=== PATIENT | male | born 1935 | race Caucasian/White ===

== ENCOUNTER → 2016-12-03 | Outpatient (CLI) | payer BC ==
[~2016-12-03] MED LIST: ASPCH81X PO; BCTO EXT; CEPH500C2 PO; CHOL400C10 PO; CIPR-255 PO; CIPR1TAB10 PO; CLC/300 PO; CMD5 PO; CYAN100048 PO; DILT-113 PO; DILT180C58 PO; GLUC15002 PO; HYDR-5688 PO; LEVO100T PO; LPR25 PO; MAGN250T8 PO; METR-163 PO; MULT1CHW22 PO; SACC250C3 PO; WARF5TAB7 PO
[2016-12-03 13:25] LABS: URINE APPEARANCE CLEAR (CLEAR); URINE BILIRUBIN NEG (NEG); URINE COLOR YELLOW; URINE EPITHELIAL CELL AUTO 0-5 /lpf (0-5); URINE NITRITE NEG (NEG); URINE SPECIFIC GRAVITY 1.017 (1.000-1.030); UROBILINOGEN NEG (NEG); ZZUR CULT IF INDIC CLEAN CATCH NO
[2016-12-03 13:36] LABS: MANUAL MICROSCOPIC REQUIRED? NO; REVIEW REQ? NO
== END | disposition home or self-care (01) ==
LOC: C.LABBC 11:20
PROVIDERS: ATTEND Internal Medicine
DX: R35.0 Frequency of micturition (principal)

== ENCOUNTER 2016-12-16 12:35 | Inpatient (IN) | payer BC, OTHER ==
[~2016-12-16] VITALS: Ht 175.3 cm; Wt 80.6 kg
[~2016-12-16 12:35] MED LIST changes: -BCTO EXT; -CEPH500C2 PO; -CIPR-255 PO; -CIPR1TAB10 PO; -CLC/300 PO; -CMD5 PO; -DILT-113 PO; -DILT180C58 PO; -HYDR-5688 PO; -LPR25 PO; -METR-163 PO; -SACC250C3 PO; -WARF5TAB7 PO
[2016-12-16] MEDS ORDERED: DILTIAZEM BOLUS / DRIP IV STA ×2 (13:31→21:20)
[2016-12-16] MEDS ORDERED: SODIUM CHLORIDE 0.9% 1000ML 1,000 ML IV STA ×2 (13:31→14:53)
[2016-12-16] MEDS ORDERED: DILTIAZEM HCL 5 MG/ML 5 ML VIAL ONE (13:36)
[2016-12-16 13:40] LABS: BASO % 0.1 %; BASO ABS # 0.01 K/uL (0-0.2); COMPLETE YES; HEMATOCRIT 43.4 % (42-52); IG% 0.4 %; LYMPH ABS # 0.47 K/uL (1.2-3.4); MEAN CELL VOLUME 92.1 fL (80-100); MEAN CORPUSCULAR HEMOGLOBIN 32.7 pg (25-34); MEAN CORPUSCULAR HGB CONC 35.5 g/dl (32-36); MEAN PLATELET VOLUME 10.5 fL (7.4-10.4); MONO % 6.9 %; NEUT % 87.6 %; PLATELET COUNT 202 K/uL (130-400); RED BLOOD COUNT 4.71 M/uL (4.7-6.1); WHITE BLOOD COUNT 9.43 K/uL (4.8-10.8)
[2016-12-16] MEDS ORDERED: DILTIAZEM HCL INJ 125 MG in DEXTROSE 5% 100ML IV PRN (13:45)
[2016-12-16 13:47] LABS: ALT/SGPT 500 U/L (12-78); AST/SGOT 548 U/L (15-37); BLOOD UREA NITROGEN 17 mg/dl (7-18); CALCIUM 8.6 mg/dl (8.5-10.1); CARBON DIOXIDE 24 mmol/L (21-32); CHLORIDE 105 mmol/L (98-107); GLUCOSE 164 mg/dl (70-99); POTASSIUM 3.9 mmol/L (3.5-5.1); SODIUM 138 mmol/L (136-145)
[2016-12-16 13:53] LABS: ALKALINE PHOSPHATASE 391 U/L (45-117); CKMB/CK RATIO 4.1 (0-3.0)
--- NOTE | 2016-12-16 13:53 | DIAGNOSTIC IMAGING REPORT ---
SINGLE VIEW CHEST CLINICAL HISTORY: Atypical chest pain. FINDINGS: An AP, portable, upright chest radiograph is obtained. No prior studies are available for comparison at the time of dictation. The examination is mildly degraded by portable technique and patient rotation. The heart is mildly enlarged and there is atherosclerotic calcification of the thoracic aorta. The pulmonary vasculature is noncongested. There is mild bibasilar atelectasis. No airspace consolidation or large pleural effusion is seen. Linear atelectasis is noted in the right midlung. No pneumothorax is seen. The skeletal structures are osteopenic. The bony thorax is grossly intact. IMPRESSION: Mild cardiac enlargement with no acute cardiopulmonary abnormality. Electronically signed by: Stanley Lancaster M.D. 12/16/2016 1:52 PM Dictated Date/Time: 12/16/2016 1:51 PM
[2016-12-16] MEDS ORDERED: OPTIRAY 320 IV PRN (14:00)
--- NOTE | 2016-12-16 14:34 | DIAGNOSTIC IMAGING REPORT ---
CT SCAN OF THE ABDOMEN AND PELVIS WITH IV CONTRAST CLINICAL HISTORY: Lower abdominal pain. COMPARISON STUDY: Abdominal CT dated 08/28/2006. TECHNIQUE: Following the IV administration of 92 cc of Optiray 320, CT scan of the abdomen and pelvis is performed from the lung bases to the proximal femora. Images are reviewed in the axial, sagittal, and coronal planes. IV contrast was administered without complication. Automated dose control exposure was utilized. CT DOSE: 391.80 mGy.cm FINDINGS: Lung bases: The heart is enlarged and there is trace pericardial effusion. There is bibasilar atelectasis. No airspace consolidation or pleural effusion is identified. A tiny hiatal hernia is identified. Liver: The contrast-enhanced liver is normal in size, contour, and attenuation. There is mild central intrahepatic biliary ductal dilatation. The hepatic veins and portal veins are patent. An 8 mm hypodensity in the left lobe likely represents a cyst but is too small for definitive characterization. Inflammatory stranding is noted in the hepatic hilum secondary to acute cholecystitis. Gallbladder: The gallbladder is distended. The gallbladder wall is markedly thickened, and there is extensive pericholecystic inflammatory change as well as pericholecystic fluid. The appearance is consistent with severe acute cholecystitis. Foci of gas are noted within the gallbladder lumen. Spleen: Normal in size and attenuation. Pancreas: Unremarkable. Adrenal glands: Unremarkable. Kidneys: The contrast enhanced kidneys demonstrate mild cortical atrophy and are without hydronephrosis. The kidneys enhance symmetrically. There is a 5.5 cm left renal cyst. Abdominal vasculature: The abdominal aorta is normal in course and caliber noting moderate atherosclerotic calcification. Bowel: Duodenal diverticula are noted. No bowel obstruction is seen. The colon is tortuous. There is mild colonic diverticulosis without CT evidence of acute diverticulitis. Colonic fecal retention is observed. There is mild colonic wall thickening at the hepatic flexure, likely related to adjacent cholecystitis. The appendix is not identified and reported surgically absent. Peritoneum: There is no intraperitoneal free air or abdominal ascites. Lymphadenopathy: None. Pelvic viscera: The bladder, prostate, and seminal vesicles are normal as visualized. There is a small fat-containing right inguinal hernia. Skeletal structures: The skeletal structures are osteopenic. There is mild to moderate lumbosacral spondylosis. No lytic or blastic lesions are seen. IMPRESSION: 1. Findings are consistent with severe acute cholecystitis, possibly emphysematous. Surgical consultation is advised. 2. There is wall thickening in the hepatic flexure of the colon, likely related to adjacent cholecystitis. 3. Cardiomegaly. 4. Mild colonic diverticulosis without CT evidence of acute diverticulitis. 5. Additional findings as above. Electronically signed by: Stanley Lancaster M.D. 12/16/2016 2:33 PM Dictated Date/Time: 12/16/2016 2:24 PM
[2016-12-16] MEDS ORDERED: PIPERACILLIN/TAZOBACTAM 4.5 GM/100ML D5W IV STA (14:48)
--- NOTE | 2016-12-16 15:23 | History and Physical ---
History & Physical Date & Time of Service: Dec 16, 2016 at 15:16 Chief Complaint: Fibrilations Primary Care Physician: Jose Ramon Ocampo M.D. History of Present Illness Source: patient, family This is an 81yo M with past medical history of hypothyroidism, BPH, vitamin B deficiency, who presents after approximately 5 days of flulike symptoms including fevers and chills, now with abdominal pain. The patient was in his PCPs office this morning for abdominal pain complaints, where he was found to be in A. fib with heart rate greater than 120 and so was sent to the ER. The patient admits to feeling more fatigued recently. He has been short of breath with one flight of stairs, which normally wouldn't cause sob. He denies lightheadedness or dizziness. Patient reports that he had Tmax= 101.8 on Monday night, since then his temperature has been around 100 F. Abdominal pain has been diffuse, worse after meals, although he has not been eating as much as usual. The patient has been able to tolerate fluids. He denies any nausea or vomiting. Patient has had one bowel movement since Monday, he denies diarrhea or history of constipation. The patient reports that his pain right now is tolerable, he has not required any IV pain medication, he has only taken Tylenol as an antipyretic. In the ER with liver function tests are elevated. Total bili is 4.2, direct = 2.5, AST= 548, ALC 500, ALk phos= 391, lipase = 4051, albumin 2.5. CBC is WNL EKG showing A. fib with RVR, Cardizem drip running at bedside. Past Medical/Surgical History Hypothyroidism Vitamin B deficiency BPH with LUTS Social History Smoking Status: Former Smoker Alcohol Use: socially (3 glasses of wine per week. 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[employer]) Immunizations History of Tetanus Vaccine?: Unknown History of Pneumococcal: Unknown History of Hepatitis B Vaccine: Unknown Multi-Drug Resistant Organisms History of MDRO: No Allergies Coded Allergies: Penicillins (Unverified Allergy, Unknown, RASH, 12/16/16) Home Medications Scheduled Cholecalciferol (Vitamin D 400), 400 UNITS PO DAILY Cyanocobalamin (Vitamin B-12), Unknown Dose PO DAILY Kqskqfxkxqn-Bwbkdszwxad-Ohw C- (Glucosamine 1500 Complex), 1 CAP PO DAILY Levothyroxine Sodium (Synthroid), 100 MCG PO DAILY Magnesium Oxide (Mg Supplement (Magnesium), Unknown Dose PO DAILY Review of Systems Constitutional: + fatigue, + fever, No chills, No sweats Eyes: No diplopia, No discharge ENT: No sore throat, No trouble swallowing Respiratory: + dyspnea on exertion, No cough, No dyspnea at rest, No sputum Cardiovascular: No chest pain, No palpitations Abdomen: + pain, No constipation, No diarrhea, No nausea, No vomiting Musculoskeletal: No calf pain, No joint pain, No swelling Genitourinary - Male: + dysuria (occasionally), + urinary frequency, No hematuria Neurologic: No numbness/tingling Psychiatric: No depression symptoms Endocrine: No fatigue Integumentary: No itch, No rash Physical Exam Vital Signs Date Time Temp Pulse Resp B/P Pulse Ox O2 Delivery O2 Flow Rate FiO2 12/16/16 14:30 108 22 119/73 96 Room Air 12/16/16 13:54 111 16 130/76 95 12/16/16 13:48 122 20 137/89 96 12/16/16 13:32 133 12/16/16 12:42 36.6 133 18 147/77 95 Room Air General Appearance: WD/WN, no apparent distress, + thin Head: normocephalic, atraumatic Eyes: PERRL, EOMI ENT: hearing grossly normal, pharynx normal Neck: supple, thyroid normal Respiratory/Chest: lungs clear, normal breath sounds, no respiratory distress, no accessory muscle use Cardiovascular: + tachycardia, + irregularly irregular Abdomen/GI: normal bowel sounds, soft, no organomegaly, + tenderness (right upper quadrant, no rebound tenderness or guarding) Back: normal inspection Extremities/Musculoskelatal: no calf tenderness, no pedal edema Neurologic/Psych: alert, normal reflexes, oriented x 3 Skin: normal color, warm/dry Diagnostics Laboratory Results Results Past 24 Hours Test 12/16/16 13:01 12/16/16 15:13 Range/Units White Blood Count 9.43 4.8-10.8 K/uL Red Blood Count 4.71 4.7-6.1 M/uL Hemoglobin 15.4 14.0-18.0 g/dL Hematocrit 43.4 42-52 % Mean Corpuscular Volume 92.1 80-100 fL Mean Corpuscular Hemoglobin 32.7 25-34 pg Mean Corpuscular Hemoglobin Concent 35.5 32-36 g/dl Platelet Count 202 130-400 K/uL Mean Platelet Volume 10.5 7.4-10.4 fL Neutrophils (%) (Auto) 87.6 % Lymphocytes (%) (Auto) 5.0 % Monocytes (%) (Auto) 6.9 % Eosinophils (%) (Auto) 0.0 % Basophils (%) (Auto) 0.1 % Neutrophils # (Auto) 8.26 1.4-6.5 K/uL Lymphocytes # (Auto) 0.47 1.2-3.4 K/uL Monocytes # (Auto) 0.65 0.11-0.59 K/uL Eosinophils # (Auto) 0.00 0-0.5 K/uL Basophils # (Auto) 0.01 0-0.2 K/uL RDW Standard Deviation 47.8 36.4-46.3 fL RDW Coefficient of Variation 14.2 11.5-14.5 % Immature Granulocyte % (Auto) 0.4 % Immature Granulocyte # (Auto) 0.04 0.00-0.02 K/uL Sodium Level 138 136-145 mmol/L Potassium Level 3.9 3.5-5.1 mmol/L Chloride Level 105 98-107 mmol/L Carbon Dioxide Level 24 21-32 mmol/L Anion Gap 9.0 3-11 mmol/L Blood Urea Nitrogen 17 7-18 mg/dl Creatinine 1.10 0.60-1.40 mg/dl Est Creatinine Clear Calc Drug Dose 52.7 ml/min Estimated GFR () 72.6 Estimated GFR (Non- 62.6 BUN/Creatinine Ratio 15.0 10-20 Random Glucose 164 70-99 mg/dl Calcium Level 8.6 8.5-10.1 mg/dl Total Bilirubin 4.2 0.2-1 mg/dl Direct Bilirubin 2.5 0-0.2 mg/dl Aspartate Amino Transf (AST/SGOT) 548 15-37 U/L Alanine Aminotransferase (ALT/SGPT) 500 12-78 U/L Alkaline Phosphatase 391 45-117 U/L Total Creatine Kinase 29 39-308 U/L Creatine Kinase MB 1.2 0.5-3.6 ng/ml Creatine Kinase MB Ratio 4.1 0-3.0 Troponin I < 0.015 0-0.045 ng/ml Total Protein 7.0 6.4-8.2 gm/dl Albumin 2.5 3.4-5.0 gm/dl Lipase 4051 73-393 U/L Diagnostic Radiology CT SCAN OF THE ABDOMEN AND PELVIS WITH IV CONTRAST CLINICAL HISTORY: Lower abdominal pain. COMPARISON STUDY: Abdominal CT dated 08/28/2006. TECHNIQUE: Following the IV administration of 92 cc of Optiray 320, CT scan of the abdomen and pelvis is performed from the lung bases to the proximal femora. Images are reviewed in the axial, sagittal, and coronal planes. IV contrast was administered without complication. Automated dose control exposure was utilized. CT DOSE: 391.80 mGy.cm FINDINGS: Lung bases: The heart is enlarged and there is trace pericardial effusion. There is bibasilar atelectasis. No airspace consolidation or pleural effusion is identified. A tiny hiatal hernia is identified. Liver: The contrast-enhanced liver is normal in size, contour, and attenuation. There is mild central intrahepatic biliary ductal dilatation. The hepatic veins and portal veins are patent. An 8 mm hypodensity in the left lobe likely represents a cyst but is too small for definitive characterization. Inflammatory stranding is noted in the hepatic hilum secondary to acute cholecystitis. Gallbladder: The gallbladder is distended. The gallbladder wall is markedly thickened, and there is extensive pericholecystic inflammatory change as well as pericholecystic fluid. The appearance is consistent with severe acute cholecystitis. Foci of gas are noted within the gallbladder lumen. Spleen: Normal in size and attenuation. Pancreas: Unremarkable. Adrenal glands: Unremarkable. Kidneys: The contrast enhanced kidneys demonstrate mild cortical atrophy and are without hydronephrosis. The kidneys enhance symmetrically. There is a 5.5 cm left renal cyst. Abdominal vasculature: The abdominal aorta is normal in course and caliber noting moderate atherosclerotic calcification. Bowel: Duodenal diverticula are noted. No bowel obstruction is seen. The colon is tortuous. There is mild colonic diverticulosis without CT evidence of acute diverticulitis. Colonic fecal retention is observed. There is mild colonic wall thickening at the hepatic flexure, likely related to adjacent cholecystitis. The appendix is not identified and reported surgically absent. Peritoneum: There is no intraperitoneal free air or abdominal ascites. Lymphadenopathy: None. Pelvic viscera: The bladder, prostate, and seminal vesicles are normal as visualized. There is a small fat-containing right inguinal hernia. Skeletal structures: The skeletal structures are osteopenic. There is mild to moderate lumbosacral spondylosis. No lytic or blastic lesions are seen. IMPRESSION: 1. Findings are consistent with severe acute cholecystitis, possibly emphysematous. Surgical consultation is advised. 2. There is wall thickening in the hepatic flexure of the colon, likely related to adjacent cholecystitis. 3. Cardiomegaly. 4. Mild colonic diverticulosis without CT evidence of acute diverticulitis. 5. Additional findings as above. Electronically signed by: Stanley Lancaster M.D. 12/16/2016 2:33 PM Dictated Date/Time: 12/16/2016 2:24 PM The status of this report is Signed. SINGLE VIEW CHEST CLINICAL HISTORY: Atypical chest pain. FINDINGS: An AP, portable, upright chest radiograph is obtained. No prior studies are available for comparison at the time of dictation. The examination is mildly degraded by portable technique and patient rotation. The heart is mildly enlarged and there is atherosclerotic calcification of the thoracic aorta. The pulmonary vasculature is noncongested. There is mild bibasilar atelectasis. No airspace consolidation or large pleural effusion is seen. Linear atelectasis is noted in the right midlung. No pneumothorax is seen. The skeletal structures are osteopenic. The bony thorax is grossly intact. IMPRESSION: Mild cardiac enlargement with no acute cardiopulmonary abnormality. Electronically signed by: Stanley Lancaster M.D. 12/16/2016 1:52 PM Dictated Date/Time: 12/16/2016 1:51 PM The status of this report is Signed. Draft = Not yet reviewed or approved by Radiologist. Signed = Reviewed and approved by Radiologist. EKG Vent. rate 123 BPM UT interval * ms QRS duration 138 ms QT/QTc 328/469 ms P-R-T axes * -77 20 Atrial fibrillation with RVR, right bundle branch block Impression Assessment and Plan This is an 81yo M with past medical history of hypothyroidism, BPH, vitamin B deficiency, who presents after approximately 5 days of flulike symptoms including fevers and chills, now with abdominal pain. Acute cholecystitis Pancreatitis - Admit to telemetry - Consult with general surgery by the ED, patient is requesting not to see Dr. Garcia as he is one of their neighbors - GI consulted, Dr. Shepard. Will order MRCP - CBC WNL, afebrile, no leukocytosis - Cover with antibiotics Cipro & Flagyl -patient was started on Zosyn while in the ED however he is allergic to penicillins - Nothing by mouth except sips and chips, meds - NSS @ 125mL/hr at - Pain seems to be well controlled at this time, continue on Tylenol prn for fever and pain, morphine sulfate 2 mg IV Q3H prn for severe pain - Antiemetics - Zofran on board, patient has not complained of nausea - Follow LFTs, amylase, and lipase with morning labs A. fib with RVR - New onset in the setting of acute cholecystitis - Started on a Cardizem drip in the ER, likely will resolve once infectious process resolved - Placed on telemetry unit Hypothyroidism - Continue levothyroxine BPH - Not on any medication, newly diagnosed, monitor for signs of increased urinary frequency or difficulty with voiding. Can consider a postvoid residuals and bladder scanning if necessary Vitamin B deficiency DVT prophylaxis: Teds, SCDs, out of bed CODE STATUS: DO NOT RESUSCITATE, discussed with the patient and his at bedside Disposition: Patient is from home, will need PT OT eval, discharge when medically stable Level of Care Telemetry Advanced Directives Existing Advance Directive: Yes Existing Living Will: Yes Existing Power of Waste Reclaimer: Yes Existing Health Care Proxy: Yes Resuscitation Status DO NOT RESUSCITATE VTE Prophylaxis VTE Risk Assessment Done? Y/N: Yes Risk Level: Very Low Given or contraindicated: T.E.Es Stockmisti, SCD's Assessment and Plan Attending Addendum: I have physically seen and examined this patient, have directed their medical care, have supervised the PA's activity, and agree with the H&P as noted above, with the following changes: The patient is awake, well-developed and adequately nourished, alert and oriented 3, normocephalic and atraumatic, lying in bed and in no acute distress. HEENT--PERRL, EOMI, mucous membranes and oropharynx dry. Neck--supple, no JVD or bruits, thyroid normal, trachea midline, no adenopathy. Heart--irregularly irregular and tachycardic, no murmurs, rubs or gallops. Lungs--clear bilaterally with good air movement, no respiratory distress, no accessory muscle use. Abdomen--normal bowel sounds and soft, tender right upper quadrant and epigastrium, nondistended, no hernias or masses. Extremities--no cyanosis, clubbing or edema. There are good distal pulses b/l. Dermatologic--normal skin turgor, normal color, warm and dry, no abnormal lymph nodes, no rash. Neurologic--cranial nerves II through XII grossly intact, motor and sensory examination normal. Rheumatologic--normal range of motion, nontender, muscles and joints. Psychiatric--normal affect. Assessment and Plan: Severe acute possibly emphysematous cholecystitis with gallstone pancreatitis-- the patient is allergic to penicillin, we'll therefore be started on Cipro 40 mg IV every 12 hours and Flagyl 500 mg IV every 8 hours, normal saline with potassium chloride 20 mEq at 125 mils per hour, Zofran 4 mg IV every 6 hours when necessary, Protonix 40 mg IV daily and morphine sulfate 2-4 mg IV every 2 hours when necessary. Repeat CBC with differential, chemistry profile and magnesium in the a.m. Patient has been seen by surgery Dr. Lay, who will likely perform surgery the following day. We will order an MRCP to be done tonight, and the patient will be seen by Dr. Marcos Shepard from gastroenterology. Atrial fibrillation with RVR--continue Cardidemetrius [facility]. He does have a brother with atrial fibrillation, so there is likely a genetic component being aggravated by sepsis. Hypothyroidism--continue levothyroxin sodium at 100 g by mouth daily. BPH--monitor for any symptoms of urinary retention. He has not been on any medications at this point.
[2016-12-16 15:28] LABS: REVIEW REQ? YES; URINE APPEARANCE CLEAR (CLEAR); URINE BILIRUBIN 1+ (NEG); URINE COLOR DK YELLOW; URINE NITRITE NEG (NEG); URINE PH 5.5 (4.5-7.5); URINE SPECIFIC GRAVITY 1.042 (1.000-1.030); UROBILINOGEN NEG (NEG)
[2016-12-16 15:29] LABS: MANUAL MICROSCOPIC REQUIRED? NO
[2016-12-16] MEDS: SODIUM CHLORIDE 0.9% 1000ML 1,000 ML IV SCH ×2 (15:39→23:39)
[2016-12-16] MEDS ORDERED: POLYETHYLENE (MIRALAX) 17 GM PACK PO PRN (15:45)
[2016-12-16] MEDS ORDERED: ONDANSETRON INJ 2 MG/ML 2 ML VIAL IV PRN (15:45)
[2016-12-16] MEDS ORDERED: ACETAMINOPHEN 325 MG TAB PO PRN (15:45)
[2016-12-16] MEDS ORDERED: MoRPHine SULFATE 2 MG/ML CARP IV PRN (15:45)
[2016-12-16 15:50] LABS: MAGNESIUM 2.3 mg/dl (1.8-2.4)
[2016-12-16] MEDS ORDERED: PIPERACILLIN/TAZOBACTAM 4.5 GM/100ML D5W ONE (16:10)
--- NOTE | 2016-12-16 17:13 | HISTORY & PHYSICAL EXAMINATION ---
DATE OF ADMISSION: 12/16/2016 SUMMARY: I was called by the ER physician to see this 81-year-old gentleman who had findings of acute cholecystitis, possible common bile duct obstruction. The patient had been in normal state of health, in fact he rides his bike almost daily, I know that since he is my neighbor, lives across the street from me and I see him fairly regularly. On Monday he developed some abdominal pain that was quite significant, this persisted to the point that he was nauseated, although today he has been able to take some oral intake. Denies any diarrhea. He did have some chills, quite sweaty feelings on Monday. When he came in this afternoon here in the ER, he was found to have a temperature of 36.7, a pulse 133, respirations 18, blood pressure 147/77. He is alert, coherent and in no distress. His past medical history is remarkable obtained that from the chart and his . He had a previous open surgery in the right lower quadrant and taken out an interval appendectomy for bowel pressure, prior perforation and there was no malignancy. Other than that he denies any other surgical significant history. His medication list was reviewed. At this time, Jamel has obviously a slight color of scleral icterus, but is alert, coherent and in no distress and has no abdominal discomfort as he is lying there. The physical findings of note at this time showed a significant rebound tenderness in the right upper quadrant. The abdomen is otherwise softly distended, no other tenderness appreciated. Laboratory frausto his white count is 9.43, does have a left shift. His lipase was 4051, also significantly elevated amylase. Liver function tests were all elevated consistent with a common bile duct obstruction. The CAT scan that was obtained showed severe acute cholecystitis, possibly emphysematous, there was no free air and no abdominal ascites. Also has some mild colonic thickening along the splenic flexure. Duodenal diverticulum was also noted. RECOMMENDATIONS: At this time after discussing with Dr. Argueta is to admit the patient, since this has been going on for approximately 5 days now, certainly on a clinical basis he has got a significant inflammatory process in the right upper quadrant. Eventually, they did not mention any stones. This is an acute process although I suspect that there is and with the amylase and lipase being elevated, I suspect the primary problem is cholelithiasis with choledocholithiasis. We should admit the patient, give him broad-spectrum antibiotics. There may be a need for an ERCP prior to proceeding with any surgery for his gallbladder. This was discussed in detail with the patient and his as far as our plans. Actually his voiced concern that they did not want myself to perform the surgical procedure since I live across the street from them and it is like having a family member operate on him. I advised him that there is no one here the weekend as far as another surgeon. The only other possibility would be to transfer him to a tertiary center if this situation would deteriorate prior to having someone else come on Monday. This was discussed in extensive detail with Dr. Argueta also. In general the primary thing would be to try to stabilize the patient, try to reverse somewhat the clinical course and plan accordingly whether an ERCP can be done at the same time as a cholecystectomy or if things quiet down we may need to move before an ERCP to perform a cholecystectomy. MTDErvin
[2016-12-16] MEDS ORDERED: DIGOXIN IV 250 MCG in SYRINGE 9 ML IV ONE (18:00)
[2016-12-16 18:55] VITALS: BP 139/97; PULSE 100; TEMP 38.5; O2SAT 96; Ht 175.3 cm; Wt 80.6 kg
--- NOTE | 2016-12-16 18:59 | EMERGENCY ROOM VISIT NOTE ---
History Report prepared by Andrea: Jana Bedolla Under the Supervision of: Dr. Luis Ramirez D.O. First contact with patient: 13:07 Chief Complaint: ABDOMINAL PAIN Stated Complaint: FIBRILATIONS History of Present Illness The patient is a 81 year old male who presents to the Emergency Room with complaints of persistent abdominal pain starting 5 days ago. He recounts that he felt pain and a feeling of being full in his abdomen. The next day he developed a fever which has risen as high as 102 degrees since then. He has been experiencing a lot of gas and is constipated. He has had 1 bowel movement in the last 5 days. He is feeling fatigued and sleeping more than usual. He denies any vomiting or diarrhea. He went to see his PCP and was checked for a UTI which was negative. His pulse has been elevated, but he doesn't feel his heart beating. He reports that his blood pressure was lower than usual earlier this week. He reports that he is active and bikes for 30 minutes 2-3 times a week. He does not have a history of atrial fibrillation. Source of History: patient Onset: 5 days ago Position: abdomen Quality: other (fullness, pain) Timing: other (persistent) Associated Symptoms: + fevers, No diarrhea, No vomiting Note: Pt reports being gassy and constipated. Review of Systems See HPI for pertinent positives & negatives. A total of 10 systems reviewed and were otherwise negative. Past Medical & Surgical Medical Problems: (1) Acute cholecystitis (2) Atrial fibrillation with RVR Family History Non contributory secondary to age. Social History Smoking Status: Former Smoker Marital Status: Housing Status: lives with family Occupation Status: employed Current/Historical Medications Scheduled Cholecalciferol (Vitamin D 400), 400 UNITS PO DAILY Cyanocobalamin (Vitamin B-12), Unknown Dose PO DAILY Wtccjwmuvfn-Mdmgjhzeghf-Okr C- (Glucosamine 1500 Complex), 1 CAP PO DAILY Levothyroxine Sodium (Synthroid), 100 MCG PO DAILY Magnesium Oxide (Mg Supplement (Magnesium), Unknown Dose PO DAILY Allergies Coded Allergies: Penicillins (Unverified Allergy, Unknown, RASH, 12/16/16) Physical Exam Vital Signs Date Time Temp Pulse Resp B/P Pulse Ox O2 Delivery O2 Flow Rate FiO2 12/16/16 18:12 102 12/16/16 18:09 107 25 121/75 96 Room Air 12/16/16 17:45 104 26 137/98 97 Room Air 12/16/16 16:24 105 19 141/83 96 Room Air 12/16/16 14:30 108 22 119/73 96 Room Air 12/16/16 13:54 111 16 130/76 95 12/16/16 13:48 122 20 137/89 96 12/16/16 13:32 133 12/16/16 12:42 36.6 133 18 147/77 95 Room Air Physical Exam GENERAL: Sitting up in bed, alert, well appearing, well nourished, no distress, non-toxic EYE EXAM: normal conjunctiva. OROPHARYNX: no exudate, no erythema, lips, buccal mucosa, and tongue normal and mucous membranes are moist NECK: supple, no nuchal rigidity, no adenopathy, non-tender LUNGS: Clear to auscultation. Normal chest wall mechanics HEART: Tachycardic rate, irregularly irregular rhythm. ABDOMEN: abdomen soft, non-tender, normo-active bowel sounds, no masses, no rebound or guarding. BACK: Back is symmetrical on inspection and there is no deformity, no midline tenderness, no CVA tenderness. SKIN: no rashes and no bruising UPPER EXTREMITIES: upper extremities are grossly normal. LOWER EXTREMITIES: No pitting edema. NEURO EXAM: Normal sensorium, cranial nerves II-XII grossly intact, normal speech, no gross weakness of arms, no gross weakness of legs. Medical Decision & Procedures ER Provider Diagnostic Interpretation: Xray results per the radiologist and my interpretation. Other results have been interpreted by the radiologist and reviewed by me. SINGLE VIEW CHEST CLINICAL HISTORY: Atypical chest pain. FINDINGS: An AP, portable, upright chest radiograph is obtained. No prior studies are available for comparison at the time of dictation. The examination is mildly degraded by portable technique and patient rotation. The heart is mildly enlarged and there is atherosclerotic calcification of the thoracic aorta. The pulmonary vasculature is noncongested. There is mild bibasilar atelectasis. No airspace consolidation or large pleural effusion is seen. Linear atelectasis is noted in the right midlung. No pneumothorax is seen. The skeletal structures are osteopenic. The bony thorax is grossly intact. IMPRESSION: Mild cardiac enlargement with no acute cardiopulmonary abnormality. Electronically signed by: Stanley Lancaster M.D. 12/16/2016 1:52 PM Dictated Date/Time: 12/16/2016 1:[address] SCAN OF THE ABDOMEN AND PELVIS WITH IV CONTRAST CLINICAL HISTORY: Lower abdominal pain. COMPARISON STUDY: Abdominal CT dated 08/28/2006. TECHNIQUE: Following the IV administration of 92 cc of Optiray 320, CT scan of the abdomen and pelvis is performed from the lung bases to the proximal femora. Images are reviewed in the axial, sagittal, and coronal planes. IV contrast was administered without complication. Automated dose control exposure was utilized. CT DOSE: 391.80 mGy.cm FINDINGS: Lung bases: The heart is enlarged and there is trace pericardial effusion. There is bibasilar atelectasis. No airspace consolidation or pleural effusion is identified. A tiny hiatal hernia is identified. Liver: The contrast-enhanced liver is normal in size, contour, and attenuation. There is mild central intrahepatic biliary ductal dilatation. The hepatic veins and portal veins are patent. An 8 mm hypodensity in the left lobe likely represents a cyst but is too small for definitive characterization. Inflammatory stranding is noted in the hepatic hilum secondary to acute cholecystitis. Gallbladder: The gallbladder is distended. The gallbladder wall is markedly thickened, and there is extensive pericholecystic inflammatory change as well as pericholecystic fluid. The appearance is consistent with severe acute cholecystitis. Foci of gas are noted within the gallbladder lumen. Spleen: Normal in size and attenuation. Pancreas: Unremarkable. Adrenal glands: Unremarkable. Kidneys: The contrast enhanced kidneys demonstrate mild cortical atrophy and are without hydronephrosis. The kidneys enhance symmetrically. There is a 5.5 cm left renal cyst. Abdominal vasculature: The abdominal aorta is normal in course and caliber noting moderate atherosclerotic calcification. Bowel: Duodenal diverticula are noted. No bowel obstruction is seen. The colon is tortuous. There is mild colonic diverticulosis without CT evidence of acute diverticulitis. Colonic fecal retention is observed. There is mild colonic wall thickening at the hepatic flexure, likely related to adjacent cholecystitis. The appendix is not identified and reported surgically absent. Peritoneum: There is no intraperitoneal free air or abdominal ascites. Lymphadenopathy: None. Pelvic viscera: The bladder, prostate, and seminal vesicles are normal as visualized. There is a small fat-containing right inguinal hernia. Skeletal structures: The skeletal structures are osteopenic. There is mild to moderate lumbosacral spondylosis. No lytic or blastic lesions are seen. IMPRESSION: 1. Findings are consistent with severe acute cholecystitis, possibly emphysematous. Surgical consultation is advised. 2. There is wall thickening in the hepatic flexure of the colon, likely related to adjacent cholecystitis. 3. Cardiomegaly. 4. Mild colonic diverticulosis without CT evidence of acute diverticulitis. 5. Additional findings as above. Electronically signed by: Stanley Lancaster M.D. 12/16/2016 2:33 PM Dictated Date/Time: 12/16/2016 2:24 PM Laboratory Results 12/16/16 13:01 Red Blood Count 4.71, Mean Corpuscular Volume 92.1, Mean Corpuscular Hemoglobin 32.7, Mean Corpuscular Hemoglobin Concent 35.5, Mean Platelet Volume 10.5, Neutrophils (%) (Auto) 87.6, Lymphocytes (%) (Auto) 5.0, Monocytes (%) (Auto) 6.9, Eosinophils (%) (Auto) 0.0, Basophils (%) (Auto) 0.1, Neutrophils # (Auto) 8.26, Lymphocytes # (Auto) 0.47, Monocytes # (Auto) 0.65, Eosinophils # (Auto) 0.00, Basophils # (Auto) 0.01 12/16/16 13:01 Test 12/16/16 13:01 12/16/16 15:15 White Blood Count 9.43 K/uL (4.8-10.8) Red Blood Count 4.71 M/uL (4.7-6.1) Hemoglobin 15.4 g/dL (14.0-18.0) Hematocrit 43.4 % (42-52) Mean Corpuscular Volume 92.1 fL (80-100) Mean Corpuscular Hemoglobin 32.7 pg (25-34) Mean Corpuscular Hemoglobin Concent 35.5 g/dl (32-36) Platelet Count 202 K/uL (130-400) Mean Platelet Volume 10.5 fL (7.4-10.4) Neutrophils (%) (Auto) 87.6 % Lymphocytes (%) (Auto) 5.0 % Monocytes (%) (Auto) 6.9 % Eosinophils (%) (Auto) 0.0 % Basophils (%) (Auto) 0.1 % Neutrophils # (Auto) 8.26 K/uL (1.4-6.5) Lymphocytes # (Auto) 0.47 K/uL (1.2-3.4) Monocytes # (Auto) 0.65 K/uL (0.11-0.59) Eosinophils # (Auto) 0.00 K/uL (0-0.5) Basophils # (Auto) 0.01 K/uL (0-0.2) RDW Standard Deviation 47.8 fL (36.4-46.3) RDW Coefficient of Variation 14.2 % (11.5-14.5) Immature Granulocyte % (Auto) 0.4 % Immature Granulocyte # (Auto) 0.04 K/uL (0.00-0.02) Anion Gap 9.0 mmol/L (3-11) Est Creatinine Clear Calc Drug Dose 52.7 ml/min Estimated GFR () 72.6 Estimated GFR (Non- 62.6 BUN/Creatinine Ratio 15.0 (10-20) Calcium Level 8.6 mg/dl (8.5-10.1) Magnesium Level 2.3 mg/dl (1.8-2.4) Total Bilirubin 4.2 mg/dl (0.2-1) Direct Bilirubin 2.5 mg/dl (0-0.2) Aspartate Amino Transf (AST/SGOT) 548 U/L (15-37) Alanine Aminotransferase (ALT/SGPT) 500 U/L (12-78) Alkaline Phosphatase 391 U/L (45-117) Total Creatine Kinase 29 U/L (39-308) Creatine Kinase MB 1.2 ng/ml (0.5-3.6) Creatine Kinase MB Ratio 4.1 (0-3.0) Troponin I < 0.015 ng/ml (0-0.045) Total Protein 7.0 gm/dl (6.4-8.2) Albumin 2.5 gm/dl (3.4-5.0) Amylase Level 745 U/L (25-115) Lipase 4051 U/L (73-393) Urine Color DK YELLOW Urine Appearance CLEAR (CLEAR) Urine pH 5.5 (4.5-7.5) Urine Specific Perkins 1.042 (1.000-1.030) Urine Protein 1+ (NEG) Urine Glucose (UA) NEG (NEG) Urine Ketones NEG (NEG) Urine Occult Blood TRACE (NEG) Urine Nitrite NEG (NEG) Urine Bilirubin 1+ (NEG) Urine Urobilinogen NEG (NEG) Urine Leukocyte Esterase NEG (NEG) Urine WBC (Auto) 1-5 /hpf (0-5) Urine RBC (Auto) 0-4 /hpf (0-4) Urine Hyaline Casts (Auto) 1-5 /lpf (0-5) Urine Epithelial Cells (Auto) 10-20 /lpf (0-5) Urine Bacteria (Auto) NEG (NEG) Urine Yeast (Auto) PRESENT (NONE PRSENT) Laboratory results per my review. Medications Administered Medications (Trade) Dose Ordered Sig/Melanie Route Start Time Stop Time Status Last Admin Dose Admin Sodium Chloride 1,000 ml @ 999 mls/hr Q1H1M STAT IV 12/16/16 13:31 12/16/16 14:31 DC 12/16/16 13:43 999 MLS/HR Diltiazem HCl/ Dextrose (Cardizem Inj/D5 100ml) 125 ml @ 0 mls/hr Q0M PRN IV 12/16/16 13:45 01/15/17 13:44 12/16/16 13:53 5 MLS/HR Diltiazem HCl 25 mg 25 mg STK-MED ONCE .ROUTE 12/16/16 13:36 12/16/16 13:40 DC 12/16/16 13:45 10 MG Sodium Chloride 1,000 ml @ 999 mls/hr Q1H1M STAT IV 12/16/16 14:53 12/16/16 15:53 DC 12/16/16 16:28 999 MLS/HR Sodium Chloride 1,000 ml @ 125 mls/hr Q8H IV 12/16/16 15:39 01/15/17 15:38 12/16/16 15:39 125 MLS/HR Digoxin/Syringe (Digoxin IV/ Syringe) 10 ml @ 2 mls/min 1800 ONCE IV 12/16/16 18:00 12/16/16 18:04 DC 12/16/16 18:12 2 MLS/MIN ECG Indication: tachycardia Rate (beats per minute): 123 Rhythm: atrial fibrillation (with RVR) Findings: PVC, RBBB, ST depression (Anterior), left axis deviation Comparison ECG Date: Change: A fib is new. ED Course ED COURSE: Vital signs were reviewed and showed tachycardia. The patients medical record was reviewed The above diagnostic studies were performed and reviewed. ED treatments and interventions as stated above. 1318: The patient was evaluated in room A11B. A complete history and physical examination was performed. 1331: NSS 1000 ml @ 999 mls/hr IV. 1336: Cardizem Inj 25 mg IV. 1345: Diltiazem HCl 125 mg/Dextrose 125 ml @ 0 mls/hr IV. 1453: I reevaluated the patient. He is resting comfortably. I updated him on the results. 1512: I discussed the patient's case with Dr. Argueta, [facility] - hospitalist. I will consult with general surgery. 1539: I discussed the patient's case with Dr. Garcia, [facility] - general surgery. The patient will be evaluated for further management. 1541: I reevaluated the patient. He is resting comfortably. I updated the patient. He would not like to see Dr. Garcia. 1616: I discussed the patient's case with Dr. Shepard, [facility] - gastroenterology. He will evaluate the patient for further management. 1620: Upon reevaluation, the patient is resting comfortably. I discussed my findings with the him and he understands and agrees with the treatment plan. Based on the patients age, coexisting illnesses, exam and lab findings the decision to treat as an inpatient was made. The patient remained stable while under my care. The patient will be evaluated for further management. Medical Decision Differential Diagnosis includes but is not limited to dehydration, stroke, anemia, hypoglycemia, hyponatremia, hypernatremia, urinary tract infection, pneumonia, bronchitis, sepsis, gastroenteritis, additional abdominal pathology, metabolic abnormalities and infections. Patient is an 81-year-old male who presents the ER in [facility] with RVR. His heart rate was in the 130s. Systolic blood pressures were stable. He ss also complaining of abdominal pain. Labs show no significant leukocytosis or anemia. BMP was unremarkable. LFTs were elevated in the 500s along with his lipase of 4,000. Total bili and direct bili were also elevated. CT of his abdomen and pelvis shows acute cholecystitis. Patient's abdominal exam was fairly benign. He is placed on a Cardizem drip at 5 mg an hour and given a bolus of 10 mg. Heart rate returned down to 110s. He was also given a bolus normal saline. He was given IV antibiotics. I discussed the case with general surgery, internal medicine and GI. He is evaluated at bedside. He is admitted to internal medicine. This gentleman is neighbors with Dr. Branch he does not want him operating on him. He was evaluated at bedside by general surgery. I did update general surgery in regards to this. Patient was admitted to internal medicine with A. fib RVR likely secondary to cholecystitis on a Cardizem drip. Consults Time Called: 1506 Consulting Physician: Dr. Argueta, [facility] - hospitalist Returned Call: 1512 I discussed the patient's case with him. I will consult with general surgery. Additional Consults: Time Called: 1530 Consulted Physician: Dr. Garcia, [facility] - general surgery Returned Call: 1539 Additional Comments: I discussed the patient's case with him. The patient will be evaluated for further management. Time Called: 1605 Consulted Physician: Dr. Shepard, [facility] - gastroenterology Returned Call: 1616 Additional Comments: I discussed the patient's case with him. He will evaluate the patient for further management Impression Primary Impression: Acute cholecystitis Additional Impression: Atrial fibrillation with RVR Critical Care I have personally spent 35 minutes of critical care time in the direct management of this patient. This includes bedside care, interpretation of diagnostic studies, and testing, discussion with consultants, patient, and family members, and other required patient management activities. This 35 minutes is in excess of all separately billable procedures. Scribe Attestation The scribe's documentation has been prepared under my direction and personally reviewed by me in its entirety. I confirm that the note above accurately reflects all work, treatment, procedures, and medical decision making performed by me. Departure Information Dispostion Being Evaluated By Hospitalist Jose Ramon Rdz M.D. (PCP) Patient Instructions My [facility] Problem Qualifiers
[2016-12-16] MEDS: METRONIDAZOLE / NSS 500 MG in PREMIXED NSS 100 ML IV SCH (20:25)
[2016-12-16] MEDS: CIPROFLOXACIN / D5W 400 MG in PREMIXED IN D5W 200 ML IV SCH (20:27)
[2016-12-16] MEDS: DILTIAZEM HCL INJ 125 MG in DEXTROSE 5% 100ML IV PRN (20:40)
[2016-12-16 20:43] VITALS: TEMP 37.2
[2016-12-16 23:25] VITALS: BP 121/71; PULSE 81; TEMP 36.9; O2SAT 96
[2016-12-16 23:59] VITALS: O2SAT 96
[2016-12-17] VITALS (10 sets, daily range): BP systolic 119–136; BP diastolic 62–80; PULSE 84–96; TEMP 37–38; O2SAT 95–98
--- NOTE | 2016-12-17 01:36 | GASTROINTESTINAL CONSULTATION ---
DATE OF CONSULTATION: 12/16/2016 REASON FOR EVALUATION: Acute cholecystitis. HISTORY OF PRESENT ILLNESS: The patient is an 81-year-old male with a 5-day history of progressively worsening fevers, chills and abdominal pain that is localized now to the right upper quadrant. He presented to the Emergency Room today and underwent a CT scan. His liver tests were noted to be abnormal with a bilirubin of 4.2, AST 548, ALT 500, alkaline phosphatase 391, lipase 4051. EKG showed AFib with rapid rate response at 120. The patient on CT scan shows an acutely inflamed gallbladder with markedly thickened wall with air within the gallbladder. There was some surrounding edema involving the hepatic flexure of the colon as well. The pancreas did not look inflamed that is on CT scan and there was no mention of stones in the gallbladder or common bile duct. An MRCP has been ordered to evaluate his common duct. The atrial fibrillation is new for this patient. PAST MEDICAL HISTORY: Remarkable for an appendectomy, left inguinal hernia repair, BPH and hypothyroidism. MEDICATIONS: Vitamin D, vitamin B12, glucosamine, Synthroid, magnesium. ALLERGIES: PENICILLIN. FAMILY HISTORY: Noncontributory. SOCIAL HISTORY: The patient is . Former smoker, drinks 3 glasses of wine per week. REVIEW OF SYSTEMS: The patient is complaining of abdominal pain and some urinary frequency. The remainder is negative. PHYSICAL EXAMINATION: GENERAL: The patient appears mildly icteric but in no acute distress. VITAL SIGNS: Blood pressure is 119/73, pulse 120, irregularly irregular. Room air saturations 96%. Sclerae are slightly icteric. LUNGS: Clear. HEART: Showed an irregularly irregular rhythm at 120. ABDOMEN: Showed a right lower quadrant left inguinal scars. There is tenderness in the right upper quadrant. No rebound tenderness, however. NEUROLOGIC: Grossly normal. IMPRESSION: The patient has acute severe cholecystitis with probable gallstone pancreatitis as well. The situation is complicated by new onset rapid atrial fibrillation which has not responded so far to IV diltiazem. After conversations with the patient and his along with Dr. Argueta and Dr. Garcia we felt that we would like to continue the patient on IV antibiotics overnight as well as IV diltiazem. We will get an MRCP to evaluate his common bile duct and reevaluate him tomorrow. The patient is not eager to be transferred to a tertiary medical center, Dr. Garcia was contemplating doing a laparoscopic cholecystectomy tomorrow and potentially converting it to an open cholecystectomy to evaluate the bile duct if needed. We also have the option of considering an endoscopic retrograde cholangiopancreatography along with the surgical procedural, although this may be difficult with pancreatic edema and duodenal diverticula present. We plan to reassess the situation in the morning and plan for surgery tomorrow. This process was explained to the patient and his and they are in agreement.
[2016-12-17] MEDS: DILTIAZEM HCL INJ 125 MG in DEXTROSE 5% 100ML IV PRN (02:15)
[2016-12-17] MEDS: SODIUM CHLORIDE 0.9% 1000ML 1,000 ML IV SCH ×3 (02:16→23:45)
[2016-12-17] MEDS: METRONIDAZOLE / NSS 500 MG in PREMIXED NSS 100 ML IV SCH ×3 (04:45→20:02)
[2016-12-17] MEDS ORDERED: LEVOTHYROXINE 100 MCG TAB PO SCH (06:00)
[2016-12-17 06:11] LABS: BASO % 0.1 %; BASO ABS # 0.01 K/uL (0-0.2); COMPLETE YES; EOS % 0.2 %; IG% 0.3 %; LYMPH % 5.6 %; LYMPH ABS # 0.49 K/uL (1.2-3.4); MEAN CELL VOLUME 90.5 fL (80-100); MEAN CORPUSCULAR HEMOGLOBIN 31.3 pg (25-34); MEAN CORPUSCULAR HGB CONC 34.5 g/dl (32-36); MEAN PLATELET VOLUME 10.3 fL (7.4-10.4); MONO % 8.8 %; PLATELET COUNT 190 K/uL (130-400); RED BLOOD COUNT 4.64 M/uL (4.7-6.1); WHITE BLOOD COUNT 8.68 K/uL (4.8-10.8)
[2016-12-17 07:11] LABS: BUN/CREATININE RATIO 13.8 (10-20); CREATININE 0.88 mg/dl (0.60-1.40); POTASSIUM 3.6 mmol/L (3.5-5.1)
[2016-12-17] MEDS: CIPROFLOXACIN / D5W 400 MG in PREMIXED IN D5W 200 ML IV SCH ×2 (09:10→20:02)
[2016-12-17] MEDS: PANTOprazole SOD 40 MG TAB PO SCH (09:10)
--- NOTE | 2016-12-17 09:11 | Hospitalist Progress Note ---
Hospitalist Progress Note Date of Service Dec 17, 2016. Subjective Pt evaluation today including: conversation w/ patient, physical exam, chart review, lab review, conversation w/ library sales consultant (Cardiology, GI), review of inpatient medication list PO Intake: NPO Voiding: no voiding problems pt still with some RUQ pain but manageable, not taking pain meds last night. Rapid a-fib now rate controlled. No N/V/D or GI bleeding. No CP/SOB/palpitations , no h/o syncope or presyncope symptoms. No known previous A-fib and last cardiac stress test was over 10 yrs ago after having a RBBB seen on ECG for preop eval. He believes that was normal. He rides a bicycle almost daily and states he swam 220 times last year alone, very active and never has any CP or SOB Constitutional: + fever Eyes: No problem reported ENT: No problem reported Respiratory: No shortness of breath Cardiovascular: No chest pain, No edema, No palpitations Abdomen: + pain, No GI bleeding, No diarrhea, No nausea, No vomiting All Other Systems: Reviewed and Negative Objective Vital Signs Date Time Temp Pulse Resp B/P Pulse Ox O2 Delivery O2 Flow Rate FiO2 12/17/16 04:07 37.2 94 18 127/70 98 Room Air 12/17/16 04:00 96 Room Air 12/16/16 23:59 96 Room Air 12/16/16 23:25 36.9 81 21 121/71 96 Room Air 12/16/16 20:43 37.2 12/16/16 20:00 Room Air 12/16/16 18:55 38.5 100 18 139/97 96 Room Air 12/16/16 18:12 102 12/16/16 18:09 107 25 121/75 96 Room Air 12/16/16 17:45 104 26 137/98 97 Room Air 12/16/16 16:24 105 19 141/83 96 Room Air 12/16/16 14:30 108 22 119/73 96 Room Air 12/16/16 13:54 111 16 130/76 95 12/16/16 13:48 122 20 137/89 96 12/16/16 13:32 133 12/16/16 12:42 36.6 133 18 147/77 95 Room Air Physical Exam General Appearance: WD/WN, no apparent distress Eyes: + abnormal sclerae exam (icterus) ENT: hearing grossly normal, pharynx normal Neck: supple, no adenopathy, thyroid normal, trachea midline Respiratory/Chest: lungs clear, normal breath sounds, no respiratory distress, no accessory muscle use Cardiovascular: no edema, no murmur, + irregularly irregular (with normal rate) Abdomen: no organomegaly, + abnormal bowel sounds (hypoactive BS), + tenderness (in RUQ with some guarding, no rebound tenderness, abd otherwise soft) Extremities: non-tender, normal inspection, no pedal edema, no calf tenderness Neurologic/Psychiatric: no motor/sensory deficits, alert, normal mood/affect, oriented x 3 Skin: warm/dry, no rash, + jaundice Lymphatic: no adenopathy Laboratory Results Last 24 Hours Test 12/16/16 13:01 12/16/16 15:15 12/17/16 05:26 White Blood Count 9.43 K/uL 8.68 K/uL Red Blood Count 4.71 M/uL 4.64 M/uL Hemoglobin 15.4 g/dL 14.5 g/dL Hematocrit 43.4 % 42.0 % Mean Corpuscular Volume 92.1 fL 90.5 fL Mean Corpuscular Hemoglobin 32.7 pg 31.3 pg Mean Corpuscular Hemoglobin Concent 35.5 g/dl 34.5 g/dl Platelet Count 202 K/uL 190 K/uL Mean Platelet Volume 10.5 fL 10.3 fL Neutrophils (%) (Auto) 87.6 % 85.0 % Lymphocytes (%) (Auto) 5.0 % 5.6 % Monocytes (%) (Auto) 6.9 % 8.8 % Eosinophils (%) (Auto) 0.0 % 0.2 % Basophils (%) (Auto) 0.1 % 0.1 % Neutrophils # (Auto) 8.26 K/uL 7.37 K/uL Lymphocytes # (Auto) 0.47 K/uL 0.49 K/uL Monocytes # (Auto) 0.65 K/uL 0.76 K/uL Eosinophils # (Auto) 0.00 K/uL 0.02 K/uL Basophils # (Auto) 0.01 K/uL 0.01 K/uL RDW Standard Deviation 47.8 fL 47.8 fL RDW Coefficient of Variation 14.2 % 14.4 % Immature Granulocyte % (Auto) 0.4 % 0.3 % Immature Granulocyte # (Auto) 0.04 K/uL 0.03 K/uL Sodium Level 138 mmol/L 141 mmol/L Potassium Level 3.9 mmol/L 3.6 mmol/L Chloride Level 105 mmol/L 108 mmol/L Carbon Dioxide Level 24 mmol/L 23 mmol/L Anion Gap 9.0 mmol/L 10.0 mmol/L Blood Urea Nitrogen 17 mg/dl 12 mg/dl Creatinine 1.10 mg/dl 0.88 mg/dl Est Creatinine Clear Calc Drug Dose 52.7 ml/min 65.9 ml/min Estimated GFR () 72.6 93.4 Estimated GFR (Non- 62.6 80.6 BUN/Creatinine Ratio 15.0 13.8 Random Glucose 164 mg/dl 93 mg/dl Calcium Level 8.6 mg/dl 8.0 mg/dl Magnesium Level 2.3 mg/dl Total Bilirubin 4.2 mg/dl 3.4 mg/dl Direct Bilirubin 2.5 mg/dl 1.6 mg/dl Aspartate Amino Transf (AST/SGOT) 548 U/L 264 U/L Alanine Aminotransferase (ALT/SGPT) 500 U/L 353 U/L Alkaline Phosphatase 391 U/L 304 U/L Total Creatine Kinase 29 U/L Creatine Kinase MB 1.2 ng/ml Creatine Kinase MB Ratio 4.1 Troponin I < 0.015 ng/ml Total Protein 7.0 gm/dl 6.1 gm/dl Albumin 2.5 gm/dl 2.1 gm/dl Amylase Level 745 U/L Lipase 4051 U/L 1392 U/L Urine Color DK YELLOW Urine Appearance CLEAR Urine pH 5.5 Urine Specific [place] 1.042 Urine Protein 1+ Urine Glucose (UA) NEG Urine Ketones NEG Urine Occult Blood TRACE Urine Nitrite NEG Urine Bilirubin 1+ Urine Urobilinogen NEG Urine Leukocyte Esterase NEG Urine WBC (Auto) 1-5 /hpf Urine RBC (Auto) 0-4 /hpf Urine Hyaline Casts (Auto) 1-5 /lpf Urine Epithelial Cells (Auto) 10-20 /lpf Urine Bacteria (Auto) NEG Urine Yeast (Auto) PRESENT Assessment and Plan This is an 81yo M with past medical history of hypothyroidism, BPH, vitamin B deficiency, who presents after approximately 5 days of abdominal pain in RUQ with fevers and chills, found to have severe acute cholecystitis, acute pancreatitis, possible choledocholithiasis, and new onset rapid atrial fibrillation. Severe acute possibly emphysematous cholecystitis with suspected gallstone pancreatitis--LFTs and lipase improved today, seen by Dr. Morris of Surgery today and plan to cool off with abx while LFTs trend downward and consider surgery on day to day basis, but no surgery today. Discussed with Dr. Shepard and will get MRCP today -continue Cipro 400 mg IV every 12 hours and Flagyl 500 mg IV every 8 hours -continue normal saline with potassium chloride 20 mEq at 125 mils per hour -continue Zofran prn, Protonix 40 mg IV daily and morphine sulfate 2-4 mg IV every 2 hours when necessary. -follow labs -keep NPO today for MRCP and possible ERCP if needed A. fib with RVR-new onset, asymptomatic, new onset in the setting of acute cholecystitis very active normally without any limiting symptoms, no significant cardiac history except chronic RBBB as per pt. Rates better controlled today on dilt gtt. Case d/w Cardiology Dr. Schuster. -continue on telemetry unit -switch to po diltiazem 30mg po q6h today and stop dilt gtt -consider AC after surgery, will not start heparin gtt now as may be going to ERCP today and surgery tomorrow anyway Hypothyroidism-TSH normal in 09/2016, now with rapid a-fib - Continue levothyroxine but switch to IV 50 mcg daily while NPO -check TSH. FT4,FT3 BPH - Not on any medication, newly diagnosed, monitor for signs of increased urinary frequency or difficulty with voiding. Can consider a postvoid residuals and bladder scanning if necessary Vitamin B deficiency-B12 level 700 in 09/2016, stable -restart po B12 at discharge DVT prophylaxis: Teds, SCDs, out of bed GI Proph- PPI CODE STATUS: DO NOT RESUSCITATE as per discussion with admitting PA Disposition: Patient is from home, will need PT OT eval, discharge when medically stable
[2016-12-17 09:39] LABS: THYROID STIMULATING HORMONE 1.49 uIu/ml (0.300-4.500)
--- NOTE | 2016-12-17 10:48 | DIAGNOSTIC IMAGING REPORT ---
MRCP CLINICAL HISTORY: acute cholecystitis, pancreatitis, eval for CBD stones TECHNIQUE: Multiaxial MRI acquisition COMPARISON STUDY: CT dated 12/16/2016 FINDINGS: Near nondiagnostic study due to patient motion. Findings of acute cholecystitis. Significant thickening of the gallbladder wall. Significant pericholecystic infiltrative change. Moderate reactive edematous change of the hepatic flexure of the colon. Possible early developing secondary pancreatitis. MRCP component of the study shows no dilatation of pancreatic duct which appears unremarkable. Common bile duct shows no distention. Distal aspect of the common duct is not felt to be diagnostically evaluated again due to motion. May be a small diverticulum adjacent to the insertion of the common duct into the duodenal sweep. 5.3 cm left renal cyst. Kidneys negative for hydronephrosis. There is a small hepatic cyst. There is no evidence for intrahepatic biliary ductal distention. Bibasilar atelectatic changes present. IMPRESSION: 1. Somewhat limited study due to patient motion 2. The MRCP component of the study shows no well-defined filling defect although the extreme distal aspect of the common duct is not felt to be evaluated diagnostically. 3. Severe acute cholecystitis with considerable gallbladder wall thickening and pericholecystic infiltrative change. 4. Moderate reactive wall thickening hepatic flexure of the colon. 5. Probable early inflammatory change of the pancreas Electronically signed by: Sukhi Headley M.D. 12/17/2016 10:46 AM Dictated Date/Time: 12/17/2016 10:40 AM
--- NOTE | 2016-12-17 10:50 | CARDIOLOGY CONSULTATION ---
DATE OF CONSULTATION: 12/17/2016 DATE OF CONSULTATION: 12/17/2016. REFERRING PHYSICIAN: Dr. Marion Isaac. HISTORY OF PRESENT ILLNESS: Mr. Raleigh Rowe is an 81-year-old gentleman with a no known history of cardiac disease who over the past week has been experiencing symptoms of abdominal discomfort. The patient first noted fairly acute onset of abdominal bloating and discomfort last Monday evening after eating. This was later associated with the development of some documented fevers and subjective chills. The patient continued to have abdominal discomfort, marked fatigue and anorexia over the next several days. These symptoms did improve slightly prior to an evaluation in the outpatient setting on Monday. At that visit there were some concerns regarding the patient's abdominal process but he was also noted to have an elevated heart rate. An EKG confirmed the development of atrial fibrillation. During the preceding week the patient had symptoms of marked fatigue as mentioned, he did very little activity. He initially was somewhat dyspneic ascending the stairs in his home, but later in the week was able to perform this activity without symptom. He did attempt to take his blood pressure over the course of the week and at times he noticed some irregularity in the readings. The machine also gave him some error readings on occasion. He did not describe symptoms of chest discomfort or chest pressure during this period. He was not aware of any palpitations or rapid heartbeats. He denied symptoms of dizziness or lightheadedness and did not suffer a syncopal episode. In general the patient is a very active individual who bikes regularly and also swims in an end less pool at his house. He has been able to perform these activities up until this week without new limitation or symptom. He does not report symptoms of exertional chest discomfort or limiting dyspnea. At the time of this interview, the patient is feeling better. His abdominal symptoms have abated significantly. He is still unaware of any palpitations and is not reporting chest pain or dyspnea. PAST MEDICAL HISTORY: Significant for: 1. Benign prostatic hypertrophy. 2. Lumbar disc degeneration. 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 4. Hypothyroidism. PAST SURGICAL HISTORY: Significant for appendectomy and a hernia repair. OUTPATIENT MEDICATIONS: Include levothyroxine, magnesium supplementation, Viagra on a p.r.n. basis and recently Cipro for suspected lower urinary tract infection. MEDICAL ALLERGIES: No known medical allergies. FAMILY HISTORY: The patient has a fraternal twin brother who also has atrial fibrillation but does not appear to be any history of premature coronary disease. 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 He denies smoking and has no excessive alcohol intake. REVIEW OF SYSTEMS: Complete 10 system review of systems was performed and the pertinent positives are noted in the history of present illness. The patient did have some mild urinary symptoms leading up to this event on Monday. He denies lower extremity edema. He did notice a rash on his penis recently felt to be [place]. PHYSICAL EXAMINATION: GENERAL: The patient does not appear in any acute distress. He is a pleasant individual who is alert and oriented. His mood and affect appear normal. He answered all questions appropriately. CURRENT VITAL SIGNS: Include blood pressure 133/71 with pulse of 84. Sclerae are anicteric. HEAD, EYES, EARS, NOSE, AND THROAT: Pupils are equal to light and accommodation. Extraocular movements appear to be intact. Palpation of the submandibular region did not reveal any significant lymphadenopathy. The carotids were palpable bilaterally. There were no bruits on auscultation. I cannot appreciate any jugular venous distention. The thyroid was not enlarged. Auscultation of both lung jha reveal them to be clear with only occasional crackles at the bases bilaterally. Good air movement. There was no expiratory wheezing. CARDIAC EXAMINATION: Revealed him to be in an irregular, irregular rhythm. I did not appreciate any murmurs however and the PMI did not appear to be displaced. EXTREMITIES: Evaluation both wrists revealed radial pulses that were equal in intensity. There was no evidence of cyanosis or clubbing. Evaluation of the lower extremities did not reveal any significant peripheral edema. There were no rashes on examination today. LABORATORY DATA: Laboratory studies obtained this morning include a white cell count of 8.6, hemoglobin of 14.5, a platelet count of 190. Sodium was 141, potassium is 3.6, BUN was 12, creatinine was 0.8. Initial cardiac troponin was less than detectable limit. Abdominal CT was obtained at the time of admission which suggested acute cholecystitis, possibly emphysematous. A 12-lead EKG was also obtained which revealed the patient to be in atrial fibrillation with a rapid ventricular response. 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 ASSESSMENT AND PLAN: Atrial fibrillation: The patient likely developed atrial fibrillation several days ago. The exact onset is unclear, but it is very likely this occurred sometime during the preceding few days. He seems to have had few symptoms overall likely related to his intercurrent abdominal illness. I suspect if the patient had developed atrial fibrillation at a sooner date his otherwise vigorous exercise regimen would have been compromised. The etiology of his atrial fibrillation is likely age associated with his acute illness. He does not have a history of longstanding hypertension. He is not obese. He does not take any medications that are likely to precipitate such an episode. His thyroid function is normal currently. He does have some snoring at nighttime and does take a nap during the day but this is not terribly suspicious for obstructive sleep apnea. We will obtain an echocardiogram in order to exclude some structural abnormalities, although his exam is relatively benign and his overall functional status is quite good suggesting relatively normal cardiac function and structure. Efforts last night were directed at rate control, which seems most appropriate. Seems to have been effective likely due to an improvement in his clinical condition and institution of diltiazem therapy. At this point, it seems reasonable to attempt transition to an oral regimen understanding that he may have a period of reduced oral intake if surgery is planned. My hope is that when the patient's acute illness resolves that he will spontaneously return to a sinus rhythm. Should this not be the case, we could consider cardioversion at some date. With respect to anticoagulation the patient's CHADS2-VASc score is at least 2 based on age alone. He should be advised to consider long-term anticoagulant therapy, although instituting this therapy currently is relatively contraindicated given the likely need for surgery in the next 24 hours. Whether he will have additional episodes of atrial fibrillation is unclear as this one may simply be related to his acute illness; however, I think it is likely given his age and recommendation for long-term warfarin should be made. At this point, we will monitor the patient's heart rate and rhythm and follow him through his hospital course. JENAE
--- NOTE | 2016-12-17 10:58 | Surgery Progress Note ---
Surgery Progress Note Date of Service Dec 17, 2016. Subjective pt still having upper abdominal pain but is improving Objective Vital Signs: Date Time Temp Pulse Resp B/P Pulse Ox O2 Delivery O2 Flow Rate FiO2 12/17/16 08:00 96 Room Air 12/17/16 07:48 37.3 84 20 133/71 96 Room Air 12/17/16 04:07 37.2 94 18 127/70 98 Room Air 12/17/16 04:00 96 Room Air 12/16/16 23:59 96 Room Air 12/16/16 23:25 36.9 81 21 121/71 96 Room Air 12/16/16 20:43 37.2 12/16/16 20:00 Room Air 12/16/16 18:55 38.5 100 18 139/97 96 Room Air 12/16/16 18:12 102 12/16/16 18:09 107 25 121/75 96 Room Air 12/16/16 17:45 104 26 137/98 97 Room Air 12/16/16 16:24 105 19 141/83 96 Room Air 12/16/16 14:30 108 22 119/73 96 Room Air 12/16/16 13:54 111 16 130/76 95 12/16/16 13:48 122 20 137/89 96 12/16/16 13:32 133 12/16/16 12:42 36.6 133 18 147/77 95 Room Air General Appearance: no apparent distress Head: normocephalic, atraumatic Neck: supple Respiratory/Chest: no respiratory distress, no accessory muscle use Abdomen: non distended, soft, + pertinent finding (mild epigastric and RUQ ttp. no g/r/r) Extremities: no pedal edema Laboratory Results: Results Past 24 Hours Test 12/16/16 13:01 12/16/16 15:15 12/17/16 05:26 12/17/16 08:56 Range/Units White Blood Count 9.43 8.68 4.8-10.8 K/uL Red Blood Count 4.71 4.64 4.7-6.1 M/uL Hemoglobin 15.4 14.5 14.0-18.0 g/dL Hematocrit 43.4 42.0 42-52 % Mean Corpuscular Volume 92.1 90.5 80-100 fL Mean Corpuscular Hemoglobin 32.7 31.3 25-34 pg Mean Corpuscular Hemoglobin Concent 35.5 34.5 32-36 g/dl Platelet Count 202 190 130-400 K/uL Mean Platelet Volume 10.5 10.3 7.4-10.4 fL Neutrophils (%) (Auto) 87.6 85.0 % Lymphocytes (%) (Auto) 5.0 5.6 % Monocytes (%) (Auto) 6.9 8.8 % Eosinophils (%) (Auto) 0.0 0.2 % Basophils (%) (Auto) 0.1 0.1 % Neutrophils # (Auto) 8.26 7.37 1.4-6.5 K/uL Lymphocytes # (Auto) 0.47 0.49 1.2-3.4 K/uL Monocytes # (Auto) 0.65 0.76 0.11-0.59 K/uL Eosinophils # (Auto) 0.00 0.02 0-0.5 K/uL Basophils # (Auto) 0.01 0.01 0-0.2 K/uL RDW Standard Deviation 47.8 47.8 36.4-46.3 fL RDW Coefficient of Variation 14.2 14.4 11.5-14.5 % Immature Granulocyte % (Auto) 0.4 0.3 % Immature Granulocyte # (Auto) 0.04 0.03 0.00-0.02 K/uL Sodium Level 138 141 136-145 mmol/L Potassium Level 3.9 3.6 3.5-5.1 mmol/L Chloride Level 105 108 98-107 mmol/L Carbon Dioxide Level 24 23 21-32 mmol/L Anion Gap 9.0 10.0 3-11 mmol/L Blood Urea Nitrogen 17 12 7-18 mg/dl Creatinine 1.10 0.88 0.60-1.40 mg/dl Est Creatinine Clear Calc Drug Dose 52.7 65.9 ml/min Estimated GFR () 72.6 93.4 Estimated GFR (Non- 62.6 80.6 BUN/Creatinine Ratio 15.0 13.8 10-20 Random Glucose 164 93 70-99 mg/dl Calcium Level 8.6 8.0 8.5-10.1 mg/dl Magnesium Level 2.3 1.8-2.4 mg/dl Total Bilirubin 4.2 3.4 0.2-1 mg/dl Direct Bilirubin 2.5 1.6 0-0.2 mg/dl Aspartate Amino Transf (AST/SGOT) 548 264 15-37 U/L Alanine Aminotransferase (ALT/SGPT) 500 353 12-78 U/L Alkaline Phosphatase 391 304 45-117 U/L Total Creatine Kinase 29 39-308 U/L Creatine Kinase MB 1.2 0.5-3.6 ng/ml Creatine Kinase MB Ratio 4.1 0-3.0 Troponin I < 0.015 0-0.045 ng/ml Total Protein 7.0 6.1 6.4-8.2 gm/dl Albumin 2.5 2.1 3.4-5.0 gm/dl Amylase Level 745 25-115 U/L Lipase 4051 1392 73-393 U/L Urine Color DK YELLOW Urine Appearance CLEAR CLEAR Urine pH 5.5 4.5-7.5 Urine Specific [place] 1.042 1.000-1.030 Urine Protein 1+ NEG Urine Glucose (UA) NEG NEG Urine Ketones NEG NEG Urine Occult Blood TRACE NEG Urine Nitrite NEG NEG Urine Bilirubin 1+ NEG Urine Urobilinogen NEG NEG Urine Leukocyte Esterase NEG NEG Urine WBC (Auto) 1-5 0-5 /hpf Urine RBC (Auto) 0-4 0-4 /hpf Urine Hyaline Casts (Auto) 1-5 0-5 /lpf Urine Epithelial Cells (Auto) 10-20 0-5 /lpf Urine Bacteria (Auto) NEG NEG Urine Yeast (Auto) PRESENT NONE PRSENT Thyroid Stimulating Hormone (TSH) 1.490 0.300-4.500 uIu/ml Free Thyroxine 1.20 0.80-1.60 ng/dl Assessment & Plan 1. gallstone pancreatitis labs improving 2. calculous cholecystitis 3. elevated LFT's labs improving labs/clinically improving. would wait another 24-48 hours prior to surgical intervention. will monitor pancreatic enzymes and LFT's. If continue to improve , will plan lap/possible open cholecystectomy monday/monday. pt agreeable with plan
[2016-12-17] MEDS: DILTIAZEM HCL 30 MG TAB PO SCH ×3 (10:59→22:08)
--- NOTE | 2016-12-17 11:59 | PROGRESS NOTE ---
DATE: 12/17/2016 DATE: 12/17/2016. SUBJECTIVELY: The patient reports slightly decreased abdominal pain and he is somewhat hungry. Vital signs show him to be persistently in atrial fibrillation, but his rate is significantly improved since last night. It is now in the 70s-80s. Blood pressure is 133/71. LABORATORY DATA: Shows a white count of 8.68, hemoglobin 14.5, platelets 190,000. Laboratory shows bilirubin at 3.4, down from 4.2 yesterday, alkaline phosphatase is 304, amino transferases are also slightly improved since yesterday. Lipase has gone from 4,051 to 1,392. His TSH and free T4 are normal. MR CT done earlier today was of somewhat diminished quality due to some motion artifact, although his bile duct was found not to be dilated. There is no well defined filling defects in the bile duct. There was severe acute cholecystitis evident with some severe thickening of the gallbladder wall and some air within the gallbladder which is unchanged from yesterday. There is a lot of reactive inflammation around the gallbladder, including liver, pancreas and hepatic flexure of the colon. PHYSICAL EXAMINATION: GENERAL: The abdomen is soft. There is very minimal tenderness in the right upper quadrant today compared to yesterday. IMPRESSION: The patient has severe acute cholecystitis. The patient is improving on IV antibiotics and some bowel rest. There does not appear to be any common duct stone and the inflammation in his liver and pancreas appear to be surrounding bystander inflammation. At this point, the patient will be continued on his antibiotics. I plan on placing him on a full liquid diet without caffeine. He will continue on diltiazem for his atrial fibrillation and the plan is for him to have surgery tomorrow or Monday for his cholecystitis.
--- NOTE | 2016-12-17 12:00 | ECHOCARDIOGRAM REPORT ---
*NOTICE TO RECEIVING CONSTITUTION PARTY AGENCY This information is strictly Confidential and protected under [place] law. [place] law prohibits you from making any further disclosure of this information unless further disclosure is expressly permitted by the written consent of the person to whom it pertains or is authorized by law. A general authorization for the release of medical or other information is not sufficient for this purpose. Hospital accepts no responsibility if the information is made available to any other person, INCLUDING THE PATIENT. Interpretation Summary * Name: ARYA AKHTAR Study Date: 12/17/2016 10:57 AM BP: 127/70 mmHg * Patient Location: C.2E\S\E208\S\1 HR: 94 * : 1935 (M/d/yyyy) Gender: Male Height: 69 in * Age: 81 yrs Ethnicity: CA Weight: 174 lb * Ordering Physician: Marion Isaac * Referring Physician: Jose Ramon Ocampo * Performed By: Manas Garcia RCS * * Reason For Study: A-FIB * BSA: 1.9 m2 * -- Conclusions -- * Left ventricular systolic function is normal. * The left atrium is moderately dilated. * There is mild mitral regurgitation. * Moderate aortic root dilatation. * Right ventricular systolic pressure is elevated at 30-40mmHg. Procedure Details * A complete two-dimensional transthoracic echocardiogram was performed (2D, M-mode, Doppler and color flow Doppler). Left Ventricle * The left ventricle is normal in size. * There is normal left ventricular wall thickness. * Ejection Fraction = 60-65%. * Left ventricular systolic function is normal. Right Ventricle * The right ventricle is grossly normal size. * The right ventricular systolic function is normal. Atria * The left atrium is moderately dilated. * Right atrial size is normal. Mitral Valve * The mitral valve anatomy is normal. * There is mild mitral regurgitation. Tricuspid Valve * The tricuspid valve is not well visualized, but is grossly normal. * There is mild tricuspid regurgitation. * Right ventricular systolic pressure is elevated at 30-40mmHg. Aortic Valve * The aortic valve is normal in structure and function. * No hemodynamically significant valvular aortic stenosis. * Trace aortic regurgitation. Great Vessels * Moderate aortic root dilatation. Pericardium/Pleural * There is no pericardial effusion. Left Ventricular Diastolic Function * indeterminate due to arrhythmia MMode 2D Measurements and Calculations IVSd 1.2 cm IVSs 1.4 cm LVIDd 4.8 cm LVIDs 3.2 cm LVPWd 1.1 cm LVPWs 1.3 cm IVS/LVPW 1.0 FS 32.7 % EDV(Teich) 109.0 ml ESV(Teich) 42.5 ml EF(Teich) 61.1 % EDV(cubed) 112.6 ml ESV(cubed) 34.3 ml EF(cubed) 69.6 % % IVS thick 23.6 % % LVPW thick 17.4 % LV mass(C)d 205.6 grams LV mass(C)dI 105.6 grams/m\S\2 LV mass(C)s 151.3 grams LV mass(C)sI 77.7 grams/m\S\2 CO(Teich) 6.3 l/min CI(Teich) 3.2 l/min/m\S\2 SV(Teich) 66.6 ml SI(Teich) 34.2 ml/m\S\2 CO(cubed) 7.4 l/min CI(cubed) 3.8 l/min/m\S\2 SV(cubed) 78.4 ml SI(cubed) 40.2 ml/m\S\2 Ao root diam 4.7 cm Ao root area 17.0 cm\S\2 ACS 2.4 cm LA dimension 4.5 cm LA/Ao 0.96 LVAd ap4 32.0 cm\S\2 LVLd ap4 8.3 cm EDV(MOD-sp4) 101.0 ml LVAs ap4 16.9 cm\S\2 LVLs ap4 7.1 cm ESV(MOD-sp4) 34.0 ml EF(MOD-sp4) 66.3 % LVAd ap2 24.8 cm\S\2 LVLd ap2 7.6 cm EDV(MOD-sp2) 67.0 ml LVAs ap2 13.4 cm\S\2 LVLs ap2 6.5 cm ESV(MOD-sp2) 24.0 ml EF(MOD-sp2) 64.2 % CO(MOD-sp4) 6.3 l/min CI(MOD-sp4) 3.2 l/min/m\S\2 SV(MOD-sp4) 67.0 ml SI(MOD-sp4) 34.4 ml/m\S\2 CO(MOD-sp2) 4.0 l/min CI(MOD-sp2) 2.1 l/min/m\S\2 SV(MOD-sp2) 43.0 ml SI(MOD-sp2) 22.1 ml/m\S\2 Doppler Measurements and Calculations MV E max sylvia 86.0 cm/sec MV P1/2t max sylvia 106.4 cm/sec MV P1/2t 65.5 msec MVA(P1/2t) 3.4 cm\S\2 MV dec slope 475.8 cm/sec\S\2 MV dec time 0.24 sec Ao V2 max 110.2 cm/sec Ao max PG 4.9 mmHg Ao max PG (full) 2.1 mmHg AI max sylvia 353.4 cm/sec AI max PG 50.0 mmHg AI dec slope 196.7 cm/sec\S\2 AI P1/2t 526.3 msec LV V1 max PG 2.8 mmHg LV V1 max 83.4 cm/sec PA V2 max 105.0 cm/sec PA max PG 4.4 mmHg PI max sylvia 205.1 cm/sec PI max PG 16.8 mmHg PI dec slope 153.7 cm/sec\S\2 PI P1/2t 391.0 msec TR max sylvia 263.6 cm/sec
[2016-12-17] MEDS ORDERED: NURSING VERBAL MED ORDER ONE (12:15)
[2016-12-18] VITALS (9 sets, daily range): BP systolic 118–154; BP diastolic 67–98; PULSE 83–107; TEMP 36.4–37.3; O2SAT 95–97
[2016-12-18] MEDS: METRONIDAZOLE / NSS 500 MG in PREMIXED NSS 100 ML IV SCH ×3 (04:03→20:20)
[2016-12-18] MEDS: DILTIAZEM HCL 30 MG TAB PO SCH ×2 (04:03→07:39)
[2016-12-18 06:00] LABS: COMPLETE YES; EOS % 0.5 %; HEMATOCRIT 39.6 % (42-52); IG% 0.6 %; LYMPH ABS # 0.55 K/uL (1.2-3.4); MEAN CELL VOLUME 90.2 fL (80-100); MEAN CORPUSCULAR HEMOGLOBIN 31.4 pg (25-34); MEAN CORPUSCULAR HGB CONC 34.8 g/dl (32-36); MEAN PLATELET VOLUME 9.7 fL (7.4-10.4); MONO % 9.6 %; NEUT % 82.3 %; PLATELET COUNT 187 K/uL (130-400); RED BLOOD COUNT 4.39 M/uL (4.7-6.1); WHITE BLOOD COUNT 7.83 K/uL (4.8-10.8)
[2016-12-18] MEDS: SODIUM CHLORIDE 0.9% 1000ML 1,000 ML IV SCH ×3 (07:06→20:20)
[2016-12-18 07:14] LABS: BUN/CREATININE RATIO 11.7 (10-20); CREATININE 0.81 mg/dl (0.60-1.40); MAGNESIUM 1.8 mg/dl (1.8-2.4); POTASSIUM 3.5 mmol/L (3.5-5.1)
[2016-12-18] MEDS: CIPROFLOXACIN / D5W 400 MG in PREMIXED IN D5W 200 ML IV SCH ×2 (07:38→20:20)
[2016-12-18] MEDS: PANTOprazole SOD 40 MG TAB PO SCH (07:39)
[2016-12-18] MEDS ORDERED: NURSING VERBAL MED ORDER ONE (07:45)
[2016-12-18] MEDS ORDERED: DILTIAZEM HCL 30 MG TAB PO ONE (08:00)
[2016-12-18] MEDS: DILTIAZEM HCL 60 MG TAB PO SCH ×4 (09:15→23:38)
[2016-12-18] MEDS: LEVOTHYROXINE SODIUM INJ 50 MCG in SYRINGE 0 ML IV SCH (09:16)
--- NOTE | 2016-12-18 09:46 | Surgery Progress Note ---
Surgery Progress Note Date of Service Dec 18, 2016. Subjective feeling better each day. pain improved. Objective Vital Signs: Date Time Temp Pulse Resp B/P Pulse Ox O2 Delivery O2 Flow Rate FiO2 12/18/16 04:09 Room Air 12/18/16 03:22 36.4 83 20 154/67 97 Room Air 12/18/16 00:02 Room Air 12/17/16 23:19 37.3 96 20 136/80 95 Room Air 12/17/16 20:00 Room Air 12/17/16 19:37 38.0 94 18 126/68 96 Room Air 12/17/16 16:07 37.2 86 20 124/69 96 Room Air 12/17/16 16:00 96 Room Air 12/17/16 12:53 37.0 84 20 119/62 96 Room Air 12/17/16 12:00 95 Room Air General Appearance: no apparent distress Head: normocephalic Neck: supple Respiratory/Chest: no respiratory distress, no accessory muscle use Cardiovascular: regular rate, rhythm Abdomen: non distended, soft, + pertinent finding (minimal upper abdominal ttp) Extremities: normal range of motion Laboratory Results: Results Past 24 Hours Test 12/17/16 11:35 12/18/16 05:40 Range/Units Free Triiodothyronine 1.64 2.30-4.20 pg/ml White Blood Count 7.83 4.8-10.8 K/uL Red Blood Count 4.39 4.7-6.1 M/uL Hemoglobin 13.8 14.0-18.0 g/dL Hematocrit 39.6 42-52 % Mean Corpuscular Volume 90.2 80-100 fL Mean Corpuscular Hemoglobin 31.4 25-34 pg Mean Corpuscular Hemoglobin Concent 34.8 32-36 g/dl Platelet Count 187 130-400 K/uL Mean Platelet Volume 9.7 7.4-10.4 fL Neutrophils (%) (Auto) 82.3 % Lymphocytes (%) (Auto) 7.0 % Monocytes (%) (Auto) 9.6 % Eosinophils (%) (Auto) 0.5 % Basophils (%) (Auto) 0.0 % Neutrophils # (Auto) 6.44 1.4-6.5 K/uL Lymphocytes # (Auto) 0.55 1.2-3.4 K/uL Monocytes # (Auto) 0.75 0.11-0.59 K/uL Eosinophils # (Auto) 0.04 0-0.5 K/uL Basophils # (Auto) 0.00 0-0.2 K/uL RDW Standard Deviation 48.2 36.4-46.3 fL RDW Coefficient of Variation 14.5 11.5-14.5 % Immature Granulocyte % (Auto) 0.6 % Immature Granulocyte # (Auto) 0.05 0.00-0.02 K/uL Sodium Level 140 136-145 mmol/L Potassium Level 3.5 3.5-5.1 mmol/L Chloride Level 108 98-107 mmol/L Carbon Dioxide Level 24 21-32 mmol/L Anion Gap 8.0 3-11 mmol/L Blood Urea Nitrogen 9 7-18 mg/dl Creatinine 0.81 0.60-1.40 mg/dl Est Creatinine Clear Calc Drug Dose 71.6 ml/min Estimated GFR () 96.6 Estimated GFR (Non- 83.4 BUN/Creatinine Ratio 11.7 10-20 Random Glucose 106 70-99 mg/dl Calcium Level 8.0 8.5-10.1 mg/dl Magnesium Level 1.8 1.8-2.4 mg/dl Total Bilirubin 1.2 0.2-1 mg/dl Direct Bilirubin 0.4 0-0.2 mg/dl Aspartate Amino Transf (AST/SGOT) 80 15-37 U/L Alanine Aminotransferase (ALT/SGPT) 212 12-78 U/L Alkaline Phosphatase 240 45-117 U/L Total Protein 5.7 6.4-8.2 gm/dl Albumin 2.0 3.4-5.0 gm/dl Lipase 490 73-393 U/L Assessment & Plan 10/20/16 LFT's/pancreatic enzymes still elevated but continue to improve in my opinion pt ready for lap angela however pt's would prefer Dr. Xie rather than myself perform the procedure. will d/w Dr. Xie and hopefully plan lap angela tomorrow. continue current care otherwise 10/19/16 1. gallstone pancreatitis labs improving 2. calculous cholecystitis 3. elevated LFT's labs improving labs/clinically improving. would wait another 24-48 hours prior to surgical intervention. will monitor pancreatic enzymes and LFT's. If continue to improve , will plan lap/possible open cholecystectomy marilee/monday. pt agreeable with plan 1. gallstone pancreatitis labs improving 2. calculous cholecystitis 3. elevated LFT's labs improving labs/clinically improving. would wait another 24-48 hours prior to surgical intervention. will monitor pancreatic enzymes and LFT's. If continue to improve , will plan lap/possible open cholecystectomy monday/monday. pt agreeable with plan
--- NOTE | 2016-12-18 10:49 | PROGRESS NOTE ---
DATE: 12/18/2016 SUBJECTIVE: The patient reports that his abdominal pain is improving daily. He is tolerating full liquid diet. OBJECTIVE: VITAL SIGNS: Show blood pressure of 137/96, pulse is approximately 100 and he continues to be in AFib, his diltiazem drip has been adjusted accordingly. Temperature is 37.1. ABDOMEN: Soft. There is no obvious tenderness in the right upper quadrant today. LABORATORY: Shows a white count of 7.83, bilirubin is down to 1.2, alkaline phosphatase 240, lipase is 490. Thyroid blood tests are normal. IMPRESSION: The patient has acute cholecystitis. PLAN: Is for the patient to have surgery tomorrow and then depending on surgical findings the patient will require further evaluation of his atrial fibrillation by cardiology. We will continue to follow the patient during his hospital stay.
--- NOTE | 2016-12-18 13:01 | Anesthesiology Progress Note ---
Anesthesia Progress Note Date of Service Dec 18, 2016. Progress Notes The patient is an 81 y/o with a h/o hypothyroidism, BPH, new onset Afib with RVR found to have acute cholecystitis on admission scheduled for Laparoscopic cholecystectomy with Dr. Xie tomorrow. The patient was seen by cardiology on admission for his new onset Atrial fibrillation and an echocardiogram was done which showed normal LV function with EF 60-65% some LA dilation and moderate aortic root dilation. The patient is not being anticoagulated in anticipation of surgery, however his rate has improved with Diltiazem. Per cardiology, the hope is that he will spontaneously convert to NSR after his acute illness is improved. Prior to admission, the patient was very active swimming and bikes regularly with no chest pain or shortness of breath. He stated that he does not feel when his heart rate is elevated or irregular. On exam, the patient appeared comfortable. He has a Mallampati II airway with only slightly limited neck extension. His heart was irregular and tachy on exam. His heart rate for the most part remained in the low 100s with occasional episodes of HR in the 130s-140s per the nurse. Cardiology continues to follow the patient. His diltiazem dose has been increased. Recommend seeing how patient's heart rate remains overnight and touching base with cardiology prior to surgery. The patient was consented for GA. All questions were answered The patient was instructed to remain NPO after midnight except for medications which he can take with a sip of water. The patient was discussed with Dr. Jeong.
--- NOTE | 2016-12-18 13:29 | CARDIOLOGY PROGRESS NOTE ---
DATE: 12/18/2016 SUBJECTIVE: This morning Mr. Rowe claims to be feeling well. He has been ambulatory around his room without notable dizziness or dyspnea. He is not aware of any palpitations. With regard to his abdominal complaint, it seems to have abated. PHYSICAL EXAMINATION: GENERAL: He is alert and oriented. Mood and affect appeared normal. He answered all questions appropriately. VITAL SIGNS: His current vital signs include blood pressure of 118/79 with pulse of 101. LUNGS: Auscultation of his lungs revealed them to be clear. He had good air movement without expiratory wheezes. CARDIAC: Revealed him to be in an irregularly irregular rhythm. EXTREMITIES: Evaluation of lower extremities did not reveal any significant peripheral edema. LABORATORY STUDIES: Obtained today include a white cell count of 7.8, a platelet count of 187 and hemoglobin of 13.8. Sodium was 140, potassium is 3.5, BUN was 9, creatinine was 0.8. ASSESSMENT AND PLAN: 1. Atrial fibrillation. In general patient's heart rate has been well controlled on a low dose of diltiazem, however, with activity he is noted to have higher heart rate. It is reasonable at this point to up titrate his current dosing of diltiazem and monitor the effect. It is unclear whether patient will have surgery today or tomorrow. At this point, we will defer additional anticoagulation in the setting of upcoming surgery. If patient proceeds to surgery and is n.p.o. for a period of time afterwards, any elevations in heart rate can be controlled with diltiazem infusion as this has worked very well for patient in the past.
--- NOTE | 2016-12-18 17:25 | Hospitalist Progress Note ---
Hospitalist Progress Note Date of Service Dec 18, 2016. Subjective Pt evaluation today including: conversation w/ patient, conversation w/ family , physical exam, lab review, review of inpatient medication list Pt now has no abd pain at all. Still with A-fib with rates in 90s-low 100s. preferred to have Dr. Xie do his surgery so waiting for add on case tomorrow Constitutional: + fever (Tm 38.0 1930 yesterday) Respiratory: No shortness of breath Cardiovascular: No chest pain, No palpitations Abdomen: No constipation, No diarrhea, No pain, No vomiting All Other Systems: Reviewed and Negative Objective Vital Signs Date Time Temp Pulse Resp B/P Pulse Ox O2 Delivery O2 Flow Rate FiO2 12/18/16 15:36 37.0 91 18 126/73 97 Room Air 12/18/16 12:00 95 Room Air 12/18/16 11:27 37.0 101 20 118/79 96 Room Air 12/18/16 08:32 37.1 107 20 137/96 96 Room Air 12/18/16 08:00 97 Room Air 12/18/16 04:09 Room Air 12/18/16 03:22 36.4 83 20 154/67 97 Room Air 12/18/16 00:02 Room Air 12/17/16 23:19 37.3 96 20 136/80 95 Room Air 12/17/16 20:00 Room Air 12/17/16 19:37 38.0 94 18 126/68 96 Room Air Physical Exam General Appearance: WD/WN, no apparent distress Eyes: normal inspection, sclerae normal ENT: hearing grossly normal Neck: trachea midline Respiratory/Chest: lungs clear, normal breath sounds, no respiratory distress, no accessory muscle use Cardiovascular: no murmur, + irregularly irregular (with mild tachycardia) Abdomen: normal bowel sounds, non tender, soft, no organomegaly Extremities: non-tender, normal inspection, no pedal edema, no calf tenderness Neurologic/Psychiatric: alert, normal mood/affect, oriented x 3 Skin: normal color, warm/dry, no rash Laboratory Results Last 24 Hours Test 12/18/16 05:40 White Blood Count 7.83 K/uL Red Blood Count 4.39 M/uL Hemoglobin 13.8 g/dL Hematocrit 39.6 % Mean Corpuscular Volume 90.2 fL Mean Corpuscular Hemoglobin 31.4 pg Mean Corpuscular Hemoglobin Concent 34.8 g/dl Platelet Count 187 K/uL Mean Platelet Volume 9.7 fL Neutrophils (%) (Auto) 82.3 % Lymphocytes (%) (Auto) 7.0 % Monocytes (%) (Auto) 9.6 % Eosinophils (%) (Auto) 0.5 % Basophils (%) (Auto) 0.0 % Neutrophils # (Auto) 6.44 K/uL Lymphocytes # (Auto) 0.55 K/uL Monocytes # (Auto) 0.75 K/uL Eosinophils # (Auto) 0.04 K/uL Basophils # (Auto) 0.00 K/uL RDW Standard Deviation 48.2 fL RDW Coefficient of Variation 14.5 % Immature Granulocyte % (Auto) 0.6 % Immature Granulocyte # (Auto) 0.05 K/uL Sodium Level 140 mmol/L Potassium Level 3.5 mmol/L Chloride Level 108 mmol/L Carbon Dioxide Level 24 mmol/L Anion Gap 8.0 mmol/L Blood Urea Nitrogen 9 mg/dl Creatinine 0.81 mg/dl Est Creatinine Clear Calc Drug Dose 71.6 ml/min Estimated GFR () 96.6 Estimated GFR (Non- 83.4 BUN/Creatinine Ratio 11.7 Random Glucose 106 mg/dl Calcium Level 8.0 mg/dl Magnesium Level 1.8 mg/dl Total Bilirubin 1.2 mg/dl Direct Bilirubin 0.4 mg/dl Aspartate Amino Transf (AST/SGOT) 80 U/L Alanine Aminotransferase (ALT/SGPT) 212 U/L Alkaline Phosphatase 240 U/L Total Protein 5.7 gm/dl Albumin 2.0 gm/dl Lipase 490 U/L Assessment and Plan This is an 81yo M with past medical history of hypothyroidism, BPH, vitamin B deficiency, who presents after approximately 5 days of abdominal pain in RUQ with fevers and chills, found to have severe acute cholecystitis, acute pancreatitis, possible choledocholithiasis, and new onset rapid atrial fibrillation. Severe acute possibly emphysematous cholecystitis with suspected gallstone pancreatitis--LFTs and lipase continue to improve and no more abd pain, afebrile today, seen by Dr. Morris of Surgery and plan to continue abx while LFTs trend downward and now pt/ prefer Dr. Xie to do the surgery which will be on Monday MRCP without obstruction -continue Cipro 400 mg IV every 12 hours and Flagyl 500 mg IV every 8 hours -continue normal saline with potassium chloride 20 mEq and decrease to 75 mils per hour as is jozef clears -continue Zofran prn, Protonix 40 mg IV daily and morphine sulfate 2-4 mg IV every 2 hours when necessary. -follow labs -NPO after midnight for surgery Monday A. fib with RVR-new onset, asymptomatic, new onset in the setting of acute cholecystitis very active normally without any limiting symptoms, no significant cardiac history except chronic RBBB as per pt. Ratesfairly well controlled on po dilt but in 110s-120s this AM. Was on dilt gtt on admission which was weaned off and started on po dilt -continue on telemetry unit -increase po diltiazem to 60mg po q6h today and stop dilt gtt -consider AC after surgery, will not start heparin gtt now as having surgery Hypothyroidism-TSH normal in 09/2016, now with rapid a-fib. TSH normal at 1.49 - Continue levothyroxine but switch to IV 50 mcg daily while NPO BPH- RN reports urinating 100 mL at a time, frequently. Not on any medication, newly diagnosed -straight cath or place Shrestha for post-void residuals > 350 mL Vitamin B deficiency-B12 level 700 in 09/2016, stable -restart po B12 at discharge DVT prophylaxis: Teds, SCDs, out of bed GI Proph- PPI CODE STATUS: changed to FULL CODE today-pt was under the impression previously that DNR/DNI meant we would artificially prolong his life and have a long drawn out process. We discussed what being a FULL CODE means and he would like to change to that, but if his prognosis became very poor, he would not want artificial prolongation of his life beyond a few days Disposition: Patient is from home, will need PT OT eval, discharge when medically stable
[2016-12-19] VITALS (13 sets, daily range): BP systolic 103–135; BP diastolic 65–97; PULSE 100–123; TEMP 36.4–36.9; O2SAT 94–98
[2016-12-19] MEDS: METRONIDAZOLE / NSS 500 MG in PREMIXED NSS 100 ML IV SCH ×3 (04:25→19:54)
[2016-12-19] MEDS: DILTIAZEM HCL 60 MG TAB PO SCH ×4 (06:16→23:48)
--- NOTE | 2016-12-19 06:44 | Surgery Progress Note ---
Surgery Progress Note Date of Service Dec 19, 2016. Subjective No nausea, No vomiting less abd pain, afeb, awake, alert IV meds for afib Objective Vital Signs: Date Time Temp Pulse Resp B/P Pulse Ox O2 Delivery O2 Flow Rate FiO2 12/19/16 04:00 Room Air 12/19/16 03:33 36.9 100 22 132/90 96 Room Air 12/19/16 00:02 Room Air 12/18/16 23:33 37.1 98 20 139/98 95 Room Air 12/18/16 20:00 Room Air 12/18/16 19:16 37.3 99 20 135/76 96 Room Air 12/18/16 16:00 96 Room Air 12/18/16 15:36 37.0 91 18 126/73 97 Room Air 12/18/16 12:00 95 Room Air 12/18/16 11:27 37.0 101 20 118/79 96 Room Air 12/18/16 08:32 37.1 107 20 137/96 96 Room Air 12/18/16 08:00 97 Room Air General Appearance: no apparent distress Respiratory/Chest: no respiratory distress Abdomen: soft (mild upper abd tenderness) Laboratory Results: Results Past 24 Hours Test 12/19/16 04:44 Range/Units Assessment & Plan 12/19/16- discussed lap angela, possible cholangiogram, possible open operation with pt, including risks of bleeding, infection, bowel/ bile duct injury with leakage- he wishes to proceed
[2016-12-19] MEDS ORDERED: MIDAZOLAM HCL 1 MG/ML 2ML VIAL ONE (06:48)
[2016-12-19] MEDS ORDERED: FENTANYL CITRATE INJ 50 MCG/1 ML 2 ML VIAL ONE ×2 (06:48)
[2016-12-19] MEDS ORDERED: BUPIVACAINE 0.5 % 5 MG/1 ML MPF 30ML VIAL ONE (06:52)
[2016-12-19 06:55] LABS: BASO % 0.1 %; BASO ABS # 0.01 K/uL (0-0.2); COMPLETE YES; EOS % 0.6 %; HEMATOCRIT 42.9 % (42-52); IG% 0.9 %; LYMPH % 8.6 %; LYMPH ABS # 0.81 K/uL (1.2-3.4); MEAN CELL VOLUME 91.7 fL (80-100); MEAN CORPUSCULAR HEMOGLOBIN 32.1 pg (25-34); MEAN PLATELET VOLUME 9.9 fL (7.4-10.4); MONO % 8.3 %; NEUT % 81.5 %; PLATELET COUNT 233 K/uL (130-400); RED BLOOD COUNT 4.68 M/uL (4.7-6.1)
[2016-12-19 07:23] LABS: BUN/CREATININE RATIO 9.6 (10-20); CALCIUM 8.4 mg/dl (8.5-10.1); CREATININE 0.79 mg/dl (0.60-1.40); POTASSIUM 3.7 mmol/L (3.5-5.1)
[2016-12-19] MEDS ORDERED: MEPERIDINE HCL 25 MG/ML CARP IV PRN (07:30)
[2016-12-19] MEDS ORDERED: HYDROmorphone INJ 1 MG/ML SYR IV PRN ×2 (07:30→09:00)
[2016-12-19] MEDS ORDERED: FENTANYL CITRATE INJ 50 MCG/1 ML 2 ML VIAL IV PRN (07:30)
[2016-12-19] MEDS ORDERED: EpHEDrine SULFATE INJ 50 MG/ML AMP IV PRN (07:30)
[2016-12-19] MEDS ORDERED: LABETALOL HCL IV 5 MG/ML 20ML IV PRN (07:30)
[2016-12-19] MEDS ORDERED: ONDANSETRON INJ 2 MG/ML 2 ML VIAL IV PRN ×2 (07:30→09:00)
[2016-12-19] MEDS ORDERED: ATROPINE SULFATE 0.1 MG/ML 5ML SYR IV PRN (07:30)
[2016-12-19] MEDS ORDERED: PROPOFOL IV EMULSION 10 MG/ML 20 ML VIAL IV ONE ×2 (07:46)
[2016-12-19] MEDS ORDERED: METOPROLOL TARTRATE 1 MG/ML VIAL ONE (07:46)
[2016-12-19] MEDS ORDERED: GLYCOPYRROLATE INJ 0.2 MG/ML VIAL ONE (07:46)
[2016-12-19] MEDS ORDERED: LIDOCAINE HCL 2% 2 ML VIAL (20MG/ML) ONE (07:46)
[2016-12-19] MEDS ORDERED: ROCURONIUM BROMIDE 10 MG/ML 5 ML VIAL ONE (07:46)
[2016-12-19] MEDS ORDERED: NEOSTIGMINE METHYLSULFATE 5 MG/5 ML SYR ONE (07:46)
--- NOTE | 2016-12-19 08:58 | [facility] Post Operative Brief Note ---
Immediate Operative Summary Operative Date Dec 19, 2016. Pre-Operative Diagnosis Acute cholecystitis Post-Operative Diagnosis acute gangrenous cholecystitis Procedure(s) Performed Laparoscopic Cholecystectomy Surgeon Dr. Xie Recreational Therapy Technician Surgeon(s) nurses Estimated Blood Loss 50ML Findings necrotic gb with purulent fluid and some hydrops Specimens A. Gallbladder Drains #[address] YADIRA Anesthesia gen Complication(s) None Disposition Recovery Room / PACU
[2016-12-19] MEDS ORDERED: HYDROmorphone INJ 0.5 MG/0.5 ML SYR IV PRN (09:00)
[2016-12-19] MEDS ORDERED: PROMETHAZINE HCL INJ 25 MG in SODIUM CHLORIDE 0.9% 50ML 50 ML IV PRN (09:00)
[2016-12-19 09:27] LABS: HEMATOCRIT 40.4 % (42-52)
[2016-12-19] MEDS ORDERED: PROMETHAZINE HCL INJ 12.5 MG in SODIUM CHLORIDE 0.9% 50ML 50 ML IV PRN (09:30)
--- NOTE | 2016-12-19 09:44 | Anesthesiology Progress Note ---
Anesthesia Post Op Note Date & Time Dec 19, 2016 at 09:44 Vital Signs Pain Intensity: 3 Vital Signs Past 12 Hours Date Time Temp Pulse Resp B/P Pulse Ox O2 Delivery O2 Flow Rate FiO2 12/19/16 09:30 89 20 118/74 98 Nasal Cannula 4 12/19/16 09:20 107 20 127/83 98 Mask 10 12/19/16 09:10 107 20 132/77 98 Mask 10 12/19/16 09:04 36.6 88 20 123/81 95 Mask 10 12/19/16 06:50 37 125 16 145/93 96 Room Air 12/19/16 04:00 Room Air 12/19/16 03:33 36.9 100 22 132/90 96 Room Air 12/19/16 00:02 Room Air 12/18/16 23:33 37.1 98 20 139/98 95 Room Air Notes Mental Status: alert / awake / arousable, participated in evaluation Pt Amnestic to Procedure: Yes Nausea / Vomiting: adequately controlled Pain: adequately controlled Airway Patency, RR, SpO2: stable & adequate BP & HR: stable & adequate Hydration State: stable & adequate Anesthetic Complications: no major complications apparent
[2016-12-19 10:05] LABS: INR 1.2 (0.9-1.1); PARTIAL THROMBOPLASTIN RATIO 1.2; PROTHROMBIN TIME (PATIENT) 12.8 SECONDS (9.0-12.0)
[2016-12-19] MEDS: LEVOTHYROXINE SODIUM INJ 50 MCG in SYRINGE 0 ML IV SCH (10:14)
[2016-12-19] MEDS: LACTATED RINGER'S 1000ML 1,000 ML IV SCH (10:15)
[2016-12-19] MEDS: CIPROFLOXACIN / D5W 400 MG in PREMIXED IN D5W 200 ML IV SCH ×2 (10:15→20:43)
[2016-12-19] MEDS: PANTOprazole SOD 40 MG TAB PO SCH (10:15)
--- NOTE | 2016-12-19 11:35 | OPERATIVE REPORT ---
DATE OF OPERATION: 12/19/2016 NAME OF OPERATION: Laparoscopic cholecystectomy. PREOPERATIVE DIAGNOSIS: Acute cholecystitis. POSTOPERATIVE DIAGNOSIS: Acute gangrenous cholecystitis. STAFF SURGEON: Dr. Xie. ANESTHESIA: General. DESCRIPTION OF PROCEDURE: The patient was brought in the operating room and placed on the operating table in supine position. Pneumatic stockings, orogastric tube and Shrestha catheter were placed. His abdomen was prepped and draped in usual fashion. A 0.5% plain Marcaine was used to anesthetize the skin and subcutaneous tissue at all incisions. Incision was made above the umbilicus, carrying dissection down to the fascia, placing a Veress needle producing a pneumoperitoneum. At this site, an 11 mm port was placed and the camera passed. The patient's colon was diffusely dilated and the colon and omentum were adherent to the gallbladder. I was able to place 3 additional 5 mm ports, 1 cephalad and 2 laterally, all under visualization. The tip of the gallbladder was identified and then I was able to mobilize some of the tissue away from the gallbladder and then aspirate what appeared to be clear bile from the gallbladder which appeared to be hydrops. Then, I began to experience purulent fluid coming from the gallbladder. There were necrotic patches in the wall, all consistent with severe necrotizing cholecystitis. I was able to gradually retract the gallbladder and then bluntly take the acute adhesions of the omentum and colon away from the gallbladder down to the missy hepatis, which was very inflamed and thickened. Gradually, I was able to identify the cystic duct and cystic artery which were clipped and transected. The gallbladder was then dissected away from the liver and it appeared that the entire back wall of the gallbladder was severely necrotic with purulent fluid. This was irrigated and aspirated and the gallbladder gradually dissected away from the liver bed with good hemostasis. At this point, the gallbladder was placed into an Endobag and then after additional irrigation, a #19 round Edvin-Potter drain was brought through the lateral 5 mm port site into the subhepatic space, secured to the skin using 3-0 nylon suture. Using a 5 mm scope, the gallbladder was then removed through the umbilical site. I did have to enlarge the fascial defect and skin to remove the gallbladder because of the edema in the gallbladder. At this point, the fascia at the umbilicus was closed using interrupted 0 PDS suture and the skin reapproximated at all incisions using 4-0 nylon suture. During the dissection, I did encounter some small gallstones which were removed via the 5 mm ports. Dressings applied and patient was transferred to recovery room in stable condition. I attest to the content of the Intraoperative Record and any orders documented therein. Any exceptio ns are noted below.
[2016-12-19] MEDS ORDERED: METRONIDAZOLE / NSS 500 MG in PREMIXED NSS 100 ML IV SCH (14:00)
[2016-12-19] MEDS: DOCUSATE SODIUM/SENNA 50/8.6MG TAB PO SCH (20:43)
[2016-12-19] MEDS: MAGNESIUM HYDROXIDE SUSP 30 ML UDC PO SCH (20:43)
[2016-12-19] MEDS ORDERED: CIPROFLOXACIN / D5W 400 MG in PREMIXED IN D5W 200 ML IV SCH (21:00)
[2016-12-20] VITALS (10 sets, daily range): BP systolic 108–133; BP diastolic 63–104; PULSE 72–126; TEMP 36.5–36.8; O2SAT 94–99
[2016-12-20] MEDS: LACTATED RINGER'S 1000ML 1,000 ML IV SCH ×2 (04:27→18:27)
[2016-12-20] MEDS: METRONIDAZOLE / NSS 500 MG in PREMIXED NSS 100 ML IV SCH ×3 (04:28→19:38)
[2016-12-20 05:35] LABS: HEMATOCRIT 39.3 % (42-52); MEAN CELL VOLUME 90.6 fL (80-100); MEAN CORPUSCULAR HGB CONC 35.4 g/dl (32-36); MEAN PLATELET VOLUME 9.3 fL (7.4-10.4); PLATELET COUNT 249 K/uL (130-400); RED BLOOD COUNT 4.34 M/uL (4.7-6.1); WHITE BLOOD COUNT 12.55 K/uL (4.8-10.8)
[2016-12-20] MEDS: DILTIAZEM HCL 60 MG TAB PO SCH ×4 (06:01→23:45)
[2016-12-20 06:10] LABS: BUN/CREATININE RATIO 9.8 (10-20); CALCIUM 7.8 mg/dl (8.5-10.1); CREATININE 0.81 mg/dl (0.60-1.40); MAGNESIUM 2.1 mg/dl (1.8-2.4); POTASSIUM 3.9 mmol/L (3.5-5.1)
[2016-12-20 06:13] LABS: ALB/GLOB RATIO 0.5 (0.9-2); PHOSPHORUS 2.3 mg/dl (2.5-4.9)
--- NOTE | 2016-12-20 06:43 | Surgery Progress Note ---
Surgery Progress Note Date of Service Dec 20, 2016. Subjective + flatus, No nausea, No vomiting awake , alert, good UO serosang drainage, H/H stable Objective Vital Signs: Date Time Temp Pulse Resp B/P Pulse Ox O2 Delivery O2 Flow Rate FiO2 12/20/16 04:00 97 Nasal Cannula 2.0 12/20/16 02:38 36.5 121 25 133/85 97 Nasal Cannula 2.0 12/20/16 00:01 97 Nasal Cannula 2.0 12/19/16 23:18 36.7 103 21 114/77 97 Nasal Cannula 2.0 12/19/16 20:10 36.6 123 23 127/97 97 Nasal Cannula 2.0 12/19/16 20:00 97 Nasal Cannula 2.0 12/19/16 16:00 95 Nasal Cannula 2.0 12/19/16 15:36 36.5 105 20 133/86 94 Nasal Cannula 2.0 12/19/16 14:19 116 22 103/65 96 Nasal Cannula 2.0 12/19/16 13:19 113 24 123/85 95 Nasal Cannula 2.0 12/19/16 12:30 36.4 105 20 113/84 97 Room Air 12/19/16 12:19 108 21 122/88 94 Nasal Cannula 2.0 12/19/16 12:00 96 Nasal Cannula 2.0 12/19/16 11:49 102 15 135/80 98 Nasal Cannula 2.0 12/19/16 10:05 36.9 106 18 115/83 96 Nasal Cannula 3.5 12/19/16 10:05 95 Nasal Cannula 3.5 12/19/16 09:40 36.8 101 20 127/77 95 Nasal Cannula 4 12/19/16 09:30 89 20 118/74 98 Nasal Cannula 4 12/19/16 09:20 107 20 127/83 98 Mask 10 12/19/16 09:10 107 20 132/77 98 Mask 10 12/19/16 09:04 36.6 88 20 123/81 95 Mask 10 12/19/16 06:50 37 125 16 145/93 96 Room Air General Appearance: no apparent distress Respiratory/Chest: normal breath sounds Abdomen: + distended (some bowel sounds) Laboratory Results: Results Past 24 Hours Test 12/19/16 09:20 12/19/16 09:45 12/19/16 15:12 12/20/16 05:27 Range/Units Hemoglobin 13.8 14.3 13.9 14.0-18.0 g/dL Hematocrit 40.4 41.0 39.3 42-52 % Prothrombin Time 12.8 9.0-12.0 SECONDS Prothromb Time International Ratio 1.2 0.9-1.1 Activated Partial Thromboplast Time 30.6 21.0-31.0 SECONDS Partial Thromboplastin Ratio 1.2 White Blood Count 12.55 4.8-10.8 K/uL Red Blood Count 4.34 4.7-6.1 M/uL Mean Corpuscular Volume 90.6 80-100 fL Mean Corpuscular Hemoglobin 32.0 25-34 pg Mean Corpuscular Hemoglobin Concent 35.4 32-36 g/dl RDW Standard Deviation 49.0 36.4-46.3 fL RDW Coefficient of Variation 14.7 11.5-14.5 % Platelet Count 249 130-400 K/uL Mean Platelet Volume 9.3 7.4-10.4 fL Sodium Level 142 136-145 mmol/L Potassium Level 3.9 3.5-5.1 mmol/L Chloride Level 107 98-107 mmol/L Carbon Dioxide Level 29 21-32 mmol/L Anion Gap 6.0 3-11 mmol/L Blood Urea Nitrogen 8 7-18 mg/dl Creatinine 0.81 0.60-1.40 mg/dl Est Creatinine Clear Calc Drug Dose 71.6 ml/min Estimated GFR () 96.6 Estimated GFR (Non- 83.4 BUN/Creatinine Ratio 9.8 10-20 Random Glucose 173 70-99 mg/dl Calcium Level 7.8 8.5-10.1 mg/dl Phosphorus Level 2.3 2.5-4.9 mg/dl Magnesium Level 2.1 1.8-2.4 mg/dl Total Bilirubin 0.6 0.2-1 mg/dl Direct Bilirubin 0.3 0-0.2 mg/dl Aspartate Amino Transf (AST/SGOT) 23 15-37 U/L Alanine Aminotransferase (ALT/SGPT) 100 12-78 U/L Alkaline Phosphatase 176 45-117 U/L Total Protein 5.6 6.4-8.2 gm/dl Albumin 1.9 3.4-5.0 gm/dl Globulin 3.7 2.5-4.0 gm/dl Albumin/Globulin Ratio 0.5 0.9-2 Assessment & Plan 12/20/16- s/p lap angela- severe necrotizing disease- much purulence- gangrenous gallbladder- d/c swain, decrease IV, mobilize- cont IV atbx to regular floor when ok with med team some concern for ileus- colonic distention noted at operation 12/19/16- discussed lap angela, possible cholangiogram, possible open operation with pt, including risks of bleeding, infection, bowel/ bile duct injury with leakage- he wishes to proceed 12/19/16- discussed lap angela, possible cholangiogram, possible open operation with pt, including risks of bleeding, infection, bowel/ bile duct injury with leakage- he wishes to proceed
--- NOTE | 2016-12-20 07:43 | Anesthesiology Progress Note ---
Anesthesia Post Op Note Date & Time Dec 20, 2016 at 07:43 Vital Signs Pain Intensity: 0.0 Vital Signs Past 12 Hours Date Time Temp Pulse Resp B/P Pulse Ox O2 Delivery O2 Flow Rate FiO2 12/20/16 04:00 97 Nasal Cannula 2.0 12/20/16 02:38 36.5 121 25 133/85 97 Nasal Cannula 2.0 12/20/16 00:01 97 Nasal Cannula 2.0 12/19/16 23:18 36.7 103 21 114/77 97 Nasal Cannula 2.0 12/19/16 20:10 36.6 123 23 127/97 97 Nasal Cannula 2.0 12/19/16 20:00 97 Nasal Cannula 2.0 Notes Mental Status: alert / awake / arousable, participated in evaluation Pt Amnestic to Procedure: Yes Nausea / Vomiting: adequately controlled Pain: adequately controlled Airway Patency, RR, SpO2: stable & adequate BP & HR: stable & adequate Hydration State: stable & adequate Anesthetic Complications: no major complications apparent
[2016-12-20] MEDS: CIPROFLOXACIN / D5W 400 MG in PREMIXED IN D5W 200 ML IV SCH ×2 (07:56→21:00)
[2016-12-20] MEDS: DOCUSATE SODIUM/SENNA 50/8.6MG TAB PO SCH ×2 (07:57→21:01)
[2016-12-20] MEDS: PANTOprazole SOD 40 MG TAB PO SCH (07:58)
[2016-12-20] MEDS: MAGNESIUM HYDROXIDE SUSP 30 ML UDC PO SCH ×2 (07:58→21:01)
[2016-12-20] MEDS: HEPARIN SOD 5000 UNIT/0.5 ML CARP SQ SCH ×2 (08:02→21:02)
--- NOTE | 2016-12-20 10:01 | CARDIOLOGY PROGRESS NOTE ---
DATE: 12/20/2016 HISTORY OF PRESENT ILLNESS: This morning Mr. Rowe is currently feeling well. He has minimal abdominal discomfort and all he notes is a mild bloating in his abdomen. He is tolerating a diet this morning. He is not aware of his heart rate. He denies any significant breathing difficulty or chest pain. PHYSICAL EXAMINATION: GENERAL: On physical examination, he is alert and oriented. His mood and affect appear normal. He answers all questions appropriately. CURRENT VITAL SIGNS: Include blood pressure 126/104 with a pulse of 111. HEENT: His sclerae are anicteric. LUNGS: Auscultation of both lungs revealed occasional crackles at the bases, but overall good air movement with no expiratory wheezing. CARDIAC: His rhythm has been an irregularly irregular rhythm. LABORATORY DATA: Studies obtained today include a white cell count of 12.5, hemoglobin of 13, and a platelet count of 249. Sodium is 142, potassium is 3.9, BUN was 8, and creatinine was 0.81. REVIEW OF DATA: Telemetry reveals persistent atrial fibrillation with rapid ventricular rate. ASSESSMENT AND PLAN: Persistent atrial fibrillation: The patient appears to be tolerating arrhythmia well. He is hemodynamically stable. We gave him a several dose of medications yesterday in the perioperative period, but he is currently taking his oral diltiazem again this morning. Given how well he tolerates the rhythm problem, I think it would be reasonable to continue oral diltiazem over the course of the day and monitor his response. It is also likely that he has higher heart rate in the immediate perioperative period due to some fluid shifts and possibly abdominal discomfort. He is likely to have higher rates as he ambulated today as well. I think it is reasonable to simply monitor this provided he otherwise feels good and we will get a better sense of the overall affective dose of diltiazem in the next 24 hours. We respect to his anticoagulation, we will discuss with the surgeons optimal timing for initiation of anticoagulation. The patient is a good candidate for cardioversion in several weeks if he does not convert spontaneously in that timeframe.
[2016-12-20] MEDS: LEVOTHYROXINE SODIUM INJ 50 MCG in SYRINGE 0 ML IV SCH (10:13)
--- NOTE | 2016-12-20 13:37 | Progress Note ---
Subjective Date of Service: Dec 20, 2016. Subjective Pt evaluation today including: conversation w/ patient, conversation w/ family , physical exam, lab review, review of studies, conversation w/ risk management consultant, review of inpatient medication list Pain: mild RUQ pain, post op pain, better than before PO Intake: tolerating clear liquids Voiding: swain catheter in place patient with some RUQ pain but otherwise he is doing quite well after surgery no vomiting, tolerating liquid diet, no BM or flatus yet sitting up in chair does have pain with deep inspiration or cough, encouraged him to use pain medications if needed updated family at bedside about plan Review of Systems Respiratory: + cough Abdomen: + constipation, + pain (RUQ) All Other Systems: Reviewed and Negative Medications Current Inpatient Medications Medications (Trade) Dose Ordered Sig/Melanie Route Start Time Stop Time Status Last Admin Dose Admin Ioversol 125 ml 125 ml UD PRN IV 12/16/16 14:00 12/20/16 13:59 Ciprofloxacin/ Dextrose 400 mg/ Prmx 200 ml @ 100 mls/hr Q12H IV 12/16/16 20:00 12/29/16 19:59 12/20/16 07:56 100 MLS/HR Metronidazole/Prmx (Flagyl / Nss/ Premixed Nss) 100 ml @ 100 mls/hr Q8H IV 12/16/16 20:00 12/29/16 19:59 12/20/16 12:26 100 MLS/HR Acetaminophen (Tylenol Tab) 650 mg Q4H PRN PO 12/16/16 15:45 01/15/17 15:44 12/16/16 19:42 650 MG Ondansetron HCl (Zofran Inj) 4 mg Q6H PRN IV 12/16/16 15:45 01/15/17 15:44 Polyethylene (Miralax Powder Packet) 17 gm DAILY PRN PO 12/16/16 15:45 01/15/17 15:44 Pantoprazole Sodium 40 mg 40 mg QAM PO 12/17/16 09:00 01/16/17 08:59 12/20/16 07:58 40 MG Levothyroxine Sodium/Syringe (Synthroid Inj/ Syringe) 2.5 ml @ 2 mls/min DAILY@09 IV 12/18/16 09:00 01/17/17 08:59 12/20/16 10:13 2 MLS/MIN Diltiazem HCl (Cardizem Tab) 60 mg Q6 PO 12/18/16 12:00 01/17/17 11:59 12/20/16 07:58 60 MG Hydromorphone HCl (Dilaudid Inj) 0.5 mg Q3H PRN IV 12/19/16 09:00 01/02/17 08:59 Hydromorphone HCl (Dilaudid Inj) 1 mg Q3H PRN IV 12/19/16 09:00 01/02/17 08:59 Heparin Sodium (Porcine) (Heparin Sq 5000 Unit/0.5ml) 5,000 unit Q12H SQ 12/20/16 09:00 01/19/17 08:59 12/20/16 08:02 5,000 UNIT Magnesium Hydroxide (Milk Of Magnesia Susp) 30 ml BID PO 12/19/16 21:00 01/18/17 20:59 12/20/16 07:58 30 ML Senna/Docusate Sodium 1 tab 1 tab BID PO 12/19/16 21:00 01/18/17 20:59 12/20/16 07:57 1 TAB Promethazine HCl 25 mg/Sodium Chloride 51 ml @ 204 mls/hr Q6H PRN IV 12/19/16 09:00 01/18/17 08:59 Lactated Ringer's 1,000 ml @ 75 mls/hr [id number] IV 12/19/16 09:15 01/18/17 09:14 12/20/16 04:27 100 MLS/HR Promethazine HCl/ Sodium Chloride (Phenergan Inj/ Nss 50ml) 50.5 ml @ 202 mls/hr Q6H PRN IV 12/19/16 09:30 01/18/17 09:29 Objective Vital Signs Date Time Temp Pulse Resp B/P Pulse Ox O2 Delivery O2 Flow Rate FiO2 12/20/16 12:00 Room Air 12/20/16 11:55 36.6 105 16 115/72 96 Room Air 12/20/16 08:19 36.7 111 24 128/104 95 Room Air 12/20/16 08:00 Room Air 12/20/16 04:00 97 Nasal Cannula 2.0 12/20/16 02:38 36.5 121 25 133/85 97 Nasal Cannula 2.0 12/20/16 00:01 97 Nasal Cannula 2.0 12/19/16 23:18 36.7 103 21 114/77 97 Nasal Cannula 2.0 12/19/16 20:10 36.6 123 23 127/97 97 Nasal Cannula 2.0 12/19/16 20:00 97 Nasal Cannula 2.0 12/19/16 16:00 95 Nasal Cannula 2.0 12/19/16 15:36 36.5 105 20 133/86 94 Nasal Cannula 2.0 12/19/16 14:19 116 22 103/65 96 Nasal Cannula 2.0 Physical Exam General Appearance: WD/WN, no apparent distress Eyes: normal inspection, EOMI, sclerae normal ENT: normal ENT inspection, hearing grossly normal, pharynx normal Neck: supple, no adenopathy, no JVD, trachea midline Respiratory/Chest: chest non-tender, lungs clear, normal breath sounds, no respiratory distress, no accessory muscle use Cardiovascular: no edema, no gallop, no JVD, no murmur, + tachycardia, + irregularly irregular Abdomen: soft, no organomegaly, + abnormal bowel sounds (hypoactive), + tenderness (RUQ) Extremities: normal range of motion, non-tender, normal inspection, no pedal edema, no calf tenderness 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, no motor/sensory deficits, alert, normal mood/affect, oriented x 3 Skin: normal color, warm/dry, no rash Lymphatic: no adenopathy Laboratory Results Last 24 Hours Test 12/19/16 15:12 12/20/16 05:27 Hemoglobin 14.3 g/dL 13.9 g/dL Hematocrit 41.0 % 39.3 % White Blood Count 12.55 K/uL Red Blood Count 4.34 M/uL Mean Corpuscular Volume 90.6 fL Mean Corpuscular Hemoglobin 32.0 pg Mean Corpuscular Hemoglobin Concent 35.4 g/dl RDW Standard Deviation 49.0 fL RDW Coefficient of Variation 14.7 % Platelet Count 249 K/uL Mean Platelet Volume 9.3 fL Sodium Level 142 mmol/L Potassium Level 3.9 mmol/L Chloride Level 107 mmol/L Carbon Dioxide Level 29 mmol/L Anion Gap 6.0 mmol/L Blood Urea Nitrogen 8 mg/dl Creatinine 0.81 mg/dl Est Creatinine Clear Calc Drug Dose 71.6 ml/min Estimated GFR () 96.6 Estimated GFR (Non- 83.4 BUN/Creatinine Ratio 9.8 Random Glucose 173 mg/dl Calcium Level 7.8 mg/dl Phosphorus Level 2.3 mg/dl Magnesium Level 2.1 mg/dl Total Bilirubin 0.6 mg/dl Direct Bilirubin 0.3 mg/dl Aspartate Amino Transf (AST/SGOT) 23 U/L Alanine Aminotransferase (ALT/SGPT) 100 U/L Alkaline Phosphatase 176 U/L Total Protein 5.6 gm/dl Albumin 1.9 gm/dl Globulin 3.7 gm/dl Albumin/Globulin Ratio 0.5 Assessment and Plan This is an 81yo M with past medical history of hypothyroidism, BPH, vitamin B deficiency, who presents after approximately 5 days of abdominal pain in RUQ with fevers and chills, found to have severe acute cholecystitis, acute pancreatitis, possible choledocholithiasis, and new onset rapid atrial fibrillation. 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 fib with RVR-new onset, asymptomatic rates in 100-110's at rest this AM on Diltiazem 60mg PO q6 d/w cardiology, no planned changes to medications today, give HR time to come down will need to discuss anticoagulation once okay with surgery, Coumadin vs novel anticoagulant? echo: normal LV function, LA dilated, mild MR Hypothyroidism-TSH normal in 09/2016, now with rapid a-fib. TSH normal at 1.49 - Continue levothyroxine PO BPH- RN reports urinating 100 mL at a time, frequently. Not on any medication, newly diagnosed - swain placed for surgery, will d/c and monitor UO Vitamin B deficiency-B12 level 700 in 09/2016, stable -restart po B12 at discharge DVT prophylaxis: Teds, SCDs, out of bed GI Proph- PPI CODE STATUS: full code Disposition: Patient is from home, will need PT OT eval, discharge when medically stable, most likely back home keep on tele today due to tachycardia and possible need for IV rate control
[2016-12-20] MEDS ORDERED: DILTIAZEM HCL 5 MG/ML 5 ML VIAL IV STA (22:38)
[2016-12-20] MEDS ORDERED: NURSING VERBAL MED ORDER ONE (22:45)
[2016-12-21] VITALS (10 sets, daily range): BP systolic 110–150; BP diastolic 57–89; PULSE 65–134; TEMP 35.5–36.9; O2SAT 83–97
[2016-12-21] MEDS: METRONIDAZOLE / NSS 500 MG in PREMIXED NSS 100 ML IV SCH ×3 (04:37→20:21)
[2016-12-21] MEDS: DILTIAZEM HCL 60 MG TAB PO SCH ×4 (05:58→20:23)
--- NOTE | 2016-12-21 06:42 | Surgery Progress Note ---
Surgery Progress Note Date of Service Dec 21, 2016. Subjective No nausea, No vomiting minimal bowel movements yet- some flatus, no N/V afeb- looks ok, drain- serous Objective Vital Signs: Date Time Temp Pulse Resp B/P Pulse Ox O2 Delivery O2 Flow Rate FiO2 12/21/16 04:00 95 Room Air 12/21/16 03:48 36.7 121 19 120/75 95 Room Air 12/21/16 00:01 94 Room Air 12/20/16 23:47 36.7 123 20 131/88 94 Room Air 12/20/16 22:53 126 20 122/82 12/20/16 20:00 99 Room Air 12/20/16 19:28 36.8 72 18 129/79 99 12/20/16 16:00 Room Air 12/20/16 15:40 36.5 102 18 108/63 97 12/20/16 12:00 Room Air 12/20/16 11:55 36.6 105 16 115/72 96 Room Air 12/20/16 08:19 36.7 111 24 128/104 95 Room Air 12/20/16 08:00 Room Air General Appearance: no apparent distress Respiratory/Chest: no respiratory distress Abdomen: + distended (has bowel sounds) Incision(s): intact Laboratory Results: Results Past 24 Hours Test 12/21/16 05:24 Range/Units Assessment & Plan 12/21/16- abd distention/ ileus not unexpected- monitor, cont atbx IV begin coumadin per medical team, no Lovenox, can use Heparin if needed. await return of bowel function 12/20/16- s/p lap angela- severe necrotizing disease- much purulence- gangrenous gallbladder- d/c swain, decrease IV, mobilize- cont IV atbx to regular floor when ok with med team some concern for ileus- colonic distention noted at operation 12/19/16- discussed lap angela, possible cholangiogram, possible open operation with pt, including risks of bleeding, infection, bowel/ bile duct injury with leakage- he wishes to proceed 12/20/16- s/p lap angela- severe necrotizing disease- much purulence- gangrenous gallbladder- d/c swain, decrease IV, mobilize- cont IV atbx to regular floor when ok with med team some concern for ileus- colonic distention noted at operation 12/19/16- discussed lap angela, possible cholangiogram, possible open operation with pt, including risks of bleeding, infection, bowel/ bile duct injury with leakage- he wishes to proceed
[2016-12-21 07:35] LABS: BUN/CREATININE RATIO 11.7 (10-20); CALCIUM 7.9 mg/dl (8.5-10.1); CREATININE 0.85 mg/dl (0.60-1.40); MAGNESIUM 2.4 mg/dl (1.8-2.4); POTASSIUM 3.9 mmol/L (3.5-5.1)
[2016-12-21 07:41] LABS: PHOSPHORUS 1.6 mg/dl (2.5-4.9)
[2016-12-21] MEDS ORDERED: POTASSIUM PHOS 3 MMOL/1 ML INFUSION IV STA (07:49)
[2016-12-21] MEDS ORDERED: SODIUM PHOSPHATE 3 MMOL/1 ML INFUSION IV STA (07:56)
[2016-12-21] MEDS ORDERED: POTASSIUM PHOSPHATE INJ 24 MMOL in SODIUM CHLORIDE 0.9% 500ML 500 ML IV SCH (08:15)
[2016-12-21] MEDS: POT PHOSPHATE MONOBASIC W/ SOD TAB PO SCH ×2 (08:25→20:22)
[2016-12-21] MEDS: LACTATED RINGER'S 1000ML 1,000 ML IV SCH ×2 (08:26→08:31)
[2016-12-21] MEDS: CIPROFLOXACIN / D5W 400 MG in PREMIXED IN D5W 200 ML IV SCH ×2 (08:26→20:21)
[2016-12-21] MEDS: PANTOprazole SOD 40 MG TAB PO SCH (08:30)
[2016-12-21] MEDS: MAGNESIUM HYDROXIDE SUSP 30 ML UDC PO SCH ×2 (08:30→20:22)
[2016-12-21] MEDS: DOCUSATE SODIUM/SENNA 50/8.6MG TAB PO SCH ×2 (08:30→20:22)
--- NOTE | 2016-12-21 09:16 | CARDIOLOGY PROGRESS NOTE ---
DATE: 12/21/2016 DATE: 12/21/2016. SUBJECTIVE: This morning Mr. Rowe claims to be feeling well. He still has an element of abdominal bloating but does not report any abdominal pain. He reports being out of bed yesterday and minimally ambulatory without symptoms of dizziness, lightheadedness or dyspnea. He has symptoms of chest pain. He does not appear to be aware of rapid heartbeat outside of that reported to him by the nurses. PHYSICAL EXAMINATION: GENERAL: On physical examination, he was alert and oriented. His mood and affect appeared normal. He answered all questions appropriately. CURRENT VITAL SIGNS: Include blood pressure 114/88 with a pulse of 134. LUNGS: Auscultation of his lung apices revealed them to be clear. He has relatively good air movement with no rales. CARDIAC EXAMINATION: Reveals him to be an irregular irregular rhythm without murmur. LABORATORY DATA: Studies obtained today included a sodium of 141, potassium of 3.9, BUN was 10, and creatinine was 0.8. IMPRESSION AND PLAN: Atrial fibrillation. The patient continues to have rapid ventricular rates but feels quite good. He has no evidence of hemodynamic embarrassment or symptoms. He appears to have been getting his Diltiazem quite regularly over the past several days and initially had a favorable response but now does not appear to have adequate control on single agent. I think it is reasonable to institute low dose metoprolol therapy today in hopes that 2 agents will do a better job of controlling his heart rate. I think also as his abdominal condition improves and his volume status normalizes he will likely have better control of his heart rate. Appreciate Dr. Xie's notes regarding anticoagulation which has been initiated by Dr. Berry. I think once the patient has been adequately anticoagulated for a month will proceed with cardioversion as an outpatient.
[2016-12-21] MEDS: METOPROLOL TARTRATE 25 MG TAB PO SCH ×3 (09:31→20:22)
[2016-12-21] MEDS: LEVOTHYROXINE SODIUM INJ 50 MCG in SYRINGE 0 ML IV SCH (09:31)
[2016-12-21 09:39] LABS: BASO % 0.1 %; BASO ABS # 0.01 K/uL (0-0.2); EOS % 1.1 %; HEMATOCRIT 44.2 % (42-52); IG% 1.2 %; LYMPH % 6.9 %; LYMPH ABS # 0.81 K/uL (1.2-3.4); MEAN CELL VOLUME 94.2 fL (80-100); MEAN CORPUSCULAR HEMOGLOBIN 32.4 pg (25-34); MEAN PLATELET VOLUME 9.8 fL (7.4-10.4); MONO % 5.7 %; PLATELET COUNT 348 K/uL (130-400); RED BLOOD COUNT 4.69 M/uL (4.7-6.1); WHITE BLOOD COUNT 11.67 K/uL (4.8-10.8)
[2016-12-21 09:48] LABS: INR 1.1 (0.9-1.1); PARTIAL THROMBOPLASTIN RATIO 1.1; PROTHROMBIN TIME (PATIENT) 12.3 SECONDS (9.0-12.0)
[2016-12-21] MEDS: HEPARIN 25,000 UNIT/500ML D5W 500 ML IV PRN ×3 (09:59→22:33)
[2016-12-21 10:50] LABS: COMPLETE YES; MEAN CORPUSCULAR HGB CONC 34.4 g/dl (32-36)
[2016-12-21 14:46] LABS: PARTIAL THROMBOPLASTIN RATIO 1.7
--- NOTE | 2016-12-21 14:56 | Progress Note ---
Subjective Date of Service: Dec 21, 2016. Subjective Pt evaluation today including: conversation w/ patient, physical exam, lab review, conversation w/ pmo consultant, review of inpatient medication list Pain: mild RUQ pain PO Intake: tolerating liquids Voiding: no voiding problems patient feeling well, sitting up in chair, mild pain, tolerating clears his HR continues to be in 120-130's but he is asymptomatic appreciate notes from surgery and cardiology ok for anticoagulation Lopressor 12.5mg TID initiated updated patient's at the bedside Review of Systems Abdomen: + pain (mild RUQ) All Other Systems: Reviewed and Negative Medications Current Inpatient Medications Medications (Trade) Dose Ordered Sig/Melanie Route Start Time Stop Time Status Last Admin Dose Admin Ciprofloxacin/ Dextrose 400 mg/ Prmx 200 ml @ 100 mls/hr Q12H IV 12/16/16 20:00 12/29/16 19:59 12/21/16 08:26 100 MLS/HR Metronidazole/Prmx (Flagyl / Nss/ Premixed Nss) 100 ml @ 100 mls/hr Q8H IV 12/16/16 20:00 12/29/16 19:59 12/21/16 12:24 100 MLS/HR Acetaminophen (Tylenol Tab) 650 mg Q4H PRN PO 12/16/16 15:45 01/15/17 15:44 12/16/16 19:42 650 MG Ondansetron HCl (Zofran Inj) 4 mg Q6H PRN IV 12/16/16 15:45 01/15/17 15:44 Polyethylene (Miralax Powder Packet) 17 gm DAILY PRN PO 12/16/16 15:45 01/15/17 15:44 Pantoprazole Sodium 40 mg 40 mg QAM PO 12/17/16 09:00 01/16/17 08:59 12/21/16 08:30 40 MG Levothyroxine Sodium/Syringe (Synthroid Inj/ Syringe) 2.5 ml @ 2 mls/min DAILY@09 IV 12/18/16 09:00 01/17/17 08:59 12/21/16 09:31 2 MLS/MIN Diltiazem HCl (Cardizem Tab) 60 mg Q6 PO 12/18/16 12:00 01/17/17 11:59 12/21/16 08:31 60 MG Hydromorphone HCl (Dilaudid Inj) 0.5 mg Q3H PRN IV 12/19/16 09:00 01/02/17 08:59 Hydromorphone HCl (Dilaudid Inj) 1 mg Q3H PRN IV 12/19/16 09:00 01/02/17 08:59 Magnesium Hydroxide (Milk Of Magnesia Susp) 30 ml BID PO 12/19/16 21:00 01/18/17 20:59 12/21/16 08:30 30 ML Senna/Docusate Sodium 1 tab 1 tab BID PO 12/19/16 21:00 01/18/17 20:59 12/21/16 08:30 1 TAB Promethazine HCl 25 mg/Sodium Chloride 51 ml @ 204 mls/hr Q6H PRN IV 12/19/16 09:00 01/18/17 08:59 Lactated Ringer's 1,000 ml @ 50 mls/hr Q20H IV 12/19/16 09:15 01/18/17 09:14 12/21/16 08:31 50 MLS/HR Promethazine HCl/ Sodium Chloride (Phenergan Inj/ Nss 50ml) 50.5 ml @ 202 mls/hr Q6H PRN IV 12/19/16 09:30 01/18/17 09:29 Potassium/ Phosphorus/Sodium (Phospha 250 Neutral 155-852-130 Mg) 1 tab BID PO 12/21/16 09:00 01/20/17 08:59 12/21/16 08:25 1 TAB Warfarin Sodium (Coumadin Tab) 7.5 mg DAILY@16 PO 12/21/16 16:00 12/21/16 16:01 Metoprolol Tartrate 12.5 mg 12.5 mg TID PO 12/21/16 09:00 01/20/17 08:59 12/21/16 14:26 12.5 MG Heparin Sodium/ Dextrose (Heparin 25,000 Unit/500ml D5W) 500 ml @ 27 mls/hr [id number] PRN IV 12/21/16 09:15 01/20/17 09:14 12/21/16 09:59 27 MLS/HR Objective Vital Signs Date Time Temp Pulse Resp B/P Pulse Ox O2 Delivery O2 Flow Rate FiO2 12/21/16 12:00 Room Air 12/21/16 11:25 36.7 83 16 115/68 95 Room Air 12/21/16 08:00 Room Air 12/21/16 07:50 36.4 134 18 114/88 94 Room Air 12/21/16 04:00 95 Room Air 12/21/16 03:48 36.7 121 19 120/75 95 Room Air 12/21/16 00:01 94 Room Air 12/20/16 23:47 36.7 123 20 131/88 94 Room Air 12/20/16 22:53 126 20 122/82 12/20/16 20:00 99 Room Air 12/20/16 19:28 36.8 72 18 129/79 99 12/20/16 16:00 Room Air 12/20/16 15:40 36.5 102 18 108/63 97 Physical Exam General Appearance: WD/WN, no apparent distress Eyes: normal inspection, EOMI, sclerae normal ENT: normal ENT inspection, hearing grossly normal, pharynx normal Neck: supple, no adenopathy, no JVD, trachea midline Respiratory/Chest: chest non-tender, lungs clear, normal breath sounds, no respiratory distress, no accessory muscle use Cardiovascular: no edema, no gallop, no JVD, no murmur, + tachycardia, + irregularly irregular Abdomen: normal bowel sounds, soft, no organomegaly, + tenderness (mild RUQ) Extremities: normal range of motion, non-tender, normal inspection, no pedal edema, no calf tenderness 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, no motor/sensory deficits, alert, normal mood/affect, oriented x 3 Skin: normal color, warm/dry, no rash Lymphatic: no adenopathy Laboratory Results Last 24 Hours Test 12/21/16 06:34 12/21/16 09:18 12/21/16 14:18 Sodium Level 141 mmol/L Potassium Level 3.9 mmol/L Chloride Level 105 mmol/L Carbon Dioxide Level 30 mmol/L Anion Gap 6.0 mmol/L Blood Urea Nitrogen 10 mg/dl Creatinine 0.85 mg/dl Est Creatinine Clear Calc Drug Dose 68.2 ml/min Estimated GFR () 94.7 Estimated GFR (Non- 81.7 BUN/Creatinine Ratio 11.7 Random Glucose 106 mg/dl Calcium Level 7.9 mg/dl Phosphorus Level 1.6 mg/dl Magnesium Level 2.4 mg/dl White Blood Count 11.67 K/uL Red Blood Count 4.69 M/uL Hemoglobin 15.2 g/dL Hematocrit 44.2 % Mean Corpuscular Volume 94.2 fL Mean Corpuscular Hemoglobin 32.4 pg Mean Corpuscular Hemoglobin Concent 34.4 g/dl Platelet Count 348 K/uL Mean Platelet Volume 9.8 fL Neutrophils (%) (Auto) 85.0 % Lymphocytes (%) (Auto) 6.9 % Monocytes (%) (Auto) 5.7 % Eosinophils (%) (Auto) 1.1 % Basophils (%) (Auto) 0.1 % Neutrophils # (Auto) 9.91 K/uL Lymphocytes # (Auto) 0.81 K/uL Monocytes # (Auto) 0.67 K/uL Eosinophils # (Auto) 0.13 K/uL Basophils # (Auto) 0.01 K/uL RDW Standard Deviation 51.2 fL RDW Coefficient of Variation 14.9 % Immature Granulocyte % (Auto) 1.2 % Immature Granulocyte # (Auto) 0.14 K/uL Prothrombin Time 12.3 SECONDS Prothromb Time International Ratio 1.1 Activated Partial Thromboplast Time 28.4 SECONDS 44.3 SECONDS Partial Thromboplastin Ratio 1.1 1.7 Assessment and Plan This is an 81yo M with past medical history of hypothyroidism, BPH, vitamin B deficiency, who presents after approximately 5 days of abdominal pain in RU with fevers and chills, found to have severe acute cholecystitis, acute pancreatitis, possible choledocholithiasis, and new onset rapid atrial fibrillation. 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 fib with RVR-new onset, asymptomatic rates in 120's at rest this AM on Diltiazem 60mg PO q6 metoprolol 12.5mg TID added by cardiology, look for improved rate control started on heparin gtt this AM, Coumadin 7.5mg this afternoon, plan for 5mg tomorrow, follow INR echo: normal LV function, LA dilated, mild MR ultimately cardiology plans for cardioversion in a few weeks Hypothyroidism-TSH normal in 09/2016, now with rapid a-fib. TSH normal at 1.49 - Continue levothyroxine PO BPH- urinating well since swain d/c, no reported problems, continue to monitor Vitamin B deficiency-B12 level 700 in 09/2016, stable -restart po B12 at discharge DVT prophylaxis: Teds, SCDs, out of bed GI Proph- PPI CODE STATUS: full code Disposition: Patient is from home, will need PT OT eval, discharge when medically stable, most likely back home keep on tele today due to tachycardia
[2016-12-21] MEDS ORDERED: HEPARIN IV BOLUS 3,000 UNIT in SYRINGE 0 ML IV ONE (15:30)
[2016-12-21] MEDS ORDERED: WARFARIN SOD 7.5 MG TAB PO SCH (16:00)
[2016-12-22] VITALS (11 sets, daily range): BP systolic 115–147; BP diastolic 50–82; PULSE 61–93; TEMP 36.3–36.9; O2SAT 93–97
[2016-12-22] MEDS: LACTATED RINGER'S 1000ML 1,000 ML IV SCH (02:41)
[2016-12-22] MEDS: METRONIDAZOLE / NSS 500 MG in PREMIXED NSS 100 ML IV SCH ×3 (02:42→20:16)
[2016-12-22 04:44] LABS: HEMATOCRIT 40.1 % (42-52); MEAN CELL VOLUME 93.7 fL (80-100); MEAN CORPUSCULAR HEMOGLOBIN 31.3 pg (25-34); MEAN CORPUSCULAR HGB CONC 33.4 g/dl (32-36); MEAN PLATELET VOLUME 9.9 fL (7.4-10.4); PLATELET COUNT 290 K/uL (130-400); RED BLOOD COUNT 4.28 M/uL (4.7-6.1); WHITE BLOOD COUNT 8.99 K/uL (4.8-10.8)
[2016-12-22 05:04] LABS: INR 1.2 (0.9-1.1); PARTIAL THROMBOPLASTIN RATIO 2.5; PROTHROMBIN TIME (PATIENT) 13.1 SECONDS (9.0-12.0)
[2016-12-22] MEDS: HEPARIN 25,000 UNIT/500ML D5W 500 ML IV PRN ×4 (05:33→22:57)
[2016-12-22] MEDS: DILTIAZEM HCL 60 MG TAB PO SCH ×3 (05:46→17:57)
[2016-12-22] MEDS: PANTOprazole SOD 40 MG TAB PO SCH (07:30)
[2016-12-22] MEDS: CIPROFLOXACIN / D5W 400 MG in PREMIXED IN D5W 200 ML IV SCH ×2 (07:30→20:16)
[2016-12-22] MEDS: POT PHOSPHATE MONOBASIC W/ SOD TAB PO SCH ×2 (07:31→21:22)
[2016-12-22] MEDS: METOPROLOL TARTRATE 25 MG TAB PO SCH ×3 (07:31→21:23)
[2016-12-22] MEDS: DOCUSATE SODIUM/SENNA 50/8.6MG TAB PO SCH ×2 (07:32→21:00)
[2016-12-22] MEDS: MAGNESIUM HYDROXIDE SUSP 30 ML UDC PO SCH ×2 (07:32→21:22)
[2016-12-22] MEDS: LEVOTHYROXINE SODIUM INJ 50 MCG in SYRINGE 0 ML IV SCH (09:13)
[2016-12-22] MEDS ORDERED: CIPR-255 PO (10:56)
[2016-12-22] MEDS ORDERED: METR-163 PO (10:56)
[2016-12-22] MEDS ORDERED: HYDR-5688 PO (10:56)
--- NOTE | 2016-12-22 10:58 | Discharge Instructions ---
Discharge Instructions Date of Service Dec 22, 2016. Admission Reason for Admission: Acute Cholecystitis, Atrial Fibrilation With Rvr Discharge Discharge Diagnosis / Problem: gangrenous cholecystitis Discharge Goals Goal(s): Decrease discomfort, Improve function, Improve disease control Activity Recommendations Activity Limitations: as noted below Lifting Limitations: no more than 10 pounds Exercise/Sports Limitations: until after follow-up appointment May Resume Sexual Activity: when tolerated Shower/Bathe: tomorrow Driving or Machine Use: 1 week SPECIAL CARE INSTRUCTIONS: * Cover incisions and change daily for comfort/drainage. * Empty drain 2-3 times per day and record. * May use ibuprofen for pain as tolerated. * Expect some swelling and bruising. Call your doctor if: * Temperature above 101 degrees * Pain not relieved by pain medicine ordered * There is increased drainage or redness from any incision * You have any unanswered questions or concerns [phone]. FOLLOW UP VISIT: If not already scheduled, please call the office for a follow-up visit. for Mon- for drain removal and check up OFFICE PHONE NUMBER: Dr. Xie Office . Current Hospital Diet Patient's current hospital diet: Low Fiber Diet Discharge Diet Recommended Diet: Regular Diet Procedures Procedures Performed: Laparoscopic Cholecystectomy Pending Studies Studies pending at discharge: no Medical Emergencies . Who to Call and When: Medical Emergencies: If at any time you feel your situation is an emergency, please call 911 immediately. . Non-Emergent Contact Non-Emergency issues call your: Primary Care Provider, Surgeon . "Provider Documentation" section prepared by Robles Xie. VTE Core Measure Inpt VTE Proph given/why not?: Unfractionated heparin SQ, Warfarin (Coumadin), T.E.D. Stockings, SCD's
--- NOTE | 2016-12-22 11:14 | Surgery Progress Note ---
Surgery Progress Note Date of Service Dec 22, 2016. Subjective + feeling well tolerating diet Objective Vital Signs: Date Time Temp Pulse Resp B/P Pulse Ox O2 Delivery O2 Flow Rate FiO2 12/22/16 08:00 95 Room Air 12/22/16 07:46 36.8 70 20 147/50 95 Room Air 12/22/16 04:00 Room Air Venturi Mask 12/22/16 03:35 36.3 93 19 132/82 97 Room Air 12/21/16 23:59 Room Air Venturi Mask 12/21/16 23:30 36.6 65 18 121/75 95 Room Air 12/21/16 20:00 Room Air Venturi Mask 12/21/16 19:00 36.8 75 18 150/89 96 12/21/16 16:00 Room Air 12/21/16 15:49 36.9 96 18 124/74 95 12/21/16 12:00 Room Air 12/21/16 11:25 36.7 83 16 115/68 95 Room Air General Appearance: no apparent distress Respiratory/Chest: no respiratory distress Abdomen: + distended (softer) Laboratory Results: Results Past 24 Hours Test 12/21/16 14:18 12/21/16 21:02 12/22/16 04:25 Range/Units Activated Partial Thromboplast Time 44.3 77.6 66.0 21.0-31.0 SECONDS Partial Thromboplastin Ratio 1.7 3.0 2.5 White Blood Count 8.99 4.8-10.8 K/uL Red Blood Count 4.28 4.7-6.1 M/uL Hemoglobin 13.4 14.0-18.0 g/dL Hematocrit 40.1 42-52 % Mean Corpuscular Volume 93.7 80-100 fL Mean Corpuscular Hemoglobin 31.3 25-34 pg Mean Corpuscular Hemoglobin Concent 33.4 32-36 g/dl RDW Standard Deviation 50.6 36.4-46.3 fL RDW Coefficient of Variation 14.8 11.5-14.5 % Platelet Count 290 130-400 K/uL Mean Platelet Volume 9.9 7.4-10.4 fL Prothrombin Time 13.1 9.0-12.0 SECONDS Prothromb Time International Ratio 1.2 0.9-1.1 Assessment & Plan 12/22/16- progressing well- d/c with drain when ok with med team- scripts for pain med, atbx in chart- instr in record cont to follow 12/21/16- abd distention/ ileus not unexpected- monitor, cont atbx IV begin coumadin per medical team, no Lovenox, can use Heparin if needed. await return of bowel function 12/20/16- s/p lap angela- severe necrotizing disease- much purulence- gangrenous gallbladder- d/c swain, decrease IV, mobilize- cont IV atbx to regular floor when ok with med team some concern for ileus- colonic distention noted at operation 12/19/16- discussed lap angela, possible cholangiogram, possible open operation with pt, including risks of bleeding, infection, bowel/ bile duct injury with leakage- he wishes to proceed 12/21/16- abd distention/ ileus not unexpected- monitor, cont atbx IV begin coumadin per medical team, no Lovenox, can use Heparin if needed. await return of bowel function 12/20/16- s/p lap angela- severe necrotizing disease- much purulence- gangrenous gallbladder- d/c swain, decrease IV, mobilize- cont IV atbx to regular floor when ok with med team some concern for ileus- colonic distention noted at operation 12/19/16- discussed lap angela, possible cholangiogram, possible open operation with pt, including risks of bleeding, infection, bowel/ bile duct injury with leakage- he wishes to proceed
--- NOTE | 2016-12-22 12:05 | CARDIOLOGY PROGRESS NOTE ---
DATE: 12/22/2016 This morning, Mr. Rowe claims to be feeling quite well. He is able to tolerate regular food and has no significant abdominal complaints. It appears that his abdominal distention improved last night with some flatus. He is not aware of any rapid heart beats. He does not have any symptoms of chest pain. He has been ambulatory around the room without significant dizziness or lightheadedness. PHYSICAL EXAMINATION: GENERAL: He does not appear to be in any acute distress. He is a pleasant individual who is alert and oriented. His mood and affect appear normal. CURRENT VITAL SIGNS: Include blood pressure of 147/50 with a pulse of 70. LUNGS: Auscultation of his lung jha reveal occasional crackles at the left base but otherwise they were clear. He had good air movement. CARDIAC: Revealed him to be in a regular rhythm. I do not appreciate any murmur on exam today. Review of the patient's telemetry reveals conversion to sinus rhythm. LABORATORY DATA: Laboratory studies today included a white cell count of 8, hemoglobin of 13, platelet count of 290. Sodium is 141, potassium is 3.9, BUN was 10, creatinine was 0.85. At this point, it would seem reasonable to anticipate a discharge in the next day or so and sending him home on an outpatient regiment of diltiazem and metoprolol seems frausto. I think we can use 180 mg of long acting diltiazem with a small dose of metoprolol at 12.5 mg twice daily of tartrate or a similar daily dose of succinate. The patient has been anticoagulated and until we are confident that his episode of atrial fibrillation was exclusively related to this episode, I would advocate continued outpatient anticoagulation. He should follow up in my clinic in a period of 1 month's time, sooner if he develops additional symptoms.
--- NOTE | 2016-12-22 14:49 | Progress Note ---
Subjective Date of Service: Dec 22, 2016. Subjective Pt evaluation today including: conversation w/ patient, physical exam, lab review, conversation w/ employment consultant, review of inpatient medication list Pain: no pain today PO Intake: adequate, regular food now Voiding: no voiding problems patient feeling well today, converted to NSR overnight no chest pain, no palpitations, no dyspnea Review of Systems Constitutional: + fatigue, + weakness Abdomen: + pain (RUQ, minimal) All Other Systems: Reviewed and Negative Medications Current Inpatient Medications Medications (Trade) Dose Ordered Sig/Melanie Route Start Time Stop Time Status Last Admin Dose Admin Ciprofloxacin/ Dextrose 400 mg/ Prmx 200 ml @ 100 mls/hr Q12H IV 12/16/16 20:00 12/29/16 19:59 12/22/16 07:30 100 MLS/HR Metronidazole/Prmx (Flagyl / Nss/ Premixed Nss) 100 ml @ 100 mls/hr Q8H IV 12/16/16 20:00 12/29/16 19:59 12/22/16 11:50 100 MLS/HR Acetaminophen (Tylenol Tab) 650 mg Q4H PRN PO 12/16/16 15:45 01/15/17 15:44 12/16/16 19:42 650 MG Ondansetron HCl (Zofran Inj) 4 mg Q6H PRN IV 12/16/16 15:45 01/15/17 15:44 Polyethylene (Miralax Powder Packet) 17 gm DAILY PRN PO 12/16/16 15:45 01/15/17 15:44 Pantoprazole Sodium 40 mg 40 mg QAM PO 12/17/16 09:00 01/16/17 08:59 12/22/16 07:30 40 MG Levothyroxine Sodium/Syringe (Synthroid Inj/ Syringe) 2.5 ml @ 2 mls/min DAILY@09 IV 12/18/16 09:00 01/17/17 08:59 12/22/16 09:13 2 MLS/MIN Diltiazem HCl (Cardizem Tab) 60 mg Q6 PO 12/18/16 12:00 01/17/17 11:59 12/22/16 11:49 60 MG Hydromorphone HCl (Dilaudid Inj) 0.5 mg Q3H PRN IV 12/19/16 09:00 01/02/17 08:59 Hydromorphone HCl (Dilaudid Inj) 1 mg Q3H PRN IV 12/19/16 09:00 01/02/17 08:59 Magnesium Hydroxide (Milk Of Magnesia Susp) 30 ml BID PO 12/19/16 21:00 01/18/17 20:59 12/21/16 20:22 30 ML Senna/Docusate Sodium 1 tab 1 tab BID PO 12/19/16 21:00 01/18/17 20:59 12/21/16 20:22 1 TAB Promethazine HCl 25 mg/Sodium Chloride 51 ml @ 204 mls/hr Q6H PRN IV 12/19/16 09:00 01/18/17 08:59 Lactated Ringer's 1,000 ml @ 50 mls/hr Q20H IV 12/19/16 09:15 01/18/17 09:14 12/22/16 02:41 50 MLS/HR Promethazine HCl/ Sodium Chloride (Phenergan Inj/ Nss 50ml) 50.5 ml @ 202 mls/hr Q6H PRN IV 12/19/16 09:30 01/18/17 09:29 Potassium/ Phosphorus/Sodium (Phospha 250 Neutral 155-852-130 Mg) 1 tab BID PO 12/21/16 09:00 01/20/17 08:59 12/22/16 07:31 1 TAB Metoprolol Tartrate 12.5 mg 12.5 mg TID PO 12/21/16 09:00 01/20/17 08:59 12/22/16 14:03 12.5 MG Heparin Sodium/ Dextrose (Heparin 25,000 Unit/500ml D5W) 500 ml @ 27 mls/hr [id number] PRN IV 12/21/16 09:15 01/20/17 09:14 12/22/16 13:00 27 MLS/HR Warfarin Sodium (Coumadin Tab) 5 mg DAILY@16 PO 12/22/16 16:00 01/21/17 15:59 Objective Vital Signs Date Time Temp Pulse Resp B/P Pulse Ox O2 Delivery O2 Flow Rate FiO2 12/22/16 14:02 69 137/82 12/22/16 12:28 36.9 70 67 94 12/22/16 12:05 36.9 67 121/70 94 Room Air 12/22/16 12:00 95 Room Air 12/22/16 08:00 95 Room Air 12/22/16 07:46 36.8 70 20 147/50 95 Room Air 12/22/16 04:00 Room Air Venturi Mask 12/22/16 03:35 36.3 93 19 132/82 97 Room Air 12/21/16 23:59 Room Air Venturi Mask 12/21/16 23:30 36.6 65 18 121/75 95 Room Air 12/21/16 20:00 Room Air Venturi Mask 12/21/16 19:00 36.8 75 18 150/89 96 12/21/16 16:00 Room Air 12/21/16 15:49 36.9 96 18 124/74 95 Physical Exam General Appearance: WD/WN, no apparent distress Eyes: normal inspection, EOMI, sclerae normal ENT: normal ENT inspection, hearing grossly normal, pharynx normal Neck: supple, no adenopathy, no JVD, trachea midline Respiratory/Chest: chest non-tender, lungs clear, normal breath sounds, no respiratory distress, no accessory muscle use Cardiovascular: regular rate, rhythm, no edema, no gallop, no JVD, no murmur Abdomen: normal bowel sounds, soft, no organomegaly, + tenderness (minimal RUQ pain) Extremities: normal range of motion, non-tender, normal inspection, no pedal edema, no calf tenderness 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, no motor/sensory deficits, alert, normal mood/affect, oriented x 3 Skin: normal color, warm/dry, no rash Lymphatic: no adenopathy Laboratory Results Last 24 Hours Test 12/21/16 21:02 12/22/16 04:25 Activated Partial Thromboplast Time 77.6 SECONDS 66.0 SECONDS Partial Thromboplastin Ratio 3.0 2.5 White Blood Count 8.99 K/uL Red Blood Count 4.28 M/uL Hemoglobin 13.4 g/dL Hematocrit 40.1 % Mean Corpuscular Volume 93.7 fL Mean Corpuscular Hemoglobin 31.3 pg Mean Corpuscular Hemoglobin Concent 33.4 g/dl RDW Standard Deviation 50.6 fL RDW Coefficient of Variation 14.8 % Platelet Count 290 K/uL Mean Platelet Volume 9.9 fL Prothrombin Time 13.1 SECONDS Prothromb Time International Ratio 1.2 Assessment and Plan This is an 81yo M with past medical history of hypothyroidism, BPH, vitamin B deficiency, who presents after approximately 5 days of abdominal pain in RUQ with fevers and chills, found to have severe acute cholecystitis, acute pancreatitis, possible choledocholithiasis, and new onset rapid atrial fibrillation. 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 fib with RVR-new onset, asymptomatic, now converted to NSR on 12/22 rates in 70-80's at rest this AM, sinus rhythm Diltiazem 180mg daily and metoprolol 12.5mg BID started on heparin gtt, Coumadin 7.5mg yesterday and 5mg planned for today, INR 1.2 echo: normal LV function, LA dilated, mild MR ultimately cardiology plans for cardioversion in a few weeks, follow up with Dr. Schuster Hypothyroidism-TSH normal in 09/2016, now with rapid a-fib. TSH normal at 1.49 - Continue levothyroxine PO BPH- urinating well since swain d/c, no reported problems, continue to monitor Vitamin B deficiency-B12 level 700 in 09/2016, stable -restart po B12 at discharge DVT prophylaxis: Teds, SCDs, out of bed GI Proph- PPI CODE STATUS: full code Disposition: transfer to medical floor
[2016-12-22] MEDS: WARFARIN SOD 5 MG TAB PO SCH (15:49)
--- NOTE | 2016-12-22 18:32 | GASTROENTEROLOGY PROGRESS NOTE ---
DATE: 12/22/2016 GASTROENTEROLOGY INPATIENT PROGRESS NOTE SUBJECTIVE: The patient underwent laparoscopic cholecystectomy on Monday, December 20. He has continued to do well overall. His pain is decreased from admission (gallstone pancreatitis). He is eating solid foods over the past day. These seemed to be tolerated well. He also reports bowel movements. VITAL SIGNS: The patient has been afebrile since at least December 20. His current blood pressure 131/75, respirations 18, heart rate 71, room air 97%. He is 36.3 degrees. CURRENT LABORATORY STUDIES: Today show white count of 8.99 which is down from yesterday of 11.7, hemoglobin 13.4, MCV 94. Serum chemistries - his last liver panel was December 20, at which time his LFTs were slowly trending down. His lipase became normal on December 19. MEDICATIONS: Reviewed and include Lopressor, magnesium, senna, Phenergan, hydromorphone p.r.n., levothyroxine, pantoprazole, Cipro and Flagyl. He is also on warfarin. ALLERGIES: HE IS ALLERGIC TO PENICILLIN. PHYSICAL EXAMINATION: GENERAL: Today, the patient is resting comfortably, sitting in bed and eating his evening meal. The patient is awake, alert and oriented x3. His physical exam is unremarkable. ABDOMEN: Shows mild tenderness to palpation, but overall no rebound or guarding. EXTREMITIES: Without edema. RECTAL: Deferred. IMPRESSION AND PLAN: The patient is status post acute cholecystitis with gallstone pancreatitis. I will place a liver panel order for tomorrow to ensure that these are trending towards normal/baseline. The MRCP overall was a normal study prior to cholecystectomy, but was a limited study due to patient motion. There were no clear filling defects appreciated, although the distal aspect of the common duct was suboptimally visualized. There was also moderate reactive wall thickening in the hepatic flexure of the colon. If LFTs should be trended towards normal and certainly if there is any features of abdominal discomfort then reexamination of the biliary system perhaps with repeat MRCP or possibly EUS is reasonable. All questions answered. In addition a colonoscopy, if not recently performed is recommended if there are any lower GI symptoms and if he has not had a screening based on the current recommendations.
[2016-12-23] MEDS: DILTIAZEM HCL 60 MG TAB PO SCH ×3 (00:32→11:33)
[2016-12-23] MEDS: LACTATED RINGER'S 1000ML 1,000 ML IV SCH (00:33)
[2016-12-23] MEDS: METRONIDAZOLE / NSS 500 MG in PREMIXED NSS 100 ML IV SCH ×2 (04:05→11:35)
[2016-12-23] MEDS: HEPARIN 25,000 UNIT/500ML D5W 500 ML IV PRN (07:08)
[2016-12-23 07:15] VITALS: BP 151/77; PULSE 75; TEMP 36.6; O2SAT 94
--- NOTE | 2016-12-23 07:27 | Surgery Progress Note ---
Surgery Progress Note Date of Service Dec 23, 2016. Subjective + feeling well Objective Vital Signs: Date Time Temp Pulse Resp B/P Pulse Ox O2 Delivery O2 Flow Rate FiO2 12/23/16 07:15 36.6 75 18 151/77 94 Room Air 12/23/16 00:15 Room Air 12/22/16 23:00 36.7 61 16 115/69 93 Room Air 12/22/16 21:20 72 123/70 12/22/16 15:35 36.3 71 18 131/75 97 Room Air 12/22/16 14:02 69 137/82 12/22/16 12:45 Room Air 12/22/16 12:45 36.5 69 18 137/81 94 Room Air 12/22/16 12:28 36.9 70 67 94 12/22/16 12:05 36.9 67 121/70 94 Room Air 12/22/16 12:00 95 Room Air 12/22/16 08:00 95 Room Air 12/22/16 07:46 36.8 70 20 147/50 95 Room Air General Appearance: no apparent distress Respiratory/Chest: no respiratory distress Abdomen: soft Incision(s): drainage (expected) Laboratory Results: Results Past 24 Hours Test 12/23/16 04:44 Range/Units Assessment & Plan 12/23/16- stable- adjusting coumadin- Leave drain- office next week- pt will call for appt- scripts in chart. Dr Wellington covering over weekend 12/22/16- progressing well- d/c with drain when ok with med team- scripts for pain med, atbx in chart- instr in record cont to follow 12/21/16- abd distention/ ileus not unexpected- monitor, cont atbx IV begin coumadin per medical team, no Lovenox, can use Heparin if needed. await return of bowel function 12/20/16- s/p lap angela- severe necrotizing disease- much purulence- gangrenous gallbladder- d/c swain, decrease IV, mobilize- cont IV atbx to regular floor when ok with med team some concern for ileus- colonic distention noted at operation 12/19/16- discussed lap angela, possible cholangiogram, possible open operation with pt, including risks of bleeding, infection, bowel/ bile duct injury with leakage- he wishes to proceed 12/22/16- progressing well- d/c with drain when ok with med team- scripts for pain med, atbx in chart- instr in record cont to follow 12/21/16- abd distention/ ileus not unexpected- monitor, cont atbx IV begin coumadin per medical team, no Lovenox, can use Heparin if needed. await return of bowel function 12/20/16- s/p lap angela- severe necrotizing disease- much purulence- gangrenous gallbladder- d/c swain, decrease IV, mobilize- cont IV atbx to regular floor when ok with med team some concern for ileus- colonic distention noted at operation 12/19/16- discussed lap angela, possible cholangiogram, possible open operation with pt, including risks of bleeding, infection, bowel/ bile duct injury with leakage- he wishes to proceed
[2016-12-23] MEDS: CIPROFLOXACIN / D5W 400 MG in PREMIXED IN D5W 200 ML IV SCH (08:20)
[2016-12-23] MEDS: MAGNESIUM HYDROXIDE SUSP 30 ML UDC PO SCH (08:23)
[2016-12-23] MEDS: POT PHOSPHATE MONOBASIC W/ SOD TAB PO SCH (08:23)
[2016-12-23] MEDS: METOPROLOL TARTRATE 25 MG TAB PO SCH ×2 (08:23→13:40)
[2016-12-23] MEDS: PANTOprazole SOD 40 MG TAB PO SCH (08:24)
[2016-12-23] MEDS: DOCUSATE SODIUM/SENNA 50/8.6MG TAB PO SCH (08:24)
[2016-12-23 08:45] LABS: INR 1.5 (0.9-1.1); PARTIAL THROMBOPLASTIN RATIO 2.5; PROTHROMBIN TIME (PATIENT) 16.1 SECONDS (9.0-12.0)
[2016-12-23 08:50] LABS: BUN/CREATININE RATIO 10.7 (10-20); CALCIUM 8.2 mg/dl (8.5-10.1); CREATININE 0.85 mg/dl (0.60-1.40); MAGNESIUM 2.2 mg/dl (1.8-2.4); POTASSIUM 3.8 mmol/L (3.5-5.1)
[2016-12-23 08:57] LABS: PHOSPHORUS 2.6 mg/dl (2.5-4.9)
[2016-12-23] MEDS: LEVOTHYROXINE SODIUM INJ 50 MCG in SYRINGE 0 ML IV SCH (09:22)
--- NOTE | 2016-12-23 09:58 | CARDIOLOGY PROGRESS NOTE ---
DATE: 12/23/2016 This morning, Mr. Rowe claims to be feeling well. He has had no abdominal discomfort. He has been tolerating regular diet and he has been ambulating without symptoms of dizziness, dyspnea or chest pain. PHYSICAL EXAMINATION: GENERAL: He was alert and oriented. His mood and affect appeared normal. He answered all questions appropriately. VITAL SIGNS: His current vital signs include blood pressure of 151/77 with a pulse of 75. LUNGS: Auscultation of his lungs reveals him to be clear. He had good air movement. CARDIAC: Cardiac examination reveals him to be in a regular rhythm with occasional ectopy. LABORATORY STUDIES: Include white cell count of 8.9, hemoglobin of 13.4 and a platelet count of 290. Sodium was 140, potassium was 3.8, BUN was 9, creatinine was 0.85. ASSESSMENT AND PLAN: Atrial fibrillation: Patient currently in sinus rhythm with occasional ectopy. He seems to be tolerating his medical regimen of metoprolol and diltiazem quite well. He has been started on anticoagulation, but should not be held in the hospital exclusively, waiting for a therapeutic INR. It would be reasonable to continue titration as an outpatient, if he is, otherwise, ready to be discharged. At this point, a discharge dose of diltiazem and metoprolol at 180 mg and 12.5 mg b.i.d. respectively seems appropriate. Patient can follow up in cardiology in approximately 1 month's time. Cardiology will sign off at this point. Please re-consult the cardiology service for additional questions or problems. JENAE
[2016-12-23 13:41] VITALS: BP 124/68; PULSE 75
[2016-12-23] MEDS ORDERED: CMD5 PO (14:27)
[2016-12-23] MEDS ORDERED: LPR25 PO (14:27)
[2016-12-23] MEDS ORDERED: DILT180C96 PO (14:27)
--- NOTE | 2016-12-23 14:32 | Discharge Instructions ---
Discharge Instructions Date of Service Dec 23, 2016. Admission Reason for Admission: Acute Cholecystitis, Atrial Fibrilation With Rvr Discharge Discharge Diagnosis / Problem: Acute cholecystitis, gangrenous gall bladder, new atrial fibrillation Discharge Goals Goal(s): Decrease discomfort, Improve disease control, Diagnostic testing (INR) Activity Recommendations Activity Limitations: per Instructions/Follow-up section please see surgery instructions for limitations . Instructions / Follow-Up Instructions / Follow-Up Medications: - Cipro and Flagyl per surgery - pain medication per surgery - COUMADIN: 5mg daily, check INR on Monday with results to Coagulation Clinic - DILTIAZEM: 180mg daily in the morning - METOPROLOL: 12.5mg twice a day FOLLOW UP - coagulation clinic next Monday for INR and initial visit - Dr. Xie, early next week, he will pull drain at that time - Dr. Schuster in 3-4 weeks, his office should call but if you do not here from them early next week, call [phone] Current Hospital Diet Patient's current hospital diet: Low Fiber Diet Discharge Diet Recommended Diet: Low Fiber Diet, Low Fat Diet Procedures Procedures Performed: Laparoscopic Cholecystectomy Pending Studies Studies pending at discharge: no Laboratory Results INR 1.5 Last Resulted CBC 12/22/16 04:25 Last Resulted BMP 12/23/16 07:42 Medical Emergencies . Who to Call and When: Medical Emergencies: If at any time you feel your situation is an emergency, please call 911 immediately. . Non-Emergent Contact Non-Emergency issues call your: Surgeon Call Non-Emergent contact if: you have a fever, your pain is not controlled, your pain is worsening, you have any medication questions . . "Provider Documentation" section prepared by Estrada Berry. VTE Core Measure Inpt VTE Proph given/why not?: Unfractionated heparin SQ, Warfarin (Coumadin) [place] Drug Monitoring Program Search Results: no issues identified
[2016-12-23 15:42] VITALS: BP 117/72; PULSE 66; TEMP 36.7; O2SAT 94
[2016-12-23] MEDS: WARFARIN SOD 5 MG TAB PO SCH (15:53)
[2016-12-23 15:59] VITALS: BP 117/72; PULSE 66; TEMP 36.7; O2SAT 94
--- NOTE | 2016-12-24 08:05 | Discharge Summary ---
Discharge Summary Date of Service Dec 24, 2016. Discharge Summary Admission Date: Dec 16, 2016 at 15:49 Discharge Date: Dec 23, 2016 Discharge Disposition: Home Principal Diagnosis: Acute cholecystitis, gangrenous gall bladder Problems/Secondary Diagnoses: Atrial fibrillation with RVR, new onset with acute illness, converted to NSR Immunizations: History of Tetanus Vaccine?: Unknown History of Pneumococcal: Unknown History of Hepatitis B Vaccine: Unknown Procedures: Laparoscopic cholecystectomy 12/19, gangrenous gall bladder, no complications Echocardiogram: EF normal, moderately dilated LA, otherwise normal Consultations: General surgery - Dr. Xie Cardiology - Dr. Schuster Medication Reconciliation New Medications: Ciprofloxacin Hcl (Cipro) 500 Mg Tab 1 TAB PO BID for 10 Days, #20 TAB Diltiazem Hcl Coated Beads (Diltiazem Cd) 180 Mg Cap 180 MG PO DAILY for 30 Days, #30 CAP 3 Refills Hydrocodone/Acetaminophen 5MG/325MG ([place] 5MG/325MG) Tab 1-2 TABLET PO q 6 hrs PRN for Pain, #30 TAB PRN PAIN Metronidazole (Flagyl) 500 Mg Tab 500 MG PO TID for 7 Days, #21 TAB Metoprolol Tartrate (Lopressor) 25 Mg Tab 12.5 MG PO BID, #60 TAB 3 Refills Warfarin Sod (Coumadin) 5 Mg Tab 5 MG PO DAILY@16, #30 TAB 1 Refill Continued Medications: Cholecalciferol (Vitamin D 400) 400 Unit Chw 400 UNITS PO DAILY Cyanocobalamin (Vitamin B-12) 1,000 Mcg Sub Unknown Dose PO DAILY Veuzfoedmlf-Soqxtjjiahg-Hcz C- (Glucosamine 1500 Complex) 1 Cap Cap 1 CAP PO DAILY Levothyroxine Sodium (Synthroid) 100 Mcg Tab 100 MCG PO DAILY, TAB Magnesium Oxide (Mg Supplement (Magnesium) 250 Mg Tab Unknown Dose PO DAILY Discharge Exam Patient feeling well on day of discharge, eating well, moving bowels, very limited abdominal pain. HR controlled, still in NSR. Discussed plan for discharge with general surgery as well as cardiology. Since the patient in sinus rhythm there is no need for keeping him in hospital until INR therapeutic , 1.5 today. Review of Systems: Constitutional: No chills, No fatigue, No fever, No problem reported, No sweats, No weakness, No weight loss Eyes: No diplopia, No discharge, No eye pain, No problem reported, No redness, No worsening of vision ENT: No dental problems, No hearing loss, No nasal symptoms, No problem reported, No sore throat, No tinnitus, No trouble swallowing, No unusual epistaxis Respiratory: No cough, No dyspnea at rest, No dyspnea on exertion, No hemoptysis, No problem reported, No shortness of breath, No sputum, No wheezing Cardiovascular: No PND, No chest pain, No claudication, No edema, No orthopnea, No palpitations, No problem reported Abdomen: + pain (RUQ, minimal), No GI bleeding, No constipation, No diarrhea , No nausea, No problem reported, No vomiting Musculoskeletal: No calf pain, No joint pain, No muscle pain, No problem reported, No swelling Genitourinary - Male: No dysuria, No hematuria, No urinary frequency, No urinary urgency Neurologic: No balance problems, No memory loss, No numbness/tingling, No paralysis, No problem reported, No vertigo, No weakness Psychiatric: No anhedonism, No anxiety, No depression symptoms, No insomnia , No problem reported, No substance abuse Endocrine: No excessive thirst, No excessive urination, No fatigue, No problem reported Hematologic / Lymphatic: No abnormal bleeding/bruising, No clotting problems , No night sweats, No problem reported, No swollen lymph nodes Integumentary: No bleeding, No color change, No itch, No new/changing skin lesions, No problem reported, No rash Physical Exam: General Appearance: WD/WN, no apparent distress Eyes: normal inspection, EOMI, sclerae normal ENT: normal ENT inspection, hearing grossly normal, pharynx normal Neck: supple, no adenopathy, no JVD, trachea midline Respiratory/Chest: chest non-tender, lungs clear, normal breath sounds, no respiratory distress, no accessory muscle use Cardiovascular: regular rate, rhythm, no edema, no gallop, no JVD, no murmur , normal peripheral pulses Abdomen / GI: normal bowel sounds, soft, no organomegaly, + tenderness ( minimal in RUQ), + pertinent finding (YADIRA drain - serous drainage) Extremities: normal inspection, no calf tenderness, normal capillary refill , no pedal edema, normal range of motion, pelvis stable Neurologic/Psychiatric: i o psychologist II-XII nml as tested, no motor/sensory deficits , alert, normal mood/affect, normal reflexes, oriented x 3 Skin: normal color, warm/dry, no rash Lymphatic: no adenopathy Hospital Course This is an 81yo M with past medical history of hypothyroidism, BPH, vitamin B deficiency, who presents after approximately 5 days of abdominal pain in RUQ with fevers and chills, found to have severe acute cholecystitis, acute pancreatitis, possible choledocholithiasis, and new onset rapid atrial fibrillation. On surgery, the gall bladder was gangrenous. No complications with surgery. Severe acute cholecystitis with suspected gallstone pancreatitis-- s/p lap angela on 12/19, findings of gangrenous gall bladder, tolerated well, no complications, continues to recover well, tolerating regular consistency, passing flatus treated with Cipro/Flagyl IV initially, change to Cipro for 10 more days and Flagyl 7 more days keep YADIRA, follow up with Dr. Xie on Monday pancreatitis resolved quickly with IV fluids and supportive care A. fib with RVR-new onset, asymptomatic, now converted to NSR on 12/22 rates in 70-80's at rest this AM, sinus rhythm Diltiazem 180mg daily and metoprolol 12.5mg BID started on heparin gtt, Coumadin 7.5mg 12/22 and 5mg 12/23, INR 1.5 will continue 5mg daily, follow up with coagulation clinic on Monday echo: normal LV function, LA dilated, mild MR ultimately cardiology plans for cardioversion in a few weeks, follow up with Dr. Schuster 3-4 weeks Hypothyroidism-TSH normal in 09/2016, now with rapid a-fib. TSH normal at 1.49 - Continue levothyroxine PO BPH- urinating well since swain d/c, no reported problems, continue to monitor Vitamin B deficiency-B12 level 700 in 09/2016, stable -restart po B12 at discharge DVT prophylaxis: Teds, SCDs, out of bed GI Proph- PPI CODE STATUS: full code Disposition: home, he refused home health services Total Time Spent: Greater than 30 minutes This includes examination of the patient, discharge planning, medication reconciliation, and communication with other providers. Discharge Instructions Please refer to the electronic Patient Visit Report (Discharge Instructions) for additional information. Follow-Up Dr. Ocampo in two weeks Dr. Xie on Monday Dr. Schuster in 4 weeks Coagulation clinic on Monday Additional Copies To Jose Ramon Ocampo M.D.; Robles Xie M.D.; Dav Schuster MD; Missy Aaron M.D., PHD
[2017-01-03] MEDS ORDERED: WARF5TAB7 PO (13:01)
[2017-01-06] MEDS ORDERED: WARF5TAB7 PO (10:30)
[2017-01-10] MEDS ORDERED: CLC/300 PO (12:21)
[2017-01-10] MEDS ORDERED: BCTO EXT (12:21)
[2017-01-12] MEDS ORDERED: SACC250C3 PO (11:20)
[2017-04-18] MEDS ORDERED: DILT-113 PO (07:34)
[2017-05-04] MEDS ORDERED: CIPR1TAB10 PO (13:47)
[2017-05-04] MEDS ORDERED: HYDR-5688 PO (13:47)
[2017-05-05] MEDS ORDERED: CEPH500C2 PO (10:03)
== END 2016-12-23 16:58 | disposition home or self-care (01) | DRG 418 ==
LOC: ENRESERVTM → ENRESERVDT → C.EDB 12:36 → EEVIPCON 15:49 → C.2E 15:49 → C.MSN 12-22 12:47
PROVIDERS: ADMIT Hospitalist; ATTEND Internal Medicine
PROC: 0FT44ZZ Resection of Gallbladder, Percutaneous Endoscopic Approach (ICD-10-PCS; principal; 2016-12-19 07:15)
DX: K80.00 Calculus of gallbladder with acute cholecystitis without obstruction (principal); K57.92 Diverticulitis of intestine, part unspecified, without perforation or abscess without bleeding; N40.1 Benign prostatic hyperplasia with lower urinary tract symptoms; I48.91 Unspecified atrial fibrillation; E03.9 Hypothyroidism, unspecified; E53.8 Deficiency of other specified B group vitamins; K40.90 Unilateral inguinal hernia, without obstruction or gangrene, not specified as recurrent; I45.10 Unspecified right bundle-branch block; R33.9 Retention of urine, unspecified; N28.1 Cyst of kidney, acquired; Z87.891 Personal history of nicotine dependence; Z66 Do not resuscitate

== ENCOUNTER 2017-01-07 21:44 | Inpatient (IN) | payer BC, OTHER ==
[~2017-01-07] VITALS: Ht 175.3 cm; Wt 76.0 kg
[~2017-01-07 21:44] MED LIST changes: -ASPCH81X PO; +DILT180C58 PO; -GLUC15002 PO; +LPR25 PO; -MAGN250T8 PO; -MULT1CHW22 PO; +WARF5TAB7 PO
[2017-01-07] MEDS ORDERED: SODIUM CHLORIDE 0.9% 1000ML 1,000 ML IV STA (22:59)
[2017-01-07 23:26] LABS: URINE APPEARANCE CLEAR (CLEAR); URINE COLOR DK YELLOW; URINE EPITHELIAL CELL AUTO 0-5 /lpf (0-5); URINE NITRITE NEG (NEG); URINE PH 5.5 (4.5-7.5); URINE SPECIFIC GRAVITY 1.014 (1.000-1.030); UROBILINOGEN NEG (NEG); ZZUR CULT IF INDIC CLEAN CATCH NO
[2017-01-07 23:39] LABS: MANUAL MICROSCOPIC REQUIRED? NO; REVIEW REQ? NO; URINE BILIRUBIN NEG (NEG)
[2017-01-07 23:46] LABS: BASO % 0.1 %; BASO ABS # 0.01 K/uL (0-0.2); COMPLETE YES; EOS % 0.4 %; HEMATOCRIT 43.6 % (42-52); IG% 0.3 %; LYMPH % 8.4 %; MEAN CORPUSCULAR HEMOGLOBIN 31.6 pg (25-34); MEAN CORPUSCULAR HGB CONC 33.9 g/dl (32-36); MEAN PLATELET VOLUME 9.8 fL (7.4-10.4); MONO % 7.3 %; NEUT % 83.5 %; PLATELET COUNT 189 K/uL (130-400); RED BLOOD COUNT 4.69 M/uL (4.7-6.1); WHITE BLOOD COUNT 7.17 K/uL (4.8-10.8)
[2017-01-07 23:58] LABS: INR 2.7 (0.9-1.1); PARTIAL THROMBOPLASTIN RATIO 1.5; PROTHROMBIN TIME (PATIENT) 30.5 SECONDS (9.0-12.0)
[2017-01-08 00:11] LABS: BUN/CREATININE RATIO 14.7 (10-20); CALCIUM 8.6 mg/dl (8.5-10.1); CREATININE 0.92 mg/dl (0.60-1.40); POTASSIUM 4.5 mmol/L (3.5-5.1)
[2017-01-08] MEDS ORDERED: OPTIRAY 320 IV PRN (01:15)
[2017-01-08] MEDS ORDERED: CIPROFLOXACIN 400MG / 200ML D5W IV STA (02:26)
[2017-01-08] MEDS ORDERED: METRONIDAZOLE 500MG / 100ML NSS IV STA (02:26)
--- NOTE | 2017-01-08 02:36 | EMERGENCY ROOM VISIT NOTE ---
History Report prepared by Andrea: Bhumika Krishnamurthy Under the Supervision of: Dr. Paolo Noriega D.O. First contact with patient: 22:49 Chief Complaint: FEVER Stated Complaint: FEVER, S/P GALL BLADDER SURGERY History of Present Illness The patient is a 81 year old male who presents to the Emergency Room with complaints of fever starting a few hours [employer]. The patient states that 2 weeks ago he had a cholecystectomy due to a gangrene infection. The patient states that he came into the ED for atrial fibrillation and had general abdominal pain. The patient states that over the last two weeks he was taking antibiotics and finished them about 2 days ago. The patient states that when he woke up today he felt more lethargic along with some nausea. The patient states that he checked for a fever tonight and had one of 100.4 degrees Fahrenheit. He states he did not take any medications for his fever. He was concerned about more infection from his recent surgery. The patient denies any specific abdominal pain or cough or cold symptoms. 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 A total of 10 systems reviewed and were otherwise negative. Past Medical & Surgical Medical Problems: (1) Acute cholecystitis (2) Atrial fibrillation with RVR Family History No pertinent family history secondary to age Social History Smoking Status: Never Smoker Drug Use: none Marital Status: Housing Status: lives with family Occupation Status: employed Current/Historical Medications Scheduled Diltiazem Hcl Coated Beads (Diltiazem Cd), 180 MG PO DAILY Levothyroxine Sodium (Synthroid), 100 MCG PO DAILY Metoprolol Tartrate (Lopressor), 12.5 MG PO BID Warfarin Sod ([place]), 2.5 MG PO 2XWK Warfarin Sod ([place]), 5 MG PO 5XWK Allergies Coded Allergies: Penicillins (Unverified Allergy, Unknown, RASH, 01/08/17) Physical Exam Vital Signs Date Time Temp Pulse Resp B/P Pulse Ox O2 Delivery O2 Flow Rate FiO2 01/08/17 00:47 18 144/70 01/07/17 23:29 73 18 140/68 98 Room Air 01/07/17 21:48 37.2 94 18 162/76 96 Room Air Physical Exam CONSTITUTIONAL/VITAL SIGNS: Reviewed / noted above. GENERAL: Non-toxic in appearance. INTEGUMENTARY: Warm, dry, and [place]. HEAD: Normocephalic. EYES: without scleral icterus or trauma. ENT/OROPHARYNX: clear and moist. LYMPHADENOPATHY/NECK: Is supple without lymphadenopathy or meningismus. RESPIRATORY: Lungs clear and equal. CARDIOVASCULAR: Regular rate and rhythm. GI/ABDOMEN: Soft and nontender. No organomegaly or pulsatile mass. No rebound or guarding. Normal bowel sounds. Healed wounds from a laparoscopic cholecystectomy. One wound that is still in the healing stages and minimally erythematous. This is where the drain was placed for a prolonged period. EXTREMITIES: Warm and well perfused. BACK: No CVA tenderness. NEUROLOGICAL: Intact without focal deficits. PSYCHIATRIC: normal affect. MUSCULOSKELETAL: Normally developed with good muscle tone. Medical Decision & Procedures ER Provider Diagnostic Interpretation: X ray results and stated below per my interpretation and radiology interpretation. Chest X-Ray: Left lingular haziness No pneumothorax. CT results as stated below per my review and radiologist interpretation: Preliminary Results Only See Final Report for Complete Findings: CT ABDOMEN & PELVIS: Comparison is made to CT abdomen dated 08/28/2006. Lung bases are clear. Status pose cholecystectomy with mild periportal haziness and edema. Correlate with laboratory values and timing of surgery to determine if this represents expected postoperative change or abnormal inflammatory change. No regional fluid collections to suggest abscess or biloma. Subcentimeter hepatic cysts. Pancreas, adrenal glands, and spleen within normal limits. No hydronephrosis or perinephric stranding. 5.1 cm simple renal cyst. No evidence of bowel obstruction or diverticulitis. Appendix not visualized. Probably diverticulum projecting medially from the second portion of the duodenum. Urinary bladder and prostate unremarkable. Bilateral fat-containing inguinal hernias. No acute osseous findings. Lumber spondylosis. Radiologist: Pauline Hendrix M.D Study ready at 0146 and initial report transmitted at 0211 Laboratory Results 01/07/17 23:37 Red Blood Count 4.69, Mean Corpuscular Volume 93.0, Mean Corpuscular Hemoglobin 31.6, Mean Corpuscular Hemoglobin Concent 33.9, Mean Platelet Volume 9.8, Neutrophils (%) (Auto) 83.5, Lymphocytes (%) (Auto) 8.4, Monocytes (%) (Auto) 7.3, Eosinophils (%) (Auto) 0.4, Basophils (%) (Auto) 0.1, Neutrophils # (Auto) 5.99, Lymphocytes # (Auto) 0.60, Monocytes # (Auto) 0.52, Eosinophils # (Auto) 0.03, Basophils # (Auto) 0.01 01/07/17 23:37 Test 01/07/17 23:15 01/07/17 23:37 Urine Color DK YELLOW Urine Appearance CLEAR (CLEAR) Urine pH 5.5 (4.5-7.5) Urine Specific [place] 1.014 (1.000-1.030) Urine Protein NEG (NEG) Urine Glucose (UA) NEG (NEG) Urine Ketones NEG (NEG) Urine Occult Blood NEG (NEG) Urine Nitrite NEG (NEG) Urine Bilirubin NEG (NEG) Urine Urobilinogen NEG (NEG) Urine Leukocyte Esterase NEG (NEG) Urine WBC (Auto) 0 /hpf (0-5) Urine RBC (Auto) 0-4 /hpf (0-4) Urine Hyaline Casts (Auto) 0 /lpf (0-5) Urine Epithelial Cells (Auto) 0-5 /lpf (0-5) Urine Bacteria (Auto) NEG (NEG) White Blood Count 7.17 K/uL (4.8-10.8) Red Blood Count 4.69 M/uL (4.7-6.1) Hemoglobin 14.8 g/dL (14.0-18.0) Hematocrit 43.6 % (42-52) Mean Corpuscular Volume 93.0 fL (80-100) Mean Corpuscular Hemoglobin 31.6 pg (25-34) Mean Corpuscular Hemoglobin Concent 33.9 g/dl (32-36) Platelet Count 189 K/uL (130-400) Mean Platelet Volume 9.8 fL (7.4-10.4) Neutrophils (%) (Auto) 83.5 % Lymphocytes (%) (Auto) 8.4 % Monocytes (%) (Auto) 7.3 % Eosinophils (%) (Auto) 0.4 % Basophils (%) (Auto) 0.1 % Neutrophils # (Auto) 5.99 K/uL (1.4-6.5) Lymphocytes # (Auto) 0.60 K/uL (1.2-3.4) Monocytes # (Auto) 0.52 K/uL (0.11-0.59) Eosinophils # (Auto) 0.03 K/uL (0-0.5) Basophils # (Auto) 0.01 K/uL (0-0.2) RDW Standard Deviation 52.0 fL (36.4-46.3) RDW Coefficient of Variation 15.3 % (11.5-14.5) Immature Granulocyte % (Auto) 0.3 % Immature Granulocyte # (Auto) 0.02 K/uL (0.00-0.02) Prothrombin Time 30.5 SECONDS (9.0-12.0) Prothromb Time International Ratio 2.7 (0.9-1.1) Activated Partial Thromboplast Time 39.4 SECONDS (21.0-31.0) Partial Thromboplastin Ratio 1.5 Anion Gap 6.0 mmol/L (3-11) Est Creatinine Clear Calc Drug Dose 63.0 ml/min Estimated GFR () 90.1 Estimated GFR (Non- 77.7 BUN/Creatinine Ratio 14.7 (10-20) Calcium Level 8.6 mg/dl (8.5-10.1) Total Bilirubin 2.5 mg/dl (0.2-1) Direct Bilirubin 1.8 mg/dl (0-0.2) Aspartate Amino Transf (AST/SGOT) 535 U/L (15-37) Alanine Aminotransferase (ALT/SGPT) 473 U/L (12-78) Alkaline Phosphatase 492 U/L (45-117) Total Protein 7.2 gm/dl (6.4-8.2) Albumin 3.2 gm/dl (3.4-5.0) Lipase 234 U/L (73-393) Laboratory results as stated above per my review. Medications Administered Medications (Trade) Dose Ordered Sig/Melanie Route Start Time Stop Time Status Last Admin Dose Admin Sodium Chloride (Nss 1000ml) 1,000 ml @ 999 mls/hr Q1H1M STAT IV 01/07/17 22:59 01/07/17 23:59 DC 01/07/17 23:44 999 MLS/HR ED Course 2251: Previous medical records were reviewed. The patient was evaluated in room C4. A complete history and physical examination was performed. 2259: Ordered Sodium Chloride 1,000 ml @ 999 mls/hr IV. 0112: I reevaluated the patient and he was resting comfortably. I discussed that he will be going to have a CT scan done shortly. 0219: I discussed the case with Dr. Merrill Griggs General Surgery. She suggest that the patient be admitted for antibiotics and MRCP and he has cholangitis. 0226: Ordered Metronidazole 500 mg IV, Cipro/ D5w 400 mg IV. 0235: I discussed the case with Dr. Argueta [facility] Hospitalist. He agreed to evaluate the patient for further management and care. 0236: I discussed the results with the patient and updated him on his admission. Medical Decision Differential includes acute coronary syndrome, myocardial infarction, CVA, TIA, anemia, infection, pneumonia, UTI, pyelonephritis, poor nutrition, dehydration, electrolyte disturbance,hypoglycemia. This is an 81-year-old male who presents to the ED with a chief complaint of feeling tired and having a fever earlier today of 100.4. The patient states that he stopped taking antibiotics 2-3 days ago. He states that he started feeling bad after finishing the antibiotics. He had a significant infection of his gallbladder that was removed laparoscopically 3 weeks ago. At that time, the patient's liver function tests were moderately elevated. These improved after treatment and cholecystectomy. The patient's vital signs are normal. He has not taken antipyretics. His abdominal exam did not reveal any significant tenderness. His laparoscopic sites are well-healed. There is a site with some erythema about the size of a sergei where a drain previously existed. This does not appear to be acutely infected. Patient denies any upper respiratory symptoms or cough. The lungs were clear. He denies any other symptoms. CBC is normal. The INR is 2.7. Total bilirubin is elevated at 2.5. AST is 535 and ALT is 473. Urine does not show obvious infection. Chest x-ray revealed some haziness in the left lingula area. This may be atelectasis as the patient denies any pulmonary symptoms or cough. CT scan of the abdomen and pelvis reveals some haziness in the area that the gallbladder was removed. This is concerning for an inflammatory change. I spoke with Dr. Momin. She feels the patient needs admitted for IV antibiotics and MR CP/ERCP and likely has cholangitis. Hospitalist will see the patient for further inpatient evaluation and care. Consults Time Called: 216 Consulting Physician: Dr. Merrill Griggs General Surgery Returned Call: [phone] I discussed the case with Dr. Merrill Griggs General Surgery. She suggest that the patient be admitted for antibiotics and MRCP and he has cholangitis. Additional Consults: Time Called: 222 Consulted Physician: Dr. Kendall PAULSON Hospitalist Returned Call: [phone] Additional Comments: I discussed the case with Dr. Kendall PAULSON Hospitalist. He agreed to evaluate the patient for further management and care. Impression Primary Impression: Cholangitis Scribe Attestation The scribe's documentation has been prepared under my direction and personally reviewed by me in its entirety. I confirm that the note above accurately reflects all work, treatment, procedures, and medical decision making performed by me. Departure Information Dispostion Being Evaluated By Hospitalist Jose Ramon Rdz M.D. (PCP) Patient Instructions My [facility]
[2017-01-08] MEDS ORDERED: PHYTONADIONE INJ 10 MG in SODIUM CHLORIDE 0.9% 50ML 50 ML IV STA (03:30)
[2017-01-08] MEDS ORDERED: ONDANSETRON INJ 2 MG/ML 2 ML VIAL IV PRN (03:30)
--- NOTE | 2017-01-08 04:32 | History and Physical ---
History & Physical Date & Time of Service: Jan 08, 2017 at 04:20 Chief Complaint: Fever, S/P Gall Bladder Surgery Primary Care Physician: Jose Ramon Ocampo M.D. History of Present Illness Source: patient, spouse The patient is an 81-year-old male, with a past medical history including hospitalization at [facility] from December 16- for acute cholecystitis and cholecystectomy. He was discharged home and felt he had been doing well so earlier in the day prior to arrival when he started to develop fever and chills in general not feeling well with some nausea and therefore presents to the emergency department for assessment. Family History No pertinent family history secondary to age Social History Smoking Status: Never Smoker Smokeless Tobacco Use: No Alcohol Use: none Drug Use: none Marital Status: Housing status: lives with family Occupational Status: employed Immunizations History of Tetanus Vaccine?: Unknown History of Pneumococcal: Unknown History of Hepatitis B Vaccine: Unknown Multi-Drug Resistant Organisms History of MDRO: No Allergies Coded Allergies: Penicillins (Unverified Allergy, Unknown, RASH, 01/08/17) Home Medications Scheduled Diltiazem Hcl Coated Beads (Diltiazem Cd), 180 MG PO DAILY Levothyroxine Sodium (Synthroid), 100 MCG PO DAILY Metoprolol Tartrate (Lopressor), 12.5 MG PO BID Warfarin Sod (Jantoven), 2.5 MG PO 2XWK Warfarin Sod (Jantoven), 5 MG PO [id number] Review of Systems The patient denies chest pain, palpitations, shortness of breath, cough, lower extremity swelling, vision change, hearing change, sore throat, weight change, vomiting, blood in urine or stool, dysuria, urinary frequency or urgency, lightheadedness, dizziness, headache, memory loss, rash, abnormal bruising or bleeding, imbalance, focal weakness, numbness or tingling in arms or legs, arthralgias or myalgias, back or neck pain, night sweats, or allergy symptoms. The review of systems is otherwise negative other than for that already noted above, and at least 10 systems have been reviewed. Physical Exam Vital Signs Date Time Temp Pulse Resp B/P Pulse Ox O2 Delivery O2 Flow Rate FiO2 01/08/17 02:43 110 20 125/75 96 Room Air 01/08/17 00:47 18 144/70 01/07/17 23:29 73 18 140/68 98 Room Air 01/07/17 21:48 37.2 94 18 162/76 96 Room Air The patient is awake, well-developed and adequately nourished, alert and oriented 3, normocephalic and atraumatic, lying in bed and in no acute distress. HEENT--PERRL, EOMI, mucous membranes and oropharynx dry. Neck--supple, no JVD or bruits, thyroid normal, trachea midline, no adenopathy. Heart--normal S1 and S2, no extra beats, no murmurs, rubs or gallops. Lungs--clear bilaterally with good air movement, no respiratory distress, no accessory muscle use. Abdomen--normal bowel sounds and soft, mild right upper quadrant/epigastric area tenderness, mildly distended, no hernias or masses, no organomegaly. Extremities--no cyanosis, clubbing or edema. There are good distal pulses b/l. Dermatologic--normal skin turgor, normal color, warm and dry, no abnormal lymph nodes, no rash. Neurologic--cranial nerves II through XII grossly intact, motor and sensory examination normal. Rheumatologic--normal range of motion, nontender, muscles and joints. Psychiatric--normal affect. Diagnostics Laboratory Results Results Past 24 Hours Test 01/07/17 23:15 01/07/17 23:37 Range/Units Urine Color DK YELLOW Urine Appearance CLEAR CLEAR Urine pH 5.5 4.5-7.5 Urine Specific [place] 1.014 1.000-1.030 Urine Protein NEG NEG Urine Glucose (UA) NEG NEG Urine Ketones NEG NEG Urine Occult Blood NEG NEG Urine Nitrite NEG NEG Urine Bilirubin NEG NEG Urine Urobilinogen NEG NEG Urine Leukocyte Esterase NEG NEG Urine WBC (Auto) 0 0-5 /hpf Urine RBC (Auto) 0-4 0-4 /hpf Urine Hyaline Casts (Auto) 0 0-5 /lpf Urine Epithelial Cells (Auto) 0-5 0-5 /lpf Urine Bacteria (Auto) NEG NEG White Blood Count 7.17 4.8-10.8 K/uL Red Blood Count 4.69 4.7-6.1 M/uL Hemoglobin 14.8 14.0-18.0 g/dL Hematocrit 43.6 42-52 % Mean Corpuscular Volume 93.0 80-100 fL Mean Corpuscular Hemoglobin 31.6 25-34 pg Mean Corpuscular Hemoglobin Concent 33.9 32-36 g/dl Platelet Count 189 130-400 K/uL Mean Platelet Volume 9.8 7.4-10.4 fL Neutrophils (%) (Auto) 83.5 % Lymphocytes (%) (Auto) 8.4 % Monocytes (%) (Auto) 7.3 % Eosinophils (%) (Auto) 0.4 % Basophils (%) (Auto) 0.1 % Neutrophils # (Auto) 5.99 1.4-6.5 K/uL Lymphocytes # (Auto) 0.60 1.2-3.4 K/uL Monocytes # (Auto) 0.52 0.11-0.59 K/uL Eosinophils # (Auto) 0.03 0-0.5 K/uL Basophils # (Auto) 0.01 0-0.2 K/uL RDW Standard Deviation 52.0 36.4-46.3 fL RDW Coefficient of Variation 15.3 11.5-14.5 % Immature Granulocyte % (Auto) 0.3 % Immature Granulocyte # (Auto) 0.02 0.00-0.02 K/uL Prothrombin Time 30.5 9.0-12.0 SECONDS Prothromb Time International Ratio 2.7 0.9-1.1 Activated Partial Thromboplast Time 39.4 21.0-31.0 SECONDS Partial Thromboplastin Ratio 1.5 Sodium Level 139 136-145 mmol/L Potassium Level 4.5 3.5-5.1 mmol/L Chloride Level 103 98-107 mmol/L Carbon Dioxide Level 30 21-32 mmol/L Anion Gap 6.0 3-11 mmol/L Blood Urea Nitrogen 14 7-18 mg/dl Creatinine 0.92 0.60-1.40 mg/dl Est Creatinine Clear Calc Drug Dose 63.0 ml/min Estimated GFR () 90.1 Estimated GFR (Non- 77.7 BUN/Creatinine Ratio 14.7 10-20 Random Glucose 141 70-99 mg/dl Calcium Level 8.6 8.5-10.1 mg/dl Total Bilirubin 2.5 0.2-1 mg/dl Direct Bilirubin 1.8 0-0.2 mg/dl Aspartate Amino Transf (AST/SGOT) 535 15-37 U/L Alanine Aminotransferase (ALT/SGPT) 473 12-78 U/L Alkaline Phosphatase 492 45-117 U/L Total Protein 7.2 6.4-8.2 gm/dl Albumin 3.2 3.4-5.0 gm/dl Lipase 234 73-393 U/L Impression Assessment and Plan Acute cholecystitis/status post cholecystectomy during December 16 to December 23 admission/abnormal liver enzymes now similar to presurgery--the patient will be admitted to the medical surgical floor. He will be kept nothing by mouth and placed on IV fluids. Place on Cipro 400 mg IV every 12 hours, Flagyl 500 mg IV every 8 hours, Zofran 4 mg IV every 6 hours when necessary, Protonix 40 mg IV daily, morphine sulfate 2-4 mg IV every 2 hours when necessary. We'll order an MRCP to assess for stone or sludge in the bile ducts. We'll consult Dr. Shepard , from gastroenterology, who saw the patient during the previous admission. Atrial fibrillation with RVR--continue metoprolol tartrate 12.5 mg by mouth twice a day, and diltiazem CD 180 mg by mouth daily. Hold warfarin. We will give vitamin K 10 mg IV now to help reverse INR for upcoming possible procedure. Hypothyroidism--change levothyroxine from 100 g by mouth daily to 50 g IV daily. Level of Care Med/Surg Advanced Directives Existing Advance Directive: No Existing Living Will: No Existing Power of Distillery Manager: No Resuscitation Status FULL RESUSCITATION VTE Prophylaxis VTE Risk Assessment Done? Y/N: Yes Risk Level: Moderate Given or contraindicated: Warfarin (Coumadin), SCD's Social Service Consult None Apply
[2017-01-08] MEDS ORDERED: MoRPHine SULFATE 4 MG/ML 1 ML CARP\\VIAL IV PRN (04:45)
[2017-01-08] MEDS ORDERED: MoRPHine SULFATE 2 MG/ML CARP IV PRN (04:45)
[2017-01-08 04:52] VITALS: BP 132/73; PULSE 93; TEMP 36.7; O2SAT 95; Ht 175.3 cm; Wt 76.0 kg
[2017-01-08] MEDS: NSS + 20MEQ KCL 1000ML 1,000 ML IV SCH ×3 (05:24→23:41)
--- NOTE | 2017-01-08 07:02 | DIAGNOSTIC IMAGING REPORT ---
CHEST ONE VIEW PORTABLE CLINICAL HISTORY: Abdominal pain. COMPARISON STUDY: Chest radiograph December 16, 2016. FINDINGS: Mild bibasilar opacities favor atelectasis. There is no evidence of pulmonary edema. No pneumothorax or pleural effusion is present. Moderate cardiomegaly is unchanged. There is no consolidation to suggest pneumonia. IMPRESSION: 1. Diminished lung volumes with bibasilar opacities suggestive of atelectasis. 2. Moderate cardiomegaly without evidence of pulmonary edema. Electronically signed by: Cisco Nava M.D. 01/08/2017 6:59 AM Dictated Date/Time: 01/08/2017 6:57 AM
--- NOTE | 2017-01-08 07:53 | DIAGNOSTIC IMAGING REPORT ---
CT OF THE ABDOMEN AND PELVIS WITH CONTRAST CLINICAL HISTORY: Abdominal pain and fever status post cholecystectomy December 19, 2016. COMPARISON STUDY: CT of the abdomen and pelvis December 16, 2016 and MRCP December 17, 2016. TECHNIQUE: Following IV administration of 93 mL of Optiray-320, axial images of the abdomen and pelvis were obtained from the lung bases to the proximal femurs. Images were reviewed in the axial, sagittal, and coronal planes. IV contrast was administered without complication. CT DOSE: 378.76 mGy.cm FINDINGS: Mild cardiomegaly is noted. Linear bibasilar opacities suggest atelectasis. No pneumatosis, free air or portal venous gas is present. Infiltration within the cholecystectomy bed is noted. There is no well-defined fluid collection. The common bile duct is not well visualized on this exam. There does not appear to be significant biliary ductal dilatation. There is mild periportal edema. There is no peripancreatic infiltration. There is no pancreatic ductal dilatation. Several diverticula of the second portion the duodenum are noted. A left renal cyst is present. There is no evidence for a bowel obstruction. No suspicious skeletal lesions are identified. The main, left and right portal veins are patent. There is a suspected cyst within the medial segment of the liver. IMPRESSION: 1. Infiltration within the cholecystectomy bed which is a nonspecific finding in the early postoperative setting. No well-defined fluid collection. 2. Common bile duct not well visualized on this exam. No convincing evidence for biliary ductal dilatation. Suspected mild periportal edema. No peripancreatic infiltration. 3. Multiple diverticula of the second portion of the duodenum. Electronically signed by: Cisco Nava M.D. 01/08/2017 7:51 AM Dictated Date/Time: 01/08/2017 7:40 AM
[2017-01-08 07:57] VITALS: BP 123/80; PULSE 78; TEMP 36.8; O2SAT 97
[2017-01-08 09:02] LABS: BASO % 0.1 %; BASO ABS # 0.01 K/uL (0-0.2); COMPLETE YES; EOS % 0.6 %; HEMATOCRIT 39.5 % (42-52); IG% 0.3 %; LYMPH % 10.2 %; LYMPH ABS # 0.69 K/uL (1.2-3.4); MEAN CELL VOLUME 93.8 fL (80-100); MEAN CORPUSCULAR HEMOGLOBIN 31.8 pg (25-34); MEAN CORPUSCULAR HGB CONC 33.9 g/dl (32-36); MONO % 9.8 %; PLATELET COUNT 160 K/uL (130-400); RED BLOOD COUNT 4.21 M/uL (4.7-6.1); WHITE BLOOD COUNT 6.75 K/uL (4.8-10.8)
[2017-01-08] MEDS: METOPROLOL TARTRATE 25 MG TAB PO SCH ×2 (09:03→20:43)
[2017-01-08] MEDS: LEVOTHYROXINE SODIUM INJ 50 MCG in SYRINGE 0 ML IV SCH (09:04)
[2017-01-08 09:21] LABS: INR 1.8 (0.9-1.1); PROTHROMBIN TIME (PATIENT) 20.3 SECONDS (9.0-12.0)
[2017-01-08 09:46] LABS: ALB/GLOB RATIO 0.8 (0.9-2); BUN/CREATININE RATIO 12.3 (10-20); CREATININE 0.73 mg/dl (0.60-1.40)
[2017-01-08] MEDS: PANTOprazole INJ 40 MG in SYRINGE 0 ML IV SCH (10:35)
[2017-01-08] MEDS ORDERED: METRONIDAZOLE / NSS 500 MG in PREMIXED NSS 100 ML IV SCH (11:00)
--- NOTE | 2017-01-08 11:12 | Pre-Operative Consultation ---
History General Date of Service: Jan 08, 2017. Stated Complaint: fever and chills HPI HPI: The patient is a 81 year old male being seen at the request of Dr. Lee for fever/ chills following laparoscopic cholecystectomy about [address] Xie. He was admitted in mid November with findings of gallstone pancreatitis ( lipase elevated, t bili 4.2, lft's in 500s). MRCP done and was suboptimal study but was negative. Seen by Dr. Shepard at that time. Underwent lap angela (no IOC) on 12/[address] Xie with findings of gangrenous cholecystitis. LFT's improved and bilirubin/ lipase normalized in postop period. He was doing well at home until yesterday when he started to feel weak and had a fever of 100.4 with associated chills. No nausea or vomiting. Denies jaundice or change in urine. No abdominal pain. Bowels have been loose since surgery but just starting to firm up. CT scan showed periportal edema and LFT's are again elevated with t bili up to 2.5. Lipase is normal this time. Historian: patient Problem List Medical Problems: (1) Cholangitis Status: Acute Medical & Surgical History Past Medical History: other (atrial fibrillation with rvr) Past Surgical History: cholecystectomy Family History Family History: no pertinent family hx Social History Hx Tobacco Use In Past Year?: No Smoking Status: Former Smoker Drug Use: none Marital status: Housing status: lives with family Occupation status: employed Immunizations Have You Had Tetanus Vaccine: Unknown History of Pneumococcal: Unknown History Hepatitis B Vaccine: Unknown Allergies Allergies: Coded Allergies: Penicillins (Unverified Allergy, Unknown, RASH, 01/08/17) Medications Current Inpatient Medications Current Inpatient Medications Medications (Trade) Dose Ordered Sig/Melanie Route Start Time Stop Time Status Last Admin Dose Admin Ioversol (Optiray 320) 100 ml UD PRN IV 01/08/17 01:15 01/12/17 01:14 Metoprolol Tartrate 12.5 mg 12.5 mg BID PO 01/08/17 09:00 02/07/17 08:59 01/08/17 09:03 12.5 MG Ciprofloxacin/ Dextrose 400 mg/ Prmx 200 ml @ 100 mls/hr Q12H IV 01/08/17 14:00 01/18/17 13:59 Metronidazole/Prmx (Flagyl / Nss/ Premixed Nss) 100 ml @ 100 mls/hr Q8H IV 01/08/17 11:00 01/18/17 10:59 01/08/17 10:35 100 MLS/HR Ondansetron HCl (Zofran Inj) 4 mg Q6H PRN IV 01/08/17 03:30 02/07/17 03:29 Hydralazine HCl 10 mg 10 mg Q4H PRN IV. 01/08/17 03:30 02/07/17 03:29 Pantoprazole Sodium 40 mg/ Syringe 10 ml @ 5 mls/min DAILY@11 IV 01/08/17 11:00 02/07/17 10:59 01/08/17 10:35 5 MLS/MIN Potassium Chloride/Sodium Chloride 1,000 ml @ 100 mls/hr Q10H IV 01/08/17 04:45 02/07/17 04:44 01/08/17 05:24 100 MLS/HR Levothyroxine Sodium/Syringe (Synthroid Inj/ Syringe) 2.5 ml @ 2 mls/min DAILY@09 IV 01/08/17 09:00 02/07/17 08:59 01/08/17 09:04 2 MLS/MIN Morphine Sulfate (MoRPHine SULFATE INJ) 2 mg Q2H PRN IV 01/08/17 04:45 01/22/17 04:44 Morphine Sulfate (MoRPHine SULFATE INJ) 4 mg Q2H PRN IV 01/08/17 04:45 01/22/17 04:44 Review of Systems Review of Systems Constitutional: chills, fever, weakness Eyes: reports: no symptoms ENT: reports: no symptoms reported Cardiovascular: reports: no symptoms reported Respiratory: reports: no symptoms reported Gastrointestinal: no symptoms reported Genitourinary - Male: reports: no symptoms Musculoskeletal: no symptoms reported Integumentary: no symptoms reported Neurologic: reports: no symptoms Physical Exam Physical Exam General Appearance: + WD/WN, No distress Ears, Nose, Throat: + normal ENT inspection Neck: No abnormal inspection, No limited range of motion Respiratory: No abnormal breath sounds, No accessory muscle use, No decreased breath sounds, No respiratory distress Cardiovascular: No JVD, No diastolic murmur, No edema, No systolic murmur Abdomen: No abnormal bowel sounds, No distension, No guarding, No hernia, No tenderness Extremities: No abnormal range of motion, No edema Neurologic/Psychiatric: No abnormal engineer 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-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, No decreased LOC Skin Characteristics: No abnormal color, No cyanosis Diagnostics Labs Labs Results Past 24 Hours Test 01/07/17 23:15 01/07/17 23:37 01/08/17 08:41 01/08/17 08:47 Range/Units Urine Color DK YELLOW Urine Appearance CLEAR CLEAR Urine pH 5.5 4.5-7.5 Urine Specific [place] 1.014 1.000-1.030 Urine Protein NEG NEG Urine Glucose (UA) NEG NEG Urine Ketones NEG NEG Urine Occult Blood NEG NEG Urine Nitrite NEG NEG Urine Bilirubin NEG NEG Urine Urobilinogen NEG NEG Urine Leukocyte Esterase NEG NEG Urine WBC (Auto) 0 0-5 /hpf Urine RBC (Auto) 0-4 0-4 /hpf Urine Hyaline Casts (Auto) 0 0-5 /lpf Urine Epithelial Cells (Auto) 0-5 0-5 /lpf Urine Bacteria (Auto) NEG NEG White Blood Count 7.17 6.75 4.8-10.8 K/uL Red Blood Count 4.69 4.21 4.7-6.1 M/uL Hemoglobin 14.8 13.4 14.0-18.0 g/dL Hematocrit 43.6 39.5 42-52 % Mean Corpuscular Volume 93.0 93.8 80-100 fL Mean Corpuscular Hemoglobin 31.6 31.8 25-34 pg Mean Corpuscular Hemoglobin Concent 33.9 33.9 32-36 g/dl Platelet Count 189 160 130-400 K/uL Mean Platelet Volume 9.8 10.0 7.4-10.4 fL Neutrophils (%) (Auto) 83.5 79.0 % Lymphocytes (%) (Auto) 8.4 10.2 % Monocytes (%) (Auto) 7.3 9.8 % Eosinophils (%) (Auto) 0.4 0.6 % Basophils (%) (Auto) 0.1 0.1 % Neutrophils # (Auto) 5.99 5.33 1.4-6.5 K/uL Lymphocytes # (Auto) 0.60 0.69 1.2-3.4 K/uL Monocytes # (Auto) 0.52 0.66 0.11-0.59 K/uL Eosinophils # (Auto) 0.03 0.04 0-0.5 K/uL Basophils # (Auto) 0.01 0.01 0-0.2 K/uL RDW Standard Deviation 52.0 52.4 36.4-46.3 fL RDW Coefficient of Variation 15.3 15.4 11.5-14.5 % Immature Granulocyte % (Auto) 0.3 0.3 % Immature Granulocyte # (Auto) 0.02 0.02 0.00-0.02 K/uL Prothrombin Time 30.5 20.3 9.0-12.0 SECONDS Prothromb Time International Ratio 2.7 1.8 0.9-1.1 Activated Partial Thromboplast Time 39.4 21.0-31.0 SECONDS Partial Thromboplastin Ratio 1.5 Sodium Level 139 142 136-145 mmol/L Potassium Level 4.5 4.0 3.5-5.1 mmol/L Chloride Level 103 108 98-107 mmol/L Carbon Dioxide Level 30 24 21-32 mmol/L Anion Gap 6.0 10.0 3-11 mmol/L Blood Urea Nitrogen 14 9 7-18 mg/dl Creatinine 0.92 0.73 0.60-1.40 mg/dl Est Creatinine Clear Calc Drug Dose 63.0 79.4 ml/min Estimated GFR () 90.1 100.8 Estimated GFR (Non- 77.7 87.0 BUN/Creatinine Ratio 14.7 12.3 10-20 Random Glucose 141 103 70-99 mg/dl Calcium Level 8.6 8.0 8.5-10.1 mg/dl Total Bilirubin 2.5 1.6 0.2-1 mg/dl Direct Bilirubin 1.8 0-0.2 mg/dl Aspartate Amino Transf (AST/SGOT) 535 266 15-37 U/L Alanine Aminotransferase (ALT/SGPT) 473 343 12-78 U/L Alkaline Phosphatase 492 404 45-117 U/L Total Protein 7.2 6.1 6.4-8.2 gm/dl Albumin 3.2 2.7 3.4-5.0 gm/dl Lipase 234 135 73-393 U/L Lactic Acid Level 0.6 0.4-2.0 mmol/L Globulin 3.4 2.5-4.0 gm/dl Albumin/Globulin Ratio 0.8 0.9-2 Lab Interpretation Lab Interpretation: labs were reviewed Diagnostic Radiology Diagnostic Radiology CT scan reviewed: IMPRESSION: 1. Infiltration within the cholecystectomy bed which is a nonspecific finding in the early postoperative setting. No well-defined fluid collection. 2. Common bile duct not well visualized on this exam. No convincing evidence for biliary ductal dilatation. Suspected mild periportal edema. No peripancreatic infiltration. 3. Multiple diverticula of the second portion of the duodenum. Impression Assessment and Plan Assessment and Plan 81 yr old man previously admitted with gallstone pancreatitis, s/p lap angela for gangrenous cholecystitis, mrcp negative. Now with recurrent elevated liver function tests and fever/ chills concerning for cholangitis / cbd stone. Will need IV antibiotics and GI evaluation (previously has seen Dr. Shepard) for consideration of ercp. No indication for surgical intervention. Dr. Xie's team to take over tomorrow.
[2017-01-08 13:00] VITALS: BP 123/65; PULSE 63; TEMP 36.4
--- NOTE | 2017-01-08 13:22 | DIAGNOSTIC IMAGING REPORT ---
MRCP CLINICAL HISTORY: Abnormal liver function tests status post cholecystectomy COMPARISON STUDY: MRCP December 17, [address] of the abdomen and pelvis January 08, 2017. TECHNIQUE: Utilizing a 1.5 Yuliet magnet and heavily T2 weighted sequences, multiplanar, multi echo imaging of the upper abdomen was performed without intravenous contrast. FINDINGS: The caliber of the common bile duct is at the upper limits of normal status post cholecystectomy. The common bile measures 6 mm in caliber. The caliber of the common bile duct has slightly increased since MRCP of December 17, 2016 when it measured 4 mm. No definite common bile duct calculi are identified although the distal common bile duct is partially obscured due to motion artifact and adjacent duodenal diverticula. There is a 4 mm linear filling defect within the distal common bile duct. Mild infiltration within the operative bed is noted. There is no fluid collection within the operative bed. Note is made of a 1 cm suspected cyst within the medial segment of the left hepatic lobe. There is a 6.1 cm cyst arising from the lower pole the left kidney. The course and caliber of the main pancreatic duct is normal. There is no peripancreatic infiltration or fluid. A 1 cm T2 hyperintense lesion adjacent to the pancreatic neck is noted. IMPRESSION: 1. 4 mm linear filling defect within the distal common bile duct. Artifact is favored although a small calculus could have this imaging appearance. Distal CBD slightly obscured on this exam due to adjacent duodenal diverticula. Caliber of common bile duct at the upper limits of normal although caliber has slightly increased since MRCP of December 17, 2016. 2. Mild infiltration within the cholecystectomy bed, a nonspecific finding the early postoperative setting. No operative bed fluid collection. 3. Normal course and caliber of the main pancreatic duct. 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 Electronically signed by: Cisco Nava M.D. 01/08/2017 1:20 PM Dictated Date/Time: 01/08/2017 1:08 PM
[2017-01-08] MEDS ORDERED: CIPROFLOXACIN / D5W 400 MG in PREMIXED IN D5W 200 ML IV SCH (14:00)
--- NOTE | 2017-01-08 14:26 | Gastroenterology Progress Note ---
Progress Note Date of Service: Jan 08, 2017 Subjective Pt evaluation today including: conversation w/ patient, conversation w/ family (), physical exam, chart review (no outpt GI data in [facility] EMR. REviewed last hospital admit and this on in [facility] EMR), lab review, review of studies, review of inpatient medication list Medications Current Inpatient Medications Medications (Trade) Dose Ordered Sig/Melanie Route Start Time Stop Time Status Last Admin Dose Admin Ioversol (Optiray 320) 100 ml UD PRN IV 01/08/17 01:15 01/12/17 01:14 Metoprolol Tartrate 12.5 mg 12.5 mg BID PO 01/08/17 09:00 02/07/17 08:59 01/08/17 09:03 12.5 MG Ciprofloxacin/ Dextrose 400 mg/ Prmx 200 ml @ 100 mls/hr Q12H IV 01/08/17 14:00 01/18/17 13:59 01/08/17 13:46 100 MLS/HR Metronidazole/Prmx (Flagyl / Nss/ Premixed Nss) 100 ml @ 100 mls/hr Q8H IV 01/08/17 11:00 01/18/17 10:59 01/08/17 10:35 100 MLS/HR Ondansetron HCl (Zofran Inj) 4 mg Q6H PRN IV 01/08/17 03:30 02/07/17 03:29 Hydralazine HCl 10 mg 10 mg Q4H PRN IV. 01/08/17 03:30 02/07/17 03:29 Pantoprazole Sodium 40 mg/ Syringe 10 ml @ 5 mls/min DAILY@11 IV 01/08/17 11:00 02/07/17 10:59 01/08/17 10:35 5 MLS/MIN Potassium Chloride/Sodium Chloride 1,000 ml @ 100 mls/hr Q10H IV 01/08/17 04:45 02/07/17 04:44 01/08/17 05:24 100 MLS/HR Levothyroxine Sodium/Syringe (Synthroid Inj/ Syringe) 2.5 ml @ 2 mls/min DAILY@09 IV 01/08/17 09:00 02/07/17 08:59 01/08/17 09:04 2 MLS/MIN Morphine Sulfate (MoRPHine SULFATE INJ) 2 mg Q2H PRN IV 01/08/17 04:45 01/22/17 04:44 Morphine Sulfate (MoRPHine SULFATE INJ) 4 mg Q2H PRN IV 01/08/17 04:45 01/22/17 04:44 Objective Vital Signs Date Time Temp Pulse Resp B/P Pulse Ox O2 Delivery O2 Flow Rate FiO2 01/08/17 08:04 Room Air 01/08/17 07:57 36.8 78 16 123/80 97 Room Air 01/08/17 04:52 36.7 93 18 132/73 95 Room Air 01/08/17 02:43 110 20 125/75 96 Room Air 01/08/17 00:47 18 144/70 01/07/17 23:29 73 18 140/68 98 Room Air 01/07/17 21:48 37.2 94 18 162/76 96 Room Air Laboratory Results Last 24 Hours Test 01/07/17 23:15 01/07/17 23:37 01/08/17 08:41 01/08/17 08:47 Urine Color DK YELLOW Urine Appearance CLEAR Urine pH 5.5 Urine Specific [place] 1.014 Urine Protein NEG Urine Glucose (UA) NEG Urine Ketones NEG Urine Occult Blood NEG Urine Nitrite NEG Urine Bilirubin NEG Urine Urobilinogen NEG Urine Leukocyte Esterase NEG Urine WBC (Auto) 0 /hpf Urine RBC (Auto) 0-4 /hpf Urine Hyaline Casts (Auto) 0 /lpf Urine Epithelial Cells (Auto) 0-5 /lpf Urine Bacteria (Auto) NEG White Blood Count 7.17 K/uL 6.75 K/uL Red Blood Count 4.69 M/uL 4.21 M/uL Hemoglobin 14.8 g/dL 13.4 g/dL Hematocrit 43.6 % 39.5 % Mean Corpuscular Volume 93.0 fL 93.8 fL Mean Corpuscular Hemoglobin 31.6 pg 31.8 pg Mean Corpuscular Hemoglobin Concent 33.9 g/dl 33.9 g/dl Platelet Count 189 K/uL 160 K/uL Mean Platelet Volume 9.8 fL 10.0 fL Neutrophils (%) (Auto) 83.5 % 79.0 % Lymphocytes (%) (Auto) 8.4 % 10.2 % Monocytes (%) (Auto) 7.3 % 9.8 % Eosinophils (%) (Auto) 0.4 % 0.6 % Basophils (%) (Auto) 0.1 % 0.1 % Neutrophils # (Auto) 5.99 K/uL 5.33 K/uL Lymphocytes # (Auto) 0.60 K/uL 0.69 K/uL Monocytes # (Auto) 0.52 K/uL 0.66 K/uL Eosinophils # (Auto) 0.03 K/uL 0.04 K/uL Basophils # (Auto) 0.01 K/uL 0.01 K/uL RDW Standard Deviation 52.0 fL 52.4 fL RDW Coefficient of Variation 15.3 % 15.4 % Immature Granulocyte % (Auto) 0.3 % 0.3 % Immature Granulocyte # (Auto) 0.02 K/uL 0.02 K/uL Prothrombin Time 30.5 SECONDS 20.3 SECONDS Prothromb Time International Ratio 2.7 1.8 Activated Partial Thromboplast Time 39.4 SECONDS Partial Thromboplastin Ratio 1.5 Sodium Level 139 mmol/L 142 mmol/L Potassium Level 4.5 mmol/L 4.0 mmol/L Chloride Level 103 mmol/L 108 mmol/L Carbon Dioxide Level 30 mmol/L 24 mmol/L Anion Gap 6.0 mmol/L 10.0 mmol/L Blood Urea Nitrogen 14 mg/dl 9 mg/dl Creatinine 0.92 mg/dl 0.73 mg/dl Est Creatinine Clear Calc Drug Dose 63.0 ml/min 79.4 ml/min Estimated GFR () 90.1 100.8 Estimated GFR (Non- 77.7 87.0 BUN/Creatinine Ratio 14.7 12.3 Random Glucose 141 mg/dl 103 mg/dl Calcium Level 8.6 mg/dl 8.0 mg/dl Total Bilirubin 2.5 mg/dl 1.6 mg/dl Direct Bilirubin 1.8 mg/dl Aspartate Amino Transf (AST/SGOT) 535 U/L 266 U/L Alanine Aminotransferase (ALT/SGPT) 473 U/L 343 U/L Alkaline Phosphatase 492 U/L 404 U/L Total Protein 7.2 gm/dl 6.1 gm/dl Albumin 3.2 gm/dl 2.7 gm/dl Lipase 234 U/L 135 U/L Lactic Acid Level 0.6 mmol/L Globulin 3.4 gm/dl Albumin/Globulin Ratio 0.8 Assessment and Plan GI consult dictated job: [id number] Elevated LFTS--MRCP equivocal artifact versus stone in CBD. Since much improved follow these and will not schedule for ERCP at this point. In differential also are medication side effect such as from cipro and flagyl used on DC, also hepatitiis so check CMV, EBV, acute hep panel. nausea--related to process causing elevated LFTs most likely rash on abdomen--discussed with DR Rivera the hospitalist taking care of patient and mentioned maybe stopping cipro and flagyl or other new meds if any that could be causing. He states he will see patient and assess IPMN on MRCP--consider eventual EUS versus follow with MRI imaging as outpt duodenal diverticula--doubt causing elevated LFTs but would make ERCP difficult potentially elevated INR--hold coumadin in case will need invasive procedure this admit.
[2017-01-08 15:28] VITALS: BP 134/69; PULSE 61; TEMP 36.6; O2SAT 96
--- NOTE | 2017-01-08 16:19 | Progress Note ---
Subjective Date of Service: Jan 08, 2017. Subjective Pt evaluation today including: conversation w/ patient, conversation w/ family , physical exam, chart review, lab review, review of studies, conversation w/ customer service sales consultant, review of inpatient medication list Pain: no pain Voiding: no voiding problems, no incontinence Pt is seen and examined by me. Pt denies Cp, SOB, dizziness,palpitation, nausea , vomiting and diarrhea. pt denies blurry vision and headache. Pt did report a rash at the lower abdomen. Problem List Medical Problems: (1) Cholangitis Status: Acute Review of Systems Skin: + rash All Other Systems: Reviewed and Negative Medications Medications (Trade) Dose Ordered Sig/Melanie Route Start Time Stop Time Status Last Admin Dose Admin Sodium Chloride (Nss 1000ml) 1,000 ml @ 999 mls/hr Q1H1M STAT IV 01/07/17 22:59 01/07/17 23:59 DC 01/07/17 23:44 999 MLS/HR Ciprofloxacin/ Dextrose (Cipro / D5w) 400 mg NOW STAT IV 01/08/17 02:26 01/08/17 02:27 DC 01/08/17 05:24 400 MG Metronidazole (Flagyl / Nss) 500 mg NOW STAT IV 01/08/17 02:26 01/08/17 02:27 DC 01/08/17 02:42 500 MG Metoprolol Tartrate 12.5 mg 12.5 mg BID PO 01/08/17 09:00 02/07/17 08:59 01/08/17 09:03 12.5 MG Ciprofloxacin/ Dextrose 400 mg/ Prmx 200 ml @ 100 mls/hr Q12H IV 01/08/17 14:00 01/18/17 13:59 01/08/17 13:46 100 MLS/HR Metronidazole 500 mg/Prmx 100 ml @ 100 mls/hr Q8H IV 01/08/17 11:00 01/18/17 10:59 01/08/17 10:35 100 MLS/HR Pantoprazole Sodium 40 mg/ Syringe 10 ml @ 5 mls/min DAILY@11 IV 01/08/17 11:00 02/07/17 10:59 01/08/17 10:35 5 MLS/MIN Potassium Chloride/Sodium Chloride 1,000 ml @ 100 mls/hr Q10H IV 01/08/17 04:45 02/07/17 04:44 4/9/17 14:18 100 MLS/HR Phytonadione 10 mg/Sodium Chloride 51 ml @ 102 mls/hr NOW STAT IV 01/08/17 03:30 01/08/17 03:59 DC 01/08/17 04:29 102 MLS/HR Levothyroxine Sodium/Syringe (Synthroid Inj/ Syringe) 2.5 ml @ 2 mls/min DAILY@09 IV 01/08/17 09:00 02/07/17 08:59 01/08/17 09:04 2 MLS/MIN Objective Vital Signs Date Time Temp Pulse Resp B/P Pulse Ox O2 Delivery O2 Flow Rate FiO2 01/08/17 15:28 36.6 61 16 134/69 96 Room Air 01/08/17 13:00 36.4 63 16 123/65 Room Air 01/08/17 08:04 Room Air 01/08/17 07:57 36.8 78 16 123/80 97 Room Air 01/08/17 04:52 36.7 93 18 132/73 95 Room Air 01/08/17 02:43 110 20 125/75 96 Room Air 01/08/17 00:47 18 144/70 01/07/17 23:29 73 18 140/68 98 Room Air 01/07/17 21:48 37.2 94 18 162/76 96 Room Air Physical Exam General Appearance: WD/WN, no apparent distress Neck: supple Respiratory/Chest: lungs clear, no respiratory distress Cardiovascular: regular rate, rhythm, no edema, no murmur Abdomen: normal bowel sounds, soft, no organomegaly Extremities: normal range of motion, normal inspection, no calf tenderness Neurologic/Psychiatric: alert, normal mood/affect, oriented x 3 Skin: + pertinent finding (rash lower abd, erythematous and non itchy) Laboratory Results Last 24 Hours Test 01/07/17 23:15 01/07/17 23:37 01/08/17 08:41 01/08/17 08:47 Urine Color DK YELLOW Urine Appearance CLEAR Urine pH 5.5 Urine Specific [place] 1.014 Urine Protein NEG Urine Glucose (UA) NEG Urine Ketones NEG Urine Occult Blood NEG Urine Nitrite NEG Urine Bilirubin NEG Urine Urobilinogen NEG Urine Leukocyte Esterase NEG Urine WBC (Auto) 0 /hpf Urine RBC (Auto) 0-4 /hpf Urine Hyaline Casts (Auto) 0 /lpf Urine Epithelial Cells (Auto) 0-5 /lpf Urine Bacteria (Auto) NEG White Blood Count 7.17 K/uL 6.75 K/uL Red Blood Count 4.69 M/uL 4.21 M/uL Hemoglobin 14.8 g/dL 13.4 g/dL Hematocrit 43.6 % 39.5 % Mean Corpuscular Volume 93.0 fL 93.8 fL Mean Corpuscular Hemoglobin 31.6 pg 31.8 pg Mean Corpuscular Hemoglobin Concent 33.9 g/dl 33.9 g/dl Platelet Count 189 K/uL 160 K/uL Mean Platelet Volume 9.8 fL 10.0 fL Neutrophils (%) (Auto) 83.5 % 79.0 % Lymphocytes (%) (Auto) 8.4 % 10.2 % Monocytes (%) (Auto) 7.3 % 9.8 % Eosinophils (%) (Auto) 0.4 % 0.6 % Basophils (%) (Auto) 0.1 % 0.1 % Neutrophils # (Auto) 5.99 K/uL 5.33 K/uL Lymphocytes # (Auto) 0.60 K/uL 0.69 K/uL Monocytes # (Auto) 0.52 K/uL 0.66 K/uL Eosinophils # (Auto) 0.03 K/uL 0.04 K/uL Basophils # (Auto) 0.01 K/uL 0.01 K/uL RDW Standard Deviation 52.0 fL 52.4 fL RDW Coefficient of Variation 15.3 % 15.4 % Immature Granulocyte % (Auto) 0.3 % 0.3 % Immature Granulocyte # (Auto) 0.02 K/uL 0.02 K/uL Prothrombin Time 30.5 SECONDS 20.3 SECONDS Prothromb Time International Ratio 2.7 1.8 Activated Partial Thromboplast Time 39.4 SECONDS Partial Thromboplastin Ratio 1.5 Sodium Level 139 mmol/L 142 mmol/L Potassium Level 4.5 mmol/L 4.0 mmol/L Chloride Level 103 mmol/L 108 mmol/L Carbon Dioxide Level 30 mmol/L 24 mmol/L Anion Gap 6.0 mmol/L 10.0 mmol/L Blood Urea Nitrogen 14 mg/dl 9 mg/dl Creatinine 0.92 mg/dl 0.73 mg/dl Est Creatinine Clear Calc Drug Dose 63.0 ml/min 79.4 ml/min Estimated GFR () 90.1 100.8 Estimated GFR (Non- 77.7 87.0 BUN/Creatinine Ratio 14.7 12.3 Random Glucose 141 mg/dl 103 mg/dl Calcium Level 8.6 mg/dl 8.0 mg/dl Total Bilirubin 2.5 mg/dl 1.6 mg/dl Direct Bilirubin 1.8 mg/dl Aspartate Amino Transf (AST/SGOT) 535 U/L 266 U/L Alanine Aminotransferase (ALT/SGPT) 473 U/L 343 U/L Alkaline Phosphatase 492 U/L 404 U/L Total Protein 7.2 gm/dl 6.1 gm/dl Albumin 3.2 gm/dl 2.7 gm/dl Lipase 234 U/L 135 U/L Lactic Acid Level 0.6 mmol/L Globulin 3.4 gm/dl Albumin/Globulin Ratio 0.8 Assessment and Plan Acute cholecystitis/status post cholecystectomy during December 16 to December 23 presented with abnormal liver enzymes -- Gi on case. -- LFt trended downward -- will Dc antibiotics as per GI. -- Elevated LFTS--MRCP equivocal artifact versus stone in CBD. Since much improved follow these and will not schedule for ERCP at this point. -- also hepatitis, CMV, EBV can cause elevated LFt. Rash Lower Abdomen -- Could be secondary to antibiotics. -- Rash fade away and decrease inn size. Atrial fibrillation with RVR--continue metoprolol tartrate 12.5 mg by mouth twice a day, and diltiazem CD 180 mg by mouth daily. Hold warfarin for possible upcoming procedure. Hypothyroidism--change levothyroxine from 100 g by mouth daily to 50 g IV daily. Continued [facility] stay due to: other Discharge planning: home
[2017-01-08] MEDS ORDERED: NURSING VERBAL MED ORDER ONE (18:00)
[2017-01-08 22:55] VITALS: BP 121/68; PULSE 59; TEMP 36.4; O2SAT 97
--- NOTE | 2017-01-09 01:12 | GASTROINTESTINAL CONSULTATION ---
DATE OF CONSULTATION: 01/08/2017 REASON FOR CONSULTATION: Abnormal liver tests, status post cholecystectomy. CHIEF COMPLAINT: The patient has had nausea and fatigue. HISTORY OF PRESENT ILLNESS: The patient on review of the record was admitted in mid November of 2016 for gallstone pancreatitis. On 12/16/2016, he was admitted. At that time, his lipase was elevated at 4051 and LFTS were elevated. All the liver tests were back to normal by 12/23/2016 on discharge except the alk phos of 134. The patient's pancreatitis resolved. He underwent a cholecystectomy on 12/19/2016, mentioned he had a gangrenous gallbladder, no IOC was done at that time. The patient went home on Cipro and Flagyl. He had been off antibiotics about 5 days and over the last few days had low grade temperature up to 100.4 and some fatigue and some nausea. No abdominal pain, had loose stools while on antibiotics, now better. Again, really no abdominal pain, although he states he is "uncomfortable in his abdomen." No dysphagia, maybe lost 8 pounds over the course of all these problems. Some nausea, no vomiting. No history of liver disease. States he had no EGD in the past. Distant colonoscopy about 10 years ago that was unsuccessful, they could not get past part of the lower colon, he states it was not done before. The patient had an MRCP during his last admission on 12/17/2016, negative for bile or pathology. Abdomen and pelvic CTs this admission; cardiomegaly, status post cholecystectomy, duodenal diverticula, periportal edema. Chest x-ray showed cardiomegaly and MRCP this time showed artifact versus 4 mm filling defect in the distal common bile duct, duodenal diverticulum, 1 cm pancreatic neck IPMN. The patient on admission this time had elevated LFTs with total bilirubin 2.5, AST 535, ALT 473, alk phos 492, that was about midnight. By 08:45, his LFTs were starting to improve. Lipase this admission was normal. INR is elevated, but he is on Coumadin for AFib. PAST MEDICAL HISTORY: ALLERGIES TO PENICILLINS. MEDICATIONS ON ADMISSION: Diltiazem, Synthroid, Lopressor, Coumadin. He had been on antibiotics but not currently. PROBLEMS AND SURGERIES: Status post cholecystectomy, AFib, hypothyroidism. FAMILY HISTORY: Negative for liver disease. SOCIAL HISTORY: Tobacco negative, ethanol 1 glass of wine every day to every other day. REVIEW OF SYSTEMS: CONSTITUTIONAL: Negative except as above. EYES: Negative. EARS, NOSE, MOUTH, THROAT: Negative. CARDIOVASCULAR: Negative. RESPIRATORY: Negative. GENITOURINARY: Negative. MUSCULOSKELETAL: Negative. INTEGUMENTARY: Negative except as noted above. NEUROLOGIC: Negative except as noted above. PSYCHIATRIC: Negative except as noted above. ENDOCRINE: Negative except as noted above. HEMATOLOGIC: Negative except as noted above. PHYSICAL EXAMINATION: GENERAL: Male, appears stated age, in no acute distress. VITAL SIGNS: Most recent vital signs in the chart; temp 36.8, pulse 78, respirations 16, BP 123/80, O2 saturation 97% on room air. EYES: Conjunctivae and lids normal. ENT: Oropharynx is clear. NECK: Without obvious mass or thyroid enlargement. RESPIRATORY: Normal effort, clear to anterior auscultation. CARDIOVASCULAR: Regular rate and rhythm. EXTREMITIES: Without edema. ABDOMEN: Positive bowel sounds, soft, nontender. No obvious organomegaly or masses are appreciated. RECTAL: Not done. LYMPH: No obvious neck or groin nodes. MUSCULOSKELETAL: Digits and nails normal. SKIN: There is a red rash over his abdomen, nonpruritic. PSYCHIATRIC: Recent and remote memory good. Insight and judgment good. LABORATORY DATA: As above. IMPRESSION AND PLAN: 1. Elevated liver function tests. The magnetic resonance cholangiopancreatography has equivocal artifact for stone in the common bile duct. Since it is much improved, we will follow these and we will not schedule for endoscopic retrograde cholangiopancreatography at this point. Also in the differential of medication side effects, this is from Cipro and Flagyl he was on discharge, also hepatitis. Check cytomegalovirus, [place] virus, acute hepatitis panel. 2. Nausea, probably related to the process causing elevated liver function tests. 3. Rash on the abdomen. I discussed with Dr. Rivera, the hospitalist taking care of the patient, who mentioned maybe stopping Cipro and Flagyl or other new meds if any of that could be causing. He states he will the see patient and assess. 4. 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 Consider eventual endoscopic ultrasound versus follow with MRI imaging as an outpatient. 5. Duodenal diverticula, doubt causing elevated liver function tests, but would make endoscopic retrograde cholangiopancreatography difficult potentially. 6. Elevated INR. Hold Coumadin, in case he will need invasive procedure this admission. JENAE
[2017-01-09 07:39] LABS: BASO % 0.2 %; BASO ABS # 0.01 K/uL (0-0.2); COMPLETE YES; EOS % 2.4 %; HEMATOCRIT 39.5 % (42-52); IG% 0.2 %; LYMPH % 19.7 %; MEAN CELL VOLUME 93.2 fL (80-100); MEAN CORPUSCULAR HEMOGLOBIN 31.1 pg (25-34); MEAN CORPUSCULAR HGB CONC 33.4 g/dl (32-36); MONO % 8.3 %; NEUT % 69.2 %; PLATELET COUNT 150 K/uL (130-400); RED BLOOD COUNT 4.24 M/uL (4.7-6.1); WHITE BLOOD COUNT 4.57 K/uL (4.8-10.8)
[2017-01-09 07:51] LABS: INR 1.2 (0.9-1.1); PARTIAL THROMBOPLASTIN RATIO 1.2; PROTHROMBIN TIME (PATIENT) 12.7 SECONDS (9.0-12.0)
[2017-01-09 07:58] VITALS: BP 144/80; PULSE 68; TEMP 36.6; O2SAT 95
--- NOTE | 2017-01-09 08:00 | Surgery Progress Note ---
Surgery Progress Note Date of Service Jan 09, 2017. Subjective No nausea, No vomiting feeling better labs improved, possible defect on MRCP Objective Vital Signs: Date Time Temp Pulse Resp B/P Pulse Ox O2 Delivery O2 Flow Rate FiO2 01/09/17 07:30 Room Air 01/08/17 23:15 Room Air 01/08/17 22:55 36.4 59 16 121/68 97 Room Air 01/08/17 15:34 Room Air 01/08/17 15:28 36.6 61 16 134/69 96 Room Air 01/08/17 13:00 36.4 63 16 123/65 Room Air 01/08/17 08:04 Room Air 01/08/17 07:57 36.8 78 16 123/80 97 Room Air General Appearance: no apparent distress Respiratory/Chest: no respiratory distress Abdomen: non distended (eschar Rt abd removed- min purulence- some surrounding erythema), soft Laboratory Results: Results Past 24 Hours Test 01/08/17 08:41 01/08/17 08:47 01/09/17 07:16 Range/Units Lactic Acid Level 0.6 0.4-2.0 mmol/L White Blood Count 6.75 4.57 4.8-10.8 K/uL Red Blood Count 4.21 4.24 4.7-6.1 M/uL Hemoglobin 13.4 13.2 14.0-18.0 g/dL Hematocrit 39.5 39.5 42-52 % Mean Corpuscular Volume 93.8 93.2 80-100 fL Mean Corpuscular Hemoglobin 31.8 31.1 25-34 pg Mean Corpuscular Hemoglobin Concent 33.9 33.4 32-36 g/dl Platelet Count 160 150 130-400 K/uL Mean Platelet Volume 10.0 10.0 7.4-10.4 fL Neutrophils (%) (Auto) 79.0 69.2 % Lymphocytes (%) (Auto) 10.2 19.7 % Monocytes (%) (Auto) 9.8 8.3 % Eosinophils (%) (Auto) 0.6 2.4 % Basophils (%) (Auto) 0.1 0.2 % Neutrophils # (Auto) 5.33 3.16 1.4-6.5 K/uL Lymphocytes # (Auto) 0.69 0.90 1.2-3.4 K/uL Monocytes # (Auto) 0.66 0.38 0.11-0.59 K/uL Eosinophils # (Auto) 0.04 0.11 0-0.5 K/uL Basophils # (Auto) 0.01 0.01 0-0.2 K/uL RDW Standard Deviation 52.4 51.5 36.4-46.3 fL RDW Coefficient of Variation 15.4 15.0 11.5-14.5 % Immature Granulocyte % (Auto) 0.3 0.2 % Immature Granulocyte # (Auto) 0.02 0.01 0.00-0.02 K/uL Prothrombin Time 20.3 12.7 9.0-12.0 SECONDS Prothromb Time International Ratio 1.8 1.2 0.9-1.1 Sodium Level 142 136-145 mmol/L Potassium Level 4.0 3.5-5.1 mmol/L Chloride Level 108 98-107 mmol/L Carbon Dioxide Level 24 21-32 mmol/L Anion Gap 10.0 3-11 mmol/L Blood Urea Nitrogen 9 7-18 mg/dl Creatinine 0.73 0.60-1.40 mg/dl Est Creatinine Clear Calc Drug Dose 79.4 ml/min Estimated GFR () 100.8 Estimated GFR (Non- 87.0 BUN/Creatinine Ratio 12.3 10-20 Random Glucose 103 70-99 mg/dl Calcium Level 8.0 8.5-10.1 mg/dl Total Bilirubin 1.6 0.2-1 mg/dl Aspartate Amino Transf (AST/SGOT) 266 15-37 U/L Alanine Aminotransferase (ALT/SGPT) 343 12-78 U/L Alkaline Phosphatase 404 45-117 U/L Total Protein 6.1 6.4-8.2 gm/dl Albumin 2.7 3.4-5.0 gm/dl Globulin 3.4 2.5-4.0 gm/dl Albumin/Globulin Ratio 0.8 0.9-2 Lipase 135 73-393 U/L Activated Partial Thromboplast Time 31.0 21.0-31.0 SECONDS Partial Thromboplastin Ratio 1.2 Assessment & Plan 01/09/17- seems to be improved- wbc normal, following LFTs- pending this am wound care for Rt abd site ordered. Diet per GI team. Cont atbx. Could have passed debris from CBD, may need ERCP at some point.
[2017-01-09 08:13] LABS: ALB/GLOB RATIO 0.7 (0.9-2); BUN/CREATININE RATIO 13.1 (10-20); CALCIUM 8.3 mg/dl (8.5-10.1); CREATININE 0.71 mg/dl (0.60-1.40); MAGNESIUM 1.9 mg/dl (1.8-2.4); POTASSIUM 4.3 mmol/L (3.5-5.1)
[2017-01-09 08:14] VITALS: O2SAT 95
[2017-01-09] MEDS ORDERED: NURSING VERBAL MED ORDER ONE (08:45)
[2017-01-09] MEDS: METOPROLOL TARTRATE 25 MG TAB PO SCH ×2 (09:05→21:12)
[2017-01-09] MEDS: LEVOTHYROXINE SODIUM INJ 50 MCG in SYRINGE 0 ML IV SCH (09:06)
[2017-01-09] MEDS: BACITRACIN OINT 15 GM TUBE EXT SCH ×2 (10:02→21:12)
[2017-01-09] MEDS: NSS + 20MEQ KCL 1000ML 1,000 ML IV SCH ×2 (10:04→21:12)
[2017-01-09] MEDS: PANTOprazole INJ 40 MG in SYRINGE 0 ML IV SCH (11:13)
--- NOTE | 2017-01-09 14:50 | PROGRESS NOTE ---
DATE: 01/09/2017 SUBJECTIVELY: The patient is feeling well and his rash is resolved. HISTORY OF PRESENT ILLNESS: The patient underwent laparoscopic cholecystectomy on December 19 for a gangrenous gallbladder. Intraoperative cholangiogram was not performed at that time but a previous MRCP did not reveal any obvious stones. His liver tests were slightly abnormal prior to the surgery but resolved following resection of the gallbladder. The patient was on Cipro and Flagyl and presents to the hospital with nausea and fatigue and was found to have worsening liver tests with a bilirubin of 4.2. Repeated MRCP again and was not definitive for showing any stones, although distal common bile duct was not well visualized. Since being hospitalized, his liver tests have improved significantly. Currently, his bilirubin is down to 1.3, alkaline phosphatase is 318 and aminotransferases which were in the 400-500 range, are in the 100-200 range at this time. PHYSICAL EXAMINATION: VITAL SIGNS: The patient's vital signs are normal. ABDOMEN: Shows laparoscopic incisions one with a bandage on the right flank area. There are no masses or tenderness. IMPRESSION: The patient has abnormal liver tests, following cholecystectomy his labs are improving. Differential diagnosis would include some sludge in his bile duct, passing a small stone or he may have a retained stone or it could be that the antibiotics caused his rash and abnormal liver tests and since they have been stopped his liver tests are improving. At this point, I would prefer not to proceed with an ERCP unless is absolutely necessary. If he does not improve continually, then we would consider doing an endoscopic ultrasound to see if there is indeed a stone in the distal common bile duct and then we would know for sure that the ERCP would be necessary, but for now, will continue to monitor him. If he continues to improve, then no further intervention would be needed, if he worsens then we would consider an endoscopic ultrasound with Dr. Busch. This plan was discussed with the patient who concurs. JENAE
[2017-01-09 15:52] VITALS: BP 153/67; PULSE 69; TEMP 36.6; O2SAT 97
[2017-01-09 23:20] VITALS: BP 156/72; PULSE 58; TEMP 36.9; O2SAT 97
[2017-01-09] MEDS: HydrALAZINE HCL 20 MG/ML VIAL IV. PRN (23:24)
[2017-01-10 04:00] VITALS: BP 149/86; PULSE 76
[2017-01-10] MEDS: NSS + 20MEQ KCL 1000ML 1,000 ML IV SCH (05:22)
--- NOTE | 2017-01-10 06:35 | Surgery Progress Note ---
Surgery Progress Note Date of Service Jan 10, 2017. Subjective + feeling well ("I really felt good last night"- rested well), No nausea, No vomiting Objective Vital Signs: Date Time Temp Pulse Resp B/P Pulse Ox O2 Delivery O2 Flow Rate FiO2 01/10/17 04:00 76 149/86 01/09/17 23:20 36.9 58 18 156/72 97 Room Air 01/09/17 23:15 Room Air 01/09/17 15:52 36.6 69 18 153/67 97 Room Air 01/09/17 15:46 Room Air 01/09/17 08:14 95 Room Air 01/09/17 07:58 36.6 68 20 144/80 95 Room Air 01/09/17 07:30 Room Air General Appearance: no apparent distress Respiratory/Chest: no respiratory distress Abdomen: non tender, soft Laboratory Results: Results Past 24 Hours Test 01/09/17 07:16 01/10/17 04:44 Range/Units White Blood Count 4.57 4.8-10.8 K/uL Red Blood Count 4.24 4.7-6.1 M/uL Hemoglobin 13.2 14.0-18.0 g/dL Hematocrit 39.5 42-52 % Mean Corpuscular Volume 93.2 80-100 fL Mean Corpuscular Hemoglobin 31.1 25-34 pg Mean Corpuscular Hemoglobin Concent 33.4 32-36 g/dl Platelet Count 150 130-400 K/uL Mean Platelet Volume 10.0 7.4-10.4 fL Neutrophils (%) (Auto) 69.2 % Lymphocytes (%) (Auto) 19.7 % Monocytes (%) (Auto) 8.3 % Eosinophils (%) (Auto) 2.4 % Basophils (%) (Auto) 0.2 % Neutrophils # (Auto) 3.16 1.4-6.5 K/uL Lymphocytes # (Auto) 0.90 1.2-3.4 K/uL Monocytes # (Auto) 0.38 0.11-0.59 K/uL Eosinophils # (Auto) 0.11 0-0.5 K/uL Basophils # (Auto) 0.01 0-0.2 K/uL RDW Standard Deviation 51.5 36.4-46.3 fL RDW Coefficient of Variation 15.0 11.5-14.5 % Immature Granulocyte % (Auto) 0.2 % Immature Granulocyte # (Auto) 0.01 0.00-0.02 K/uL Prothrombin Time 12.7 9.0-12.0 SECONDS Prothromb Time International Ratio 1.2 0.9-1.1 Activated Partial Thromboplast Time 31.0 21.0-31.0 SECONDS Partial Thromboplastin Ratio 1.2 Sodium Level 141 136-145 mmol/L Potassium Level 4.3 3.5-5.1 mmol/L Chloride Level 110 98-107 mmol/L Carbon Dioxide Level 22 21-32 mmol/L Anion Gap 9.0 3-11 mmol/L Blood Urea Nitrogen 9 7-18 mg/dl Creatinine 0.71 0.60-1.40 mg/dl Est Creatinine Clear Calc Drug Dose 81.6 ml/min Estimated GFR () 102.0 Estimated GFR (Non- 88.0 BUN/Creatinine Ratio 13.1 10-20 Random Glucose 70 70-99 mg/dl Calcium Level 8.3 8.5-10.1 mg/dl Magnesium Level 1.9 1.8-2.4 mg/dl Total Bilirubin 1.3 0.2-1 mg/dl Direct Bilirubin 0.3 0-0.2 mg/dl Aspartate Amino Transf (AST/SGOT) 106 15-37 U/L Alanine Aminotransferase (ALT/SGPT) 230 12-78 U/L Alkaline Phosphatase 318 45-117 U/L Total Protein 6.1 6.4-8.2 gm/dl Albumin 2.6 3.4-5.0 gm/dl Globulin 3.5 2.5-4.0 gm/dl Albumin/Globulin Ratio 0.7 0.9-2 Hepatitis B Surface Antigen NEG NEG Hepatitis C Antibody NEG NEG Monoscreen NEG NEG Assessment & Plan 01/10/17- improved, will adv diet, Dr Shepard's plan noted. Would cont. atbx po as outpt 7-10 days when d/c. Overall doing well. check labs 01/09/17- seems to be improved- wbc normal, following LFTs- pending this am wound care for Rt abd site ordered. Diet per GI team. Cont atbx. Could have passed debris from CBD, may need ERCP at some point. 01/09/17- seems to be improved- wbc normal, following LFTs- pending this am wound care for Rt abd site ordered. Diet per GI team. Cont atbx. Could have passed debris from CBD, may need ERCP at some point.
[2017-01-10 07:26] VITALS: BP 147/90; PULSE 70; TEMP 36.7; O2SAT 97
[2017-01-10 07:26] LABS: BASO % 0.3 %; BASO ABS # 0.01 K/uL (0-0.2); COMPLETE YES; EOS % 3.4 %; IG% 0.3 %; LYMPH % 18.8 %; LYMPH ABS # 0.73 K/uL (1.2-3.4); MEAN CELL VOLUME 92.2 fL (80-100); MEAN CORPUSCULAR HEMOGLOBIN 31.3 pg (25-34); MEAN CORPUSCULAR HGB CONC 33.9 g/dl (32-36); MEAN PLATELET VOLUME 9.9 fL (7.4-10.4); MONO % 11.6 %; NEUT % 65.6 %; PLATELET COUNT 153 K/uL (130-400); RED BLOOD COUNT 4.12 M/uL (4.7-6.1); WHITE BLOOD COUNT 3.88 K/uL (4.8-10.8)
[2017-01-10 07:36] LABS: INR 1.2 (0.9-1.1); PARTIAL THROMBOPLASTIN RATIO 1.2; PROTHROMBIN TIME (PATIENT) 12.9 SECONDS (9.0-12.0)
[2017-01-10 07:48] LABS: BUN/CREATININE RATIO 10.9 (10-20); CALCIUM 8.1 mg/dl (8.5-10.1); CREATININE 0.69 mg/dl (0.60-1.40); MAGNESIUM 1.7 mg/dl (1.8-2.4)
[2017-01-10] MEDS: BACITRACIN OINT 15 GM TUBE EXT SCH (08:06)
[2017-01-10] MEDS: METOPROLOL TARTRATE 25 MG TAB PO SCH (08:08)
[2017-01-10 08:10] VITALS: O2SAT 97
[2017-01-10] MEDS: LEVOTHYROXINE SODIUM INJ 50 MCG in SYRINGE 0 ML IV SCH (08:55)
[2017-01-10] MEDS: PANTOprazole INJ 40 MG in SYRINGE 0 ML IV SCH (11:32)
[2017-01-10 11:37] VITALS: BP 154/89; PULSE 70
--- NOTE | 2017-01-10 11:37 | Progress Note ---
Subjective Date of Service: Jan 09, 2017. Subjective Pt evaluation today including: conversation w/ patient, conversation w/ family , physical exam, chart review, lab review, review of studies, conversation w/ funeral pre need consultant, review of inpatient medication list Doing well, no complaining, Problem List Medical Problems: (1) Cholangitis Status: Acute Review of Systems Constitutional: + fatigue, No chills, No fever, No problem reported, No sweats , No weakness, No weight loss Eyes: No diplopia, No discharge, No eye pain, No redness, No worsening of vision ENT: No dental problems, No hearing loss, No nasal symptoms, No sore throat, No tinnitus, No trouble swallowing, No unusual epistaxis Respiratory: No cough, No dyspnea at rest, No dyspnea on exertion, No hemoptysis, No shortness of breath, No sputum, No wheezing Cardiac: No PND, No chest pain, No claudication, No edema, No orthopnea, No palpitations Abdomen: + pain, No constipation, No diarrhea, No nausea, No vomiting Musculoskeletal: No calf pain, No joint pain, No muscle pain, No swelling Male : No dysuria, No hematuria, No incontinence, No nocturia more than once/ night, No slowing stream, No urinary frequency Neurologic: No balance problems, No memory loss, No numbness/tingling, No paralysis, No vertigo, No weakness Psychiatric: No anhedonism, No anxiety, No depression symptoms, No insomnia, No substance abuse Heme: No abnormal bleeding/bruising, No clotting problems, No night sweats, No swollen lymph nodes Endo: No excessive thirst, No excessive urination, No fatigue Skin: No bleeding, No color change, No itch, No new/changing skin lesions, No rash Objective Vital Signs Date Time Temp Pulse Resp B/P Pulse Ox O2 Delivery O2 Flow Rate FiO2 01/10/17 08:10 97 Room Air 01/10/17 07:26 36.7 70 18 147/90 97 Room Air 01/10/17 04:00 76 149/86 01/09/17 23:20 36.9 58 18 156/72 97 Room Air 01/09/17 23:15 Room Air 01/09/17 15:52 36.6 69 18 153/67 97 Room Air 01/09/17 15:46 Room Air Physical Exam General Appearance: WD/WN, no apparent distress, + obese Eyes: normal inspection, PERRL, EOMI, sclerae normal ENT: normal ENT inspection, hearing grossly normal, pharynx normal Neck: supple, no adenopathy, thyroid normal, no JVD, no carotid bruits, trachea midline Respiratory/Chest: chest non-tender, lungs clear, normal breath sounds, no respiratory distress, no accessory muscle use Cardiovascular: regular rate, rhythm, no edema, no gallop, no JVD, no murmur Abdomen: normal bowel sounds, soft, no organomegaly, no pulsatile mass, + pertinent finding (RUQ mild tender) Extremities: normal range of motion, non-tender, normal inspection, no pedal edema, no calf tenderness, normal capillary refill, pelvis stable Neurologic/Psychiatric: 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 as tested, no motor/sensory deficits, alert, normal mood/affect, oriented x 3 Skin: normal color, warm/dry, no rash Lymphatic: no adenopathy Laboratory Results Last 24 Hours Test 01/10/17 07:18 White Blood Count 3.88 K/uL Red Blood Count 4.12 M/uL Hemoglobin 12.9 g/dL Hematocrit 38.0 % Mean Corpuscular Volume 92.2 fL Mean Corpuscular Hemoglobin 31.3 pg Mean Corpuscular Hemoglobin Concent 33.9 g/dl Platelet Count 153 K/uL Mean Platelet Volume 9.9 fL Neutrophils (%) (Auto) 65.6 % Lymphocytes (%) (Auto) 18.8 % Monocytes (%) (Auto) 11.6 % Eosinophils (%) (Auto) 3.4 % Basophils (%) (Auto) 0.3 % Neutrophils # (Auto) 2.55 K/uL Lymphocytes # (Auto) 0.73 K/uL Monocytes # (Auto) 0.45 K/uL Eosinophils # (Auto) 0.13 K/uL Basophils # (Auto) 0.01 K/uL RDW Standard Deviation 50.8 fL RDW Coefficient of Variation 14.9 % Immature Granulocyte % (Auto) 0.3 % Immature Granulocyte # (Auto) 0.01 K/uL Prothrombin Time 12.9 SECONDS Prothromb Time International Ratio 1.2 Activated Partial Thromboplast Time 30.3 SECONDS Partial Thromboplastin Ratio 1.2 Sodium Level 143 mmol/L Potassium Level 4.0 mmol/L Chloride Level 111 mmol/L Carbon Dioxide Level 24 mmol/L Anion Gap 8.0 mmol/L Blood Urea Nitrogen 8 mg/dl Creatinine 0.69 mg/dl Est Creatinine Clear Calc Drug Dose 84.0 ml/min Estimated GFR () 103.2 Estimated GFR (Non- 89.0 BUN/Creatinine Ratio 10.9 Random Glucose 88 mg/dl Calcium Level 8.1 mg/dl Magnesium Level 1.7 mg/dl Total Bilirubin 1.0 mg/dl Direct Bilirubin 0.4 mg/dl Aspartate Amino Transf (AST/SGOT) 50 U/L Alanine Aminotransferase (ALT/SGPT) 155 U/L Alkaline Phosphatase 250 U/L Total Protein 5.9 gm/dl Albumin 2.5 gm/dl Assessment and Plan Acute cholecystitis/status post cholecystectomy during December 16 to December 23 presented with abnormal liver enzymes -- Gi on case. -- LFt continue trended downward --Has Dc antibiotics as per GI. -- Elevated LFTS--MRCP equivocal artifact versus stone in CBD. Since much improved follow these and will not schedule for ERCP at this point. -- also hepatitis, CMV, EBV can cause elevated LFt. Rash Lower Abdomen -- Could be secondary to antibiotics. -- Rash fade away and decrease inn size. Atrial fibrillation with RVR--continue metoprolol tartrate 12.5 mg by mouth twice a day, and diltiazem CD 180 mg by mouth daily. Hold warfarin for possible upcoming procedure. Hypothyroidism--change levothyroxine from 100 g by mouth daily to 50 g IV daily. GI and DVT prophylaxis Continued [facility] stay due to: other Discharge planning: home
[2017-01-10] MEDS: HydrALAZINE HCL 20 MG/ML VIAL IV. PRN (11:40)
[2017-01-10] MEDS ORDERED: BCTO EXT (12:21)
[2017-01-10] MEDS ORDERED: CLC/300 PO (12:21)
--- NOTE | 2017-01-10 12:21 | Discharge Instructions ---
Discharge Instructions Date of Service Jan 10, 2017. Admission Reason for Admission: ABNORMAL LFTs, S/P CHOLECYSTECTOMY Discharge Discharge Diagnosis / Problem: abn LFT, . 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 Instructions / Follow-Up Instructions / Follow-Up you have recent Acute cholecystitis/status post cholecystectomy you have abnormal liver function test you had Rash in Lower Abdomen possible from cipro we are giving Clindamycin for 7 days, this medicine may cause severe diarrhea, you need to report to your pcp if have this problem. follow up with Dr. Shepard in 2-3 weeks, follow up with Dr. Xie in 2-3 week RN please give phone number for pt to call for appointment - you need to follow up with your primary care physician in 1 week, - take medication as instructed, never overdose or any misuse, or take with alcohol, because misuse of medicine may cause organ damage or , call your primary care physician if have questions of medicaitons. - call your primary care physician OR go to local emergency room if has any fever/chill, chest pain, shortness of breathing, nausea/vomiting/abdominal pain , facial droop/slurry speech/local weakness, or if has any questions. - fall precaution - diet as instructed - you need to follow up with your subspecialists - you should understand that it is important to follow up the above instruction , and "not following the above instruction" may cause delayed or missed care of your medical conditions which may cause permanent organ damage and even . Current Hospital Diet Patient's current hospital diet: Low Fat Diet Discharge Diet Recommended Diet: Low Fat Diet Pending Studies Studies pending at discharge: no Medical Emergencies . Who to Call and When: Medical Emergencies: If at any time you feel your situation is an emergency, please call 911 immediately. . Non-Emergent Contact Non-Emergency issues call your: Primary Care Provider . . "Provider Documentation" section prepared by Albert Altman. VTE Core Measure Inpt VTE Proph given/why not?: Warfarin (Coumadin), SCD's
[2017-01-10] MEDS ORDERED: CLINDAMYCIN HCL 150 MG CAP PO ONE (12:30)
[2017-01-10 12:37] VITALS: BP 154/89; PULSE 70; TEMP 36.7; O2SAT 97
--- NOTE | 2017-01-10 13:13 | Discharge Summary ---
Discharge Summary Date of Service Jan 10, 2017. Discharge Summary Admission Date: Jan 08, 2017 at 03:09 Discharge Date: Jan 10, 2017 Discharge Disposition: Home Principal Diagnosis: recent Acute cholecystitis/status post cholecystectomy Problems/Secondary Diagnoses: bnormal liver function test Immunizations: History of Tetanus Vaccine?: Unknown History of Pneumococcal: Unknown History of Hepatitis B Vaccine: Unknown Procedures: No Consultations: GI and surgeon Medication Reconciliation New Medications: Clindamycin HCl (Clindamycin HCl) 300 Mg Cap 1 CAP PO TID for 7 Days, #21 CAP Bacitracin (Bacitracin Zinc) 45 Appln/15 Gm Oint 1 APPLN EXT BID for 7 Days, #1 Continued Medications: Diltiazem Hcl Coated Beads (Diltiazem Cd) 180 Mg Cap 180 MG PO DAILY for 30 Days, #30 CAP 3 Refills Levothyroxine Sodium (Synthroid) 100 Mcg Tab 100 MCG PO DAILY, TAB Metoprolol Tartrate (Lopressor) 25 Mg Tab 12.5 MG PO BID, #60 TAB 3 Refills Warfarin Sod (Jantoven) 5 Mg Tab 2.5 MG PO 2XWK, TAB Monday, Warfarin Sod (Jantoven) 5 Mg Tab 5 MG PO 5XWK, TAB Discharge Exam Sitting up in chair, tolerate a low-fat diet Review of Systems: Constitutional: No chills, No fatigue, No fever, No problem reported, No sweats, No weakness, No weight loss Eyes: No diplopia, No discharge, No eye pain, No problem reported, No redness, No worsening of vision ENT: No dental problems, No hearing loss, No nasal symptoms, No problem reported, No sore throat, No tinnitus, No trouble swallowing, No unusual epistaxis Cardiovascular: No PND, No chest pain, No claudication, No edema, No orthopnea, No palpitations, No problem reported Abdomen: No GI bleeding, No constipation, No diarrhea, No nausea, No pain, No problem reported, No vomiting Neurologic: No balance problems, No memory loss, No numbness/tingling, No paralysis, No problem reported, No vertigo, No weakness Psychiatric: No anhedonism, No anxiety, No depression symptoms, No insomnia , No problem reported, No substance abuse Endocrine: No excessive thirst, No excessive urination, No fatigue, No problem reported Hematologic / Lymphatic: No abnormal bleeding/bruising, No clotting problems , No night sweats, No problem reported, No swollen lymph nodes Integumentary: No bleeding, No color change, No itch, No new/changing skin lesions, No problem reported, No rash Physical Exam: General Appearance: WD/WN, no apparent distress Eyes: normal inspection, PERRL, EOMI ENT: normal ENT inspection, hearing grossly normal, TMs normal Neck: supple, no adenopathy, thyroid normal, no JVD Respiratory/Chest: normal breath sounds, no respiratory distress, no accessory muscle use, + decreased breath sounds Cardiovascular: regular rate, rhythm, no edema, no gallop, no JVD, no murmur , normal peripheral pulses Abdomen / GI: normal bowel sounds, non tender, soft, no organomegaly, no pulsatile mass Extremities: normal inspection, no calf tenderness, normal capillary refill Neurologic/Psychiatric: senior qa 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 follow up with Dr. Shepard in 2-3 weeks, follow up with Dr. Xie in 2-3 week RN please give phone number for pt to call for appointment - you need to follow up with your primary care physician in 1 week, - take medication as instructed, never overdose or any misuse, or take with alcohol, because misuse of medicine may cause organ damage or , call your primary care physician if have questions of medicaitons. - call your primary care physician OR go to local emergency room if has any fever/chill, chest pain, shortness of breathing, nausea/vomiting/abdominal pain , facial droop/slurry speech/local weakness, or if has any questions. - fall precaution - diet as instructed - you need to follow up with your subspecialists - you should understand that it is important to follow up the above instruction , and "not following the above instruction" may cause delayed or missed care of your medical conditions which may cause permanent organ damage and even . Acute cholecystitis/status post cholecystectomy during December 16 to December 23 presented with abnormal liver enzymes -- Gi on case. -- LFt continue trended downward --Has Dc antibiotics, start new antibiotics after discussed with Dr. Xie, - Possibly about recommending patient allergic to penicillin, patient possible allergic to Cipro because of the rash - After discussed risk and benefit , I start to clindamycin for 7 days -- Elevated LFTS--MRCP equivocal artifact versus stone in CBD. Since much improved follow these and will not schedule for ERCP at this point. -- also hepatitis, CMV, EBV can cause elevated LFt. -- GI At this point, I would prefer not to proceed with an ERCP unless is absolutely necessary, or consider endoscopic ultrasound with Dr. Busch -- Patient continue to stable, has told him to follow-up with GI as outpatient Rash Lower Abdomen -- Could be secondary to antibiotics. -- Rash fade away and decrease inn size. Atrial fibrillation with RVR--continue metoprolol tartrate 12.5 mg by mouth twice a day, and diltiazem CD 180 mg by mouth daily. Hold warfarin for possible upcoming procedure. We'll restarted upon discharge Hypothyroidism--change levothyroxine from 100 g by mouth daily to 50 g IV daily. GI and DVT prophylaxis Total Time Spent: Greater than 30 minutes This includes examination of the patient, discharge planning, medication reconciliation, and communication with other providers. Discharge Instructions Please refer to the electronic Patient Visit Report (Discharge Instructions) for additional information. Additional Copies To Jose Ramon Ocampo M.D.; Marcos Shepard M.D.; Robles Xie M.D.
[2017-01-10] MEDS ORDERED: CLINDAMYCIN HCL 150 MG CAP PO SCH (14:00)
--- NOTE | 2017-01-11 15:13 | EDITING REQUIRED CODING QUERY ---
CODING QUERY To promote full compliance with coding requirements relating to patient care, provider participation is requested in all cases of clinical trials systems administrator uncertainty. Please assist us with the question(s) below: Coding Question(s): Patient postop from cholecystectomy several weeks ago admitted due to abnormal liver function labs. MRCP significant for filling defect within the CBD. Progress note indicates intraductal mucinous neoplasm, pancreatitis and cholangitis. Final Diagnosis documented on D/S as Abnormal Liver function labs. Please document the diagnosis, after study, to be chiefly responsible for this patients' inpatient stay. Thanks for your help! Manuelito Heller [facility] Physician's Response(s): Abdominal pain with abnormal liver function test possible from intraductal mucinous neoplasm, pancreatitis, or cholangitis Principal Diagnosis: "_that condition established after study, to be chiefly responsible for occasioning the admission of the patient to the hospital for care." Co-Existing Principal Diagnosis: "_when two or more diagnoses equally meet the criteria for principal diagnosis as determined by the circumstances of admission, diagnostic work up, and/or therapy provided, and the Alphabetic Index, Tabular List, or another coding guideline does not provide sequencing direction, any one of the diagnoses may be sequenced first." "When the physician has documented what appears to be a current diagnosis in the body of the record, but has not included the diagnosis in the final diagnostic statement, the physician should be asked whether the diagnosis should be added." (Source Coding [facility] 2 QTR90. p3-4)
[2017-01-12] MEDS ORDERED: SACC250C3 PO (11:20)
[2017-01-13 04:00] LABS: CYTOMEGALOVIRUS IGG AB <0.91; EBV EARLY ANTIGEN AB <0.91 INDEX; EPSTEIN BARR VIR CAPSID IGG <0.91 INDEX
[2017-04-18] MEDS ORDERED: DILT-113 PO (07:34)
[2017-05-04] MEDS ORDERED: CIPR1TAB10 PO (13:47)
[2017-05-04] MEDS ORDERED: HYDR-5688 PO (13:47)
[2017-05-05] MEDS ORDERED: CEPH500C2 PO (10:03)
== END 2017-01-10 14:00 | disposition home or self-care (01) | DRG 438 ==
LOC: ENRESERVDT → ENRESERVTM → C.EDB 21:45 → C.MSN 01-08 03:09
PROVIDERS: ADMIT Hospitalist; ATTEND Hospitalist
DX: D13.6 Benign neoplasm of pancreas (principal); K85.10 Biliary acute pancreatitis without necrosis or infection; K83.0 Cholangitis; I48.91 Unspecified atrial fibrillation; E03.9 Hypothyroidism, unspecified; L27.0 Generalized skin eruption due to drugs and medicaments taken internally; T36.95XA Adverse effect of unspecified systemic antibiotic, initial encounter; Y92.009 Unspecified place in unspecified non-institutional (private) residence as the place of occurrence of the external cause; Z79.01 Long term (current) use of anticoagulants; Z87.891 Personal history of nicotine dependence; Z88.0 Allergy status to penicillin; R94.5 Abnormal results of liver function studies; Z98.890 Other specified postprocedural states; Z51.81 Encounter for therapeutic drug level monitoring

== ENCOUNTER → 2017-01-16 | Outpatient (CLI) | payer BC ==
[~2017-01-16] MED LIST changes: +BCTO EXT; +CEPH500C2 PO; -CHOL400C10 PO; +CIPR1TAB10 PO; +CLC/300 PO; -CYAN100048 PO; +DILT-113 PO; +HYDR-5688 PO; +SACC250C3 PO
[2017-01-16 17:03] LABS: BASO % 0.1 %; BASO ABS # 0.01 K/uL (0-0.2); COMPLETE YES; EOS % 0.2 %; IG% 0.2 %; LYMPH % 6.9 %; LYMPH ABS # 0.64 K/uL (1.2-3.4); MEAN CELL VOLUME 93.6 fL (80-100); MEAN CORPUSCULAR HGB CONC 34.1 g/dl (32-36); MEAN PLATELET VOLUME 10.6 fL (7.4-10.4); MONO % 9.1 %; NEUT % 83.5 %; PLATELET COUNT 193 K/uL (130-400); RED BLOOD COUNT 4.38 M/uL (4.7-6.1); WHITE BLOOD COUNT 9.33 K/uL (4.8-10.8)
[2017-01-16 17:04] LABS: URINE APPEARANCE CLEAR (CLEAR); URINE BILIRUBIN NEG (NEG); URINE COLOR DK YELLOW; URINE NITRITE NEG (NEG); URINE SPECIFIC GRAVITY 1.019 (1.000-1.030); UROBILINOGEN NEG (NEG)
[2017-01-16 17:08] LABS: MANUAL MICROSCOPIC REQUIRED? NO; REVIEW REQ? NO
[2017-01-16 17:14] LABS: ALT/SGPT 156 U/L (12-78); AMYLASE 564 U/L (25-115); BLOOD UREA NITROGEN 19 mg/dl (7-18); BUN/CREATININE RATIO 17.1 (10-20); CALCIUM 8.7 mg/dl (8.5-10.1); CARBON DIOXIDE 26 mmol/L (21-32); CHLORIDE 103 mmol/L (98-107); GLUCOSE 163 mg/dl (70-99); POTASSIUM 3.9 mmol/L (3.5-5.1); SODIUM 137 mmol/L (136-145)
[2017-01-16 17:18] LABS: ALB/GLOB RATIO 0.7 (0.9-2); ALKALINE PHOSPHATASE 348 U/L (45-117); AST/SGOT 69 U/L (15-37)
== END | disposition home or self-care (01) ==
LOC: C.LABBC 15:24
PROVIDERS: ATTEND Internal Medicine
DX: R74.8 Abnormal levels of other serum enzymes (principal)

== ENCOUNTER 2017-01-17 09:52 | Inpatient (IN) | payer BC, OTHER ==
[~2017-01-17] VITALS: Ht 175.3 cm; Wt 74.1 kg
[~2017-01-17 09:52] MED LIST changes: -CEPH500C2 PO; -CIPR1TAB10 PO; -DILT-113 PO; -HYDR-5688 PO
--- NOTE | 2017-01-17 10:13 | EMERGENCY ROOM VISIT NOTE ---
History Report prepared by Andrea: Kyle España Under the Supervision of: Dr. Albert Vidal M.D. First contact with patient: 10:03 Chief Complaint: ABDOMINAL PAIN Stated Complaint: PANCREATITIS Nursing Triage Summary: Pt states PCP sent pt to r/o pancreatitis. Pt had gall bladder surgery 3 wks ago. Pt states, "My stomach just isn't quite right." Diffuse abd pain. Denies n/v/d. History of Present Illness The patient is an 81 year old male who presents to the Emergency Room with complaints of abnormal blood tests that were discovered prior to arrival today. He says that he saw Dr. Ocampo ([facility] [place]) yesterday and had blood tests done. The patient was notified today that the blood tests indicated pancreatitis , and was told to come here to be evaluated. The patient does not feel too badly currently, but he does complain of tiredness, an intermittent mild fever, and a feeling that his stomach "isn't right". He denies vomiting, shortness of breath, chest pain, or cough. The patient had a cholecystectomy 3 weeks ago, and recently had his antibiotic changes from Cipro/Flagyl to Clindamycin. He has lost around 7 pounds in the past few weeks. Source of History: patient, spouse/significant other Onset: Prior to arrival today Position: other (global - abnormal labs) Quality: other (indicative of pancreatitis) Associated Symptoms: + fatigue, + fevers, No SOB, No chest pain, No cough, No vomiting Note: Associated symptoms: "Stomach isn't right". Review of Systems See HPI for pertinent positives & negatives. A total of 10 systems reviewed and were otherwise negative. Past Medical & Surgical Medical Problems: (1) Abnormal LFTs (2) Acute cholecystitis (3) Acute pancreatitis (4) Atrial fibrillation with RVR (5) Choledocholithiasis Surgical Problems: (1) S/P cholecystectomy Family History No pertinent family history secondary to age Social History Smoking Status: Former Smoker Drug Use: none Marital Status: Housing Status: lives with family Occupation Status: employed Current/Historical Medications Scheduled Bacitracin (Bacitracin Zinc), 1 APPLN EXT BID Clindamycin HCl (Clindamycin HCl), 1 CAP PO TID Diltiazem Hcl Coated Beads (Diltiazem Cd), 180 MG PO DAILY Levothyroxine Sodium (Synthroid), 100 MCG PO DAILY Metoprolol Tartrate (Lopressor), 12.5 MG PO BID Saccharomyces Boulardii (Florastor), 1 CAP PO QID Miscellaneous Medications Warfarin Sod (Jantoven), PO Allergies Coded Allergies: Penicillins (Unverified Allergy, Unknown, RASH, 01/17/17) Physical Exam Vital Signs Date Time Temp Pulse Resp B/P Pulse Ox O2 Delivery O2 Flow Rate FiO2 01/17/17 09:58 36.8 98 20 138/71 94 Room Air Physical Exam GENERAL: Patient is unwell appearing and in mild distress. HEENT: No acute trauma, normocephalic atraumatic, mucous membranes moist, no nasal congestion, no scleral icterus. NECK: No stridor, no adenopathy, no meningismus, trachea is midline. LUNGS: No dyspnea. Clear to auscultation and equal bilaterally. No wheeze, no rhonchi. HEART: Regular rate and rhythm. No murmurs, rubs, gallops appreciated. ABDOMEN: Vague tenderness over epigastrium. Well-healing port scars in abdomen. Soft, bowel sounds positive, no masses appreciated, no peritonitis. BACK: No midline tenderness, no CVA tenderness EXTREMITIES: Normal motion all extremities, no cyanosis, no edema. NEUROLOGIC: Alert and oriented, no acute motor or sensory deficits, no focal weakness, cranial nerves grossly intact. SKIN: No rash, no jaundice, no diaphoresis. Medical Decision & Procedures Laboratory Results 01/17/17 10:36 Red Blood Count 4.33, Mean Corpuscular Volume 95.2, Mean Corpuscular Hemoglobin 30.9, Mean Corpuscular Hemoglobin Concent 32.5, Mean Platelet Volume 10.1, Neutrophils (%) (Auto) 86.8, Lymphocytes (%) (Auto) 5.8, Monocytes (%) (Auto) 7.1, Eosinophils (%) (Auto) 0.1, Basophils (%) (Auto) 0.0, Neutrophils # (Auto) 7.37, Lymphocytes # (Auto) 0.49, Monocytes # (Auto) 0.60, Eosinophils # (Auto) 0.01, Basophils # (Auto) 0.00 01/17/17 10:36 Test 01/17/17 10:36 White Blood Count 8.49 K/uL (4.8-10.8) Red Blood Count 4.33 M/uL (4.7-6.1) Hemoglobin 13.4 g/dL (14.0-18.0) Hematocrit 41.2 % (42-52) Mean Corpuscular Volume 95.2 fL (80-100) Mean Corpuscular Hemoglobin 30.9 pg (25-34) Mean Corpuscular Hemoglobin Concent 32.5 g/dl (32-36) Platelet Count 194 K/uL (130-400) Mean Platelet Volume 10.1 fL (7.4-10.4) Neutrophils (%) (Auto) 86.8 % Lymphocytes (%) (Auto) 5.8 % Monocytes (%) (Auto) 7.1 % Eosinophils (%) (Auto) 0.1 % Basophils (%) (Auto) 0.0 % Neutrophils # (Auto) 7.37 K/uL (1.4-6.5) Lymphocytes # (Auto) 0.49 K/uL (1.2-3.4) Monocytes # (Auto) 0.60 K/uL (0.11-0.59) Eosinophils # (Auto) 0.01 K/uL (0-0.5) Basophils # (Auto) 0.00 K/uL (0-0.2) RDW Standard Deviation 52.7 fL (36.4-46.3) RDW Coefficient of Variation 15.0 % (11.5-14.5) Immature Granulocyte % (Auto) 0.2 % Immature Granulocyte # (Auto) 0.02 K/uL (0.00-0.02) Prothrombin Time 29.7 SECONDS (9.0-12.0) Prothromb Time International Ratio 2.7 (0.9-1.1) Activated Partial Thromboplast Time 48.9 SECONDS (21.0-31.0) Partial Thromboplastin Ratio 1.9 Anion Gap 10.0 mmol/L (3-11) Est Creatinine Clear Calc Drug Dose 58.0 ml/min Estimated GFR () 81.4 Estimated GFR (Non- 70.3 BUN/Creatinine Ratio 13.3 (10-20) Calcium Level 8.5 mg/dl (8.5-10.1) Phosphorus Level 2.7 mg/dl (2.5-4.9) Magnesium Level 2.2 mg/dl (1.8-2.4) Total Bilirubin 1.0 mg/dl (0.2-1) Direct Bilirubin 0.3 mg/dl (0-0.2) Aspartate Amino Transf (AST/SGOT) 31 U/L (15-37) Alanine Aminotransferase (ALT/SGPT) 108 U/L (12-78) Alkaline Phosphatase 287 U/L (45-117) Total Creatine Kinase 17 U/L (39-308) Troponin I < 0.015 ng/ml (0-0.045) Total Protein 6.9 gm/dl (6.4-8.2) Albumin 2.8 gm/dl (3.4-5.0) Lipase 2272 U/L (73-393) Laboratory results as reviewed by me. ED Course 1005: The patient was evaluated in room B6. A complete history and physical exam was performed. 1040: I reevaluated the patient and he is feeling fine. His notes that she will not deal with any DO's. 1123: I discussed the patient with Dr. Devyn Montgomery gastroenterology - he feels that the patient needs to be admitted, and he will contact Dr. Busch about having an ERCP and ultrasound of the patient's pancreas. 1133: Upon reevaluation, the patient is resting comfortably. Discussed results and treatment plan with the patient. He verbalized understanding and agreement with the treatment plan. The patient will be evaluated for further management. 1135: I discussed the patient with Dr. Berry - [facility] administrator - he will evaluate the patient for further treatment. Medical Decision Differential: Cholecystitis, Gallbladder disfunction, Hepatic Disfunction, Gastritis/PUD, Pancreatitis, ACS, Aortic Pathology, amongst other pathologies entertained. 81 yr old male with recent gangrenous gallbladder removal followed by cholangitis. Had MRCP last week with inconclusive results as to whether biliary blockage, though there was possible IPMN noted in head of pancrease. Discharged with planned outpatient monitoring. Increasing abdominal discomfort thus PCP ordered abdo labs yesterday revealing bump in lipase. Lipase 2200 today which is improved from yesterday though still quite elevated. Discussed with primary GI provider who feels patient needs to come in to hospital for ERCP and likely US eval of mass. Patient without need for pain meds and stable throughout ED stay. Consults Time Called: 1120 Consulting Physician: Dr. Devyn Montgomery gastroenterology Returned Call: 1123 I discussed the patient with Dr. Devyn Montgomery gastroenterology - he feels that the patient needs to be admitted, and he will contact Dr. Busch about having an ERCP and ultrasound of the patient's pancreas. Additional Consults: Time Called: 1130 Consulted Physician: Dr. Jamal PAULSON campus administrator Returned Call: [phone] Additional Comments: I discussed the patient with Dr. Jamal PAULSON campus administrator - he will evaluate the patient for further treatment. Impression Primary Impression: Acute pancreatitis Scribe Attestation The scribe's documentation has been prepared under my direction and personally reviewed by me in its entirety. I confirm that the note above accurately reflects all work, treatment, procedures, and medical decision making performed by me. Departure Information Dispostion Being Evaluated By Hospitalist Referrals No Doctor, Assigned (PCP) Patient Instructions My [facility] Problem Qualifiers Primary Impression: Acute pancreatitis Pancreatitis type: unspecified pancreatitis type Acute pancreatitis complication: unspecified Qualified Codes: K85.90 - Acute pancreatitis without necrosis or infection, unspecified
[2017-01-17 10:53] LABS: COMPLETE YES; EOS % 0.1 %; HEMATOCRIT 41.2 % (42-52); IG% 0.2 %; LYMPH % 5.8 %; LYMPH ABS # 0.49 K/uL (1.2-3.4); MEAN CELL VOLUME 95.2 fL (80-100); MEAN CORPUSCULAR HEMOGLOBIN 30.9 pg (25-34); MEAN CORPUSCULAR HGB CONC 32.5 g/dl (32-36); MEAN PLATELET VOLUME 10.1 fL (7.4-10.4); MONO % 7.1 %; NEUT % 86.8 %; PLATELET COUNT 194 K/uL (130-400); RED BLOOD COUNT 4.33 M/uL (4.7-6.1); WHITE BLOOD COUNT 8.49 K/uL (4.8-10.8)
[2017-01-17 11:10] LABS: ALT/SGPT 108 U/L (12-78); AST/SGOT 31 U/L (15-37); BLOOD UREA NITROGEN 13 mg/dl (7-18); BUN/CREATININE RATIO 13.3 (10-20); CALCIUM 8.5 mg/dl (8.5-10.1); CARBON DIOXIDE 24 mmol/L (21-32); CHLORIDE 104 mmol/L (98-107); GLUCOSE 205 mg/dl (70-99); MAGNESIUM 2.2 mg/dl (1.8-2.4); POTASSIUM 3.7 mmol/L (3.5-5.1); SODIUM 138 mmol/L (136-145)
[2017-01-17 11:13] LABS: ALKALINE PHOSPHATASE 287 U/L (45-117); PHOSPHORUS 2.7 mg/dl (2.5-4.9)
[2017-01-17 11:14] LABS: INR 2.7 (0.9-1.1); PARTIAL THROMBOPLASTIN RATIO 1.9; PROTHROMBIN TIME (PATIENT) 29.7 SECONDS (9.0-12.0)
[2017-01-17] MEDS ORDERED: ACETAMINOPHEN 325 MG TAB PO PRN (11:45)
[2017-01-17] MEDS ORDERED: ONDANSETRON INJ 2 MG/ML 2 ML VIAL IV PRN (11:45)
[2017-01-17 11:54] VITALS: O2SAT 94; Ht 175.3 cm; Wt 74.1 kg
--- NOTE | 2017-01-17 12:32 | History and Physical ---
History & Physical Date & Time of Service: Jan 17, 2017 at 12:18 Chief Complaint: Pancreatitis Primary Care Physician: Jose Ramon Ocampo M.D. History of Present Illness Source: patient, family, hospital records 81 yo male with recent history of gangrenous gall bladder in late November with cholecystectomy complicated by pancreatitis. The patient also developed atrial fibrillation with RVR when he was acutely ill. He was discharged home on Cipro/ Flagyl and Cardizem, Metoprolol and Coumadin for the atrial fibrillation. He was subsequently re-admitted 2 weeks later with elevated LFT and abdominal pain and possible cholangitis. He was treated with antibiotics and discharged home on Clindamycin. He will finish the Clindamycin today. Over the past 2-3 days he has continued to have epigastric pain intermittently, worse with eating, better if he does not eat. No vomiting, he has been moving bowels with last BM yesterday, normal caliber and color. No fever or chills. In the ED his vitals were stable and he was afebrile. Normal WBC. LFT very slightly elevated and lipase was 2000, actually trending down from 5000 yesterday. The case was discussed with Dr. Shepard by the ED physician and he recommended ERCP and endo US tomorrow. Requested to admit patient. Patient in normal rhythm. He is scheduled to see Dr. Schuster this week with cardiology to discuss management of atrial fibrillation going forward. Past Medical/Surgical History s/p cholecystectomy Pancreatitis, gall stone Atrial fibrillation, paroxysmal Hypothyroidism Family History Multiple family members with gall bladder disease Social History Smoking Status: Former Smoker Drug Use: none Marital Status: Housing status: lives with family Occupational Status: employed Immunizations History of Tetanus Vaccine?: Unknown History of Pneumococcal: Unknown History of Hepatitis B Vaccine: Unknown Multi-Drug Resistant Organisms History of MDRO: No Allergies Coded Allergies: Penicillins (Unverified Allergy, Unknown, RASH, 01/17/17) Home Medications Scheduled Bacitracin (Bacitracin Zinc), 1 APPLN EXT BID Clindamycin HCl (Clindamycin HCl), 1 CAP PO TID Diltiazem Hcl Coated Beads (Diltiazem Cd), 180 MG PO DAILY Levothyroxine Sodium (Synthroid), 100 MCG PO DAILY Metoprolol Tartrate (Lopressor), 12.5 MG PO BID Saccharomyces Boulardii (Florastor), 1 CAP PO QID Miscellaneous Medications Warfarin Sod (Jantoven), PO Review of Systems Constitutional: No chills, No fatigue, No fever, No problem reported, No sweats , No weakness, No weight loss Eyes: No diplopia, No discharge, No eye pain, No problem reported, No redness, No worsening of vision ENT: No dental problems, No hearing loss, No nasal symptoms, No problem reported, No sore throat, No tinnitus, No trouble swallowing, No unusual epistaxis Respiratory: No cough, No dyspnea at rest, No dyspnea on exertion, No hemoptysis, No problem reported, No shortness of breath, No sputum, No wheezing Cardiovascular: No PND, No chest pain, No claudication, No edema, No orthopnea , No palpitations, No problem reported Abdomen: + pain (epigastric, worse with eating), No GI bleeding, No constipation, No diarrhea, No nausea, No vomiting Musculoskeletal: No calf pain, No joint pain, No muscle pain, No problem reported, No swelling Genitourinary - Male: No dysuria, No hematuria, No urinary frequency, No urinary urgency Neurologic: No balance problems, No memory loss, No numbness/tingling, No paralysis, No problem reported, No vertigo, No weakness Psychiatric: No anhedonism, No anxiety, No depression symptoms, No insomnia, No problem reported, No substance abuse Endocrine: No excessive thirst, No excessive urination, No fatigue, No problem reported Hematologic / Lymphatic: No abnormal bleeding/bruising, No clotting problems, No night sweats, No problem reported, No swollen lymph nodes Integumentary: No bleeding, No color change, No itch, No new/changing skin lesions, No problem reported, No rash Allergic / Immunologic: No environmental allergies, No food allergies, No frequent infections, No hives, No pet sensitivities, No poor healing, No problem reported, No prolonged convalescence, No seasonal allergies Physical Exam Vital Signs Date Time Temp Pulse Resp B/P Pulse Ox O2 Delivery O2 Flow Rate FiO2 01/17/17 11:54 94 Room Air 01/17/17 09:58 36.8 98 20 138/71 94 Room Air General Appearance: WD/WN, no apparent distress Head: normocephalic, atraumatic Eyes: normal inspection, EOMI, sclerae normal ENT: normal ENT inspection, hearing grossly normal, pharynx normal Neck: supple, no adenopathy, no JVD, trachea midline Respiratory/Chest: chest non-tender, lungs clear, normal breath sounds, no respiratory distress, no accessory muscle use Cardiovascular: regular rate, rhythm, no edema, no gallop, no JVD, no murmur, normal peripheral pulses Abdomen/GI: normal bowel sounds, soft, no organomegaly, + tenderness ( epigastric, no rebound or rigidity, no bruising on abdomen) Back: normal inspection, no CVA tenderness, no muscle spasm, normal range of motion Extremities/Musculoskelatal: normal inspection, no calf tenderness, normal capillary refill, no pedal edema, normal range of motion, pelvis stable Neurologic/Psych: early childhood worker II-XII nml as tested, no motor/sensory deficits, alert, normal mood/affect, normal reflexes, oriented x 3 Skin: normal color, warm/dry, no rash Lymphatic: no adenopathy Diagnostics Laboratory Results Results Past 24 Hours Test 01/17/17 10:36 Range/Units White Blood Count 8.49 4.8-10.8 K/uL Red Blood Count 4.33 4.7-6.1 M/uL Hemoglobin 13.4 14.0-18.0 g/dL Hematocrit 41.2 42-52 % Mean Corpuscular Volume 95.2 80-100 fL Mean Corpuscular Hemoglobin 30.9 25-34 pg Mean Corpuscular Hemoglobin Concent 32.5 32-36 g/dl Platelet Count 194 130-400 K/uL Mean Platelet Volume 10.1 7.4-10.4 fL Neutrophils (%) (Auto) 86.8 % Lymphocytes (%) (Auto) 5.8 % Monocytes (%) (Auto) 7.1 % Eosinophils (%) (Auto) 0.1 % Basophils (%) (Auto) 0.0 % Neutrophils # (Auto) 7.37 1.4-6.5 K/uL Lymphocytes # (Auto) 0.49 1.2-3.4 K/uL Monocytes # (Auto) 0.60 0.11-0.59 K/uL Eosinophils # (Auto) 0.01 0-0.5 K/uL Basophils # (Auto) 0.00 0-0.2 K/uL RDW Standard Deviation 52.7 36.4-46.3 fL RDW Coefficient of Variation 15.0 11.5-14.5 % Immature Granulocyte % (Auto) 0.2 % Immature Granulocyte # (Auto) 0.02 0.00-0.02 K/uL Prothrombin Time 29.7 9.0-12.0 SECONDS Prothromb Time International Ratio 2.7 0.9-1.1 Activated Partial Thromboplast Time 48.9 21.0-31.0 SECONDS Partial Thromboplastin Ratio 1.9 Sodium Level 138 136-145 mmol/L Potassium Level 3.7 3.5-5.1 mmol/L Chloride Level 104 98-107 mmol/L Carbon Dioxide Level 24 21-32 mmol/L Anion Gap 10.0 3-11 mmol/L Blood Urea Nitrogen 13 7-18 mg/dl Creatinine 1.00 0.60-1.40 mg/dl Est Creatinine Clear Calc Drug Dose 58.0 ml/min Estimated GFR () 81.4 Estimated GFR (Non- 70.3 BUN/Creatinine Ratio 13.3 10-20 Random Glucose 205 70-99 mg/dl Calcium Level 8.5 8.5-10.1 mg/dl Phosphorus Level 2.7 2.5-4.9 mg/dl Magnesium Level 2.2 1.8-2.4 mg/dl Total Bilirubin 1.0 0.2-1 mg/dl Direct Bilirubin 0.3 0-0.2 mg/dl Aspartate Amino Transf (AST/SGOT) 31 15-37 U/L Alanine Aminotransferase (ALT/SGPT) 108 12-78 U/L Alkaline Phosphatase 287 45-117 U/L Total Creatine Kinase 17 39-308 U/L Troponin I < 0.015 0-0.045 ng/ml Total Protein 6.9 6.4-8.2 gm/dl Albumin 2.8 3.4-5.0 gm/dl Lipase 2272 73-393 U/L Impression Assessment and Plan 81 yo male with recurrent epigastric pain and elevated lipase suggesting pancreatitis - Recurrent pancreatitis: likely related to either retained stone in bile duct or sludge/small stones consult GI, case already discussed with Dr. Shepard and Dr. Busch will see this afternoon plan for ERCP and possible endoscopic US tomorrow NPO after midnight, allow full liquid diet today AST and ALT minimally elevated, bilirubin normal complete Clindamycin today, no evidence of worsening cholangitis with normal WBC and afebrile NSS at 100cc/hr - Paroxysmal atrial fibrillation: normal rhythm on exam, continue Cardizem and metoprolol discussed with GI that INR 2.7, holding Coumadin, they will decide on Vitamin K for ERCP tomorrow - Hypothyroidism: synthroid - DVT proph: INR 2.7 Level of Care Med/Surg Advanced Directives Existing Living Will: Yes Existing Power of Country Printer: Yes Resuscitation Status FULL RESUSCITATION VTE Prophylaxis VTE Risk Assessment Done? Y/N: Yes Risk Level: Low Given or contraindicated: Warfarin (Coumadin) Additional Copies To Jose Ramon Ocampo M.D.
[2017-01-17 12:50] VITALS: O2SAT 99
[2017-01-17 13:35] VITALS: BP 153/78; PULSE 71; TEMP 37.2; O2SAT 97
[2017-01-17] MEDS: CLINDAMYCIN HCL 150 MG CAP PO SCH ×2 (14:08→21:56)
[2017-01-17] MEDS: NSS + 20MEQ KCL 1000ML 1,000 ML IV SCH (14:09)
[2017-01-17 15:20] VITALS: BP 137/72; PULSE 86; TEMP 37.2; O2SAT 96
--- NOTE | 2017-01-17 16:29 | GASTROINTESTINAL CONSULTATION ---
DATE OF CONSULTATION: 01/17/2017 DATE OF CONSULTATION: 01/17/2017. CHIEF COMPLAINT: Recurrent pancreatitis. HISTORY OF PRESENT ILLNESS: Mr. Rowe is an 81-year-old white male who recently underwent a laparoscopic cholecystectomy in late November for gallstone pancreatitis and gallstones. The patient has had 2 subsequent admissions for abdominal pain and pancreatitis. Just recently he was to have followup lab work and had it yesterday and was found to have an elevated lipase. He has been experiencing a sense of bloating and discomfort, although significant abdominal pain was not reported by him prior to this admission. The patient denies any hematemesis, coffee-ground emesis, fever or shaking chills. During his workup there had been some studies that perhaps suggested filling defects in the distal common bile duct, although may have been artifactual in nature. There is also report of a possible pancreatic cyst that may represent IPMN. The patient presented to the ER with an elevated lipase of 5000 yesterday and was admitted through the Emergency Room this morning. Dr. Shepard was contacted. PAST MEDICAL HISTORY: Includes cholecystectomy, pancreatitis, atrial fibrillation which is paroxysmal and recent diagnosis and hypothyroid. FAMILY HISTORY: Significant for gallbladder disease, although there are no reports of colorectal cancer. SOCIAL HISTORY: The patient smoked in the past and no longer does so. He occasionally uses alcoholic beverages, perhaps 1 drink every other day. He is . ALLERGIES: HE HAS ALLERGIES TO PENICILLIN. HOME MEDICATIONS: Include clindamycin, diltiazem, levothyroxine, Lopressor, and Florastor. The patient is on anticoagulation for the recently diagnosed atrial fibrillation. REVIEW OF SYSTEMS: Otherwise noncontributory based on 14-point exam except for mentioned above. The patient has no prior history of pancreatitis other than these recent events. There has been no weight loss associated with development of symptoms prior to the onset of his acute gallbladder gallstone pancreatitis and events of recent weeks. He denies any dysuria or hematuria. He has not had melena or bright red blood per rectum, diarrhea or constipation. PHYSICAL EXAMINATION: VITAL SIGNS: Today on admission, the patient was afebrile at 36.8, heart rate 98, respirations 20, blood pressure 138/71. GENERAL: The patient is awake, alert and oriented x3. HEAD, EYES, EARS, NOSE, AND THROAT: Sclerae are anicteric, conjunctiva moist. Oral mucosa moist. NECK: There is no cervical or supraclavicular adenopathy. I do not appreciate thyromegaly. HEART: Normal S1, S2. LUNGS: Clear to auscultation without rales, rhonchi or wheezes. ABDOMEN: Soft, nontender, without rebound or guarding. There is no hepatosplenomegaly. EXTREMITIES: Without clubbing, cyanosis or edema. There is no evidence of ascites or shifting dullness or no abdominal bruits are identified. LABORATORY STUDIES: On admission showed a white count of 8.5, hemoglobin 13.4, platelets 194,000. INR is elevated at 2.7. His renal function is satisfactory with a potassium 3.7, creatinine 1, BUN 13. His LFTs are elevated with a total and direct bilirubin of 1 and 0.3, with a normal AST at 31, ALT is elevated at 108 and alkaline phosphatase is mild to moderately elevated at 287. Cardiac enzymes were unrevealing. His lipase on ER visit was 2272 although was 5000 yesterday. I do not see any recent imaging studies from this hospitalization, but I have reviewed available imaging studies from his recent hospitalizations. There is a question of a filling defect versus artifact in the distal common bile duct and reports of a possible IPMN in the pancreas. I made the following recommendations: All of these symptoms appear to be of acute onset. However, with the recurrent pancreatitis that demonstrates elevated liver test, I believe recurrent gallstone pancreatitis may be a culprit with retained stones or sludge in the biliary tree. I believe it is reasonable for the patient to undergo ERCP tomorrow and will plan to do an interrogation of the bile duct to remove any stones, sludge or other abnormalities that may require brushing or stenting as necessary. At some point, endoscopic ultrasound may be reasonable if there is any suggestion of a pancreatic lesion such as a solid mass or cystic mass. However, I believe it is prudent to first clear the bile duct, allow the patient to resolve any residual inflammation that may be present and then consider endoscopic ultrasound in a few weeks as an outpatient. The patient will be made n.p.o. after midnight except for meds. We will need to carefully watch INR today and correct this as needed to an INR level of less than 1.8 if possible. This would be in anticipation of sphincterotomy for stone extraction. All questions answered. Thank you for allowing me to participate in this pleasant gentleman's care.
[2017-01-17 21:50] VITALS: BP 135/73; PULSE 82; O2SAT 95
[2017-01-17] MEDS: METOPROLOL TARTRATE 25 MG TAB PO SCH (21:54)
[2017-01-17 23:10] VITALS: BP 143/70; PULSE 84; TEMP 37; O2SAT 96
[2017-01-18] VITALS (9 sets, daily range): BP systolic 123–148; BP diastolic 65–83; PULSE 54–79; TEMP 36.3–37; O2SAT 93–96
[2017-01-18] MEDS: NSS + 20MEQ KCL 1000ML 1,000 ML IV SCH ×3 (00:09→21:34)
[2017-01-18] MEDS: CLINDAMYCIN HCL 150 MG CAP PO SCH (06:02)
[2017-01-18] MEDS: LEVOTHYROXINE 100 MCG TAB PO SCH (06:02)
[2017-01-18 06:16] LABS: BASO % 0.1 %; BASO ABS # 0.01 K/uL (0-0.2); COMPLETE YES; EOS % 0.4 %; HEMATOCRIT 38.9 % (42-52); IG% 0.1 %; LYMPH % 10.9 %; LYMPH ABS # 0.88 K/uL (1.2-3.4); MEAN CELL VOLUME 95.1 fL (80-100); MEAN CORPUSCULAR HGB CONC 33.7 g/dl (32-36); MEAN PLATELET VOLUME 9.8 fL (7.4-10.4); MONO % 8.5 %; PLATELET COUNT 180 K/uL (130-400); RED BLOOD COUNT 4.09 M/uL (4.7-6.1); WHITE BLOOD COUNT 8.08 K/uL (4.8-10.8)
[2017-01-18 06:31] LABS: INR 2.6 (0.9-1.1); PROTHROMBIN TIME (PATIENT) 28.5 SECONDS (9.0-12.0)
[2017-01-18 07:11] LABS: BUN/CREATININE RATIO 11.6 (10-20); CALCIUM 8.6 mg/dl (8.5-10.1); CREATININE 0.73 mg/dl (0.60-1.40); MAGNESIUM 2.1 mg/dl (1.8-2.4); POTASSIUM 4.2 mmol/L (3.5-5.1)
[2017-01-18] MEDS: DILTIAZEM HCL 180 MG CAPCR PO SCH (09:14)
[2017-01-18] MEDS: METOPROLOL TARTRATE 25 MG TAB PO SCH ×2 (09:14→21:34)
[2017-01-18] MEDS ORDERED: PHYTONADIONE INJ 5 MG in SODIUM CHLORIDE 0.9% 50ML 50 ML IV STA (10:00)
--- NOTE | 2017-01-18 14:05 | Progress Note ---
Subjective Date of Service: Jan 18, 2017. Subjective pt feels somewhat improved, is ambulating in room, present all questions answered Problem List Medical Problems: (1) Cholangitis Status: Acute Review of Systems Constitutional: No chills, No fever Respiratory: No cough, No shortness of breath Cardiac: No chest pain, No edema Abdomen: + nausea, + pain, No diarrhea, No vomiting Male : No dysuria, No urinary frequency Psychiatric: No anhedonism, No depression symptoms Objective Vital Signs Date Time Temp Pulse Resp B/P Pulse Ox O2 Delivery O2 Flow Rate FiO2 01/18/17 07:26 36.8 75 16 148/83 96 Room Air 01/17/17 23:10 37.0 84 16 143/70 96 Room Air 01/17/17 23:00 Room Air 01/17/17 21:50 82 135/73 95 Room Air 01/17/17 15:30 Room Air 01/17/17 15:20 37.2 86 18 137/72 96 Room Air 01/17/17 13:35 Room Air 01/17/17 13:35 37.2 71 16 153/78 97 Room Air 01/17/17 12:50 77 129/81 99 01/17/17 11:54 94 Room Air 01/17/17 09:58 36.8 98 20 138/71 94 Room Air Physical Exam General Appearance: WD/WN, + mild distress Neck: supple, thyroid normal Respiratory/Chest: chest non-tender, lungs clear, normal breath sounds Cardiovascular: regular rate, rhythm, no murmur Abdomen: soft, + guarding, + tenderness Extremities: no pedal edema, no calf tenderness Laboratory Results Last 24 Hours Test 01/17/17 10:36 01/18/17 06:00 White Blood Count 8.49 K/uL 8.08 K/uL Red Blood Count 4.33 M/uL 4.09 M/uL Hemoglobin 13.4 g/dL 13.1 g/dL Hematocrit 41.2 % 38.9 % Mean Corpuscular Volume 95.2 fL 95.1 fL Mean Corpuscular Hemoglobin 30.9 pg 32.0 pg Mean Corpuscular Hemoglobin Concent 32.5 g/dl 33.7 g/dl Platelet Count 194 K/uL 180 K/uL Mean Platelet Volume 10.1 fL 9.8 fL Neutrophils (%) (Auto) 86.8 % 80.0 % Lymphocytes (%) (Auto) 5.8 % 10.9 % Monocytes (%) (Auto) 7.1 % 8.5 % Eosinophils (%) (Auto) 0.1 % 0.4 % Basophils (%) (Auto) 0.0 % 0.1 % Neutrophils # (Auto) 7.37 K/uL 6.46 K/uL Lymphocytes # (Auto) 0.49 K/uL 0.88 K/uL Monocytes # (Auto) 0.60 K/uL 0.69 K/uL Eosinophils # (Auto) 0.01 K/uL 0.03 K/uL Basophils # (Auto) 0.00 K/uL 0.01 K/uL RDW Standard Deviation 52.7 fL 52.6 fL RDW Coefficient of Variation 15.0 % 15.0 % Immature Granulocyte % (Auto) 0.2 % 0.1 % Immature Granulocyte # (Auto) 0.02 K/uL 0.01 K/uL Prothrombin Time 29.7 SECONDS 28.5 SECONDS Prothromb Time International Ratio 2.7 2.6 Activated Partial Thromboplast Time 48.9 SECONDS Partial Thromboplastin Ratio 1.9 Sodium Level 138 mmol/L 138 mmol/L Potassium Level 3.7 mmol/L 4.2 mmol/L Chloride Level 104 mmol/L 107 mmol/L Carbon Dioxide Level 24 mmol/L 24 mmol/L Anion Gap 10.0 mmol/L 7.0 mmol/L Blood Urea Nitrogen 13 mg/dl Creatinine 1.00 mg/dl 0.73 mg/dl Est Creatinine Clear Calc Drug Dose 58.0 ml/min 79.4 ml/min Estimated GFR () 81.4 100.8 Estimated GFR (Non- 70.3 87.0 BUN/Creatinine Ratio 13.3 11.6 Random Glucose 205 mg/dl 108 mg/dl Calcium Level 8.5 mg/dl 8.6 mg/dl Phosphorus Level 2.7 mg/dl Magnesium Level 2.2 mg/dl 2.1 mg/dl Total Bilirubin 1.0 mg/dl 1.0 mg/dl Direct Bilirubin 0.3 mg/dl 0.3 mg/dl Aspartate Amino Transf (AST/SGOT) 31 U/L 20 U/L Alanine Aminotransferase (ALT/SGPT) 108 U/L 80 U/L Alkaline Phosphatase 287 U/L 236 U/L Total Creatine Kinase 17 U/L Troponin I < 0.015 ng/ml Total Protein 6.9 gm/dl 6.7 gm/dl Albumin 2.8 gm/dl 2.7 gm/dl Lipase 2272 U/L 701 U/L Assessment and Plan 81 yo male with recurrent epigastric pain and elevated lipase suggesting pancreatitis, this following recent cholecystectomy for gangrenous cholecystitis and then readmission for cholangitis - Recurrent pancreatitis: likely related to either retained stone in bile duct or sludge/small stones consult GI, case already discussed with Dr. Shepard and Dr. Busch with plan for ERCP and possible endoscopic US completed clindamycin, follow for clinical signs of infection MRCP comments of possible IPMN seen - Paroxysmal atrial fibrillation: normal rhythm on exam, continue Cardizem and metoprolol discussed with GI that INR 2.6, holding Coumadin, discussion with Dr Aaron suggests vitamin K 5 mg and recheck INR if still >1.4 will consider kcentra at that time, repeat for 1400 - Hypothyroidism: clinically stable synthroid - DVT proph:coumadin
[2017-01-18 14:48] LABS: INR 1.6 (0.9-1.1); PROTHROMBIN TIME (PATIENT) 17.6 SECONDS (9.0-12.0)
--- NOTE | 2017-01-18 15:37 | History & Physical Bridge Note ---
H&P Re-Evaluation Bridge Note: I have examined the patient, reviewed the History & Physical and in the interval since the performance of the History & Physical I have noted the following changes of clinical significance: AAO x3 Nls1s2 Lungs CTA Abd CTA Abd Soft NT/ND + BS - CCE No changes noted
[2017-01-18] MEDS ORDERED: ONDANSETRON INJ 2 MG/ML 2 ML VIAL ONE (15:49)
[2017-01-18] MEDS ORDERED: PROPOFOL IV EMULSION 10 MG/ML 20 ML VIAL IV ONE (15:49)
[2017-01-18] MEDS ORDERED: DEXAMETHASONE SOD INJ 4 MG/ML VIAL ONE (15:49)
[2017-01-18] MEDS ORDERED: LIDOCAINE HCL 2% 2 ML VIAL (20MG/ML) ONE (15:49)
[2017-01-18] MEDS ORDERED: ROCURONIUM BROMIDE 10 MG/ML 5 ML VIAL ONE (15:49)
[2017-01-18] MEDS ORDERED: FENTANYL CITRATE INJ 50 MCG/1 ML 2 ML VIAL ONE (15:50)
[2017-01-18] MEDS ORDERED: MIDAZOLAM HCL 1 MG/ML 2ML VIAL ONE (15:50)
[2017-01-18] MEDS ORDERED: INDOMETHACIN 50 MG SUPP PR ONE (16:08)
[2017-01-18] MEDS ORDERED: NEOSTIGMINE METHYLSULFATE 5 MG/5 ML SYR ONE (17:04)
[2017-01-18] MEDS ORDERED: GLYCOPYRROLATE INJ 0.2 MG/ML VIAL ONE (17:04)
--- NOTE | 2017-01-18 17:42 | GI REPORT ---
Procedure Date: 01/18/2017 4:14 PM Procedure: ERCP Indications: Abdominal pain of suspected biliary origin, Abnormal MRCP, Elevated aspartate transaminase (AST), Elevated alanine transaminase (ALT), Elevated alkaline phosphatase Medicines: General Anesthesia Complications: No immediate complications. Estimated blood loss: None Estimated Blood Loss: Estimated blood loss: none. Procedure: Pre-Anesthesia Assessment: - Prior to the procedure, a History and Physical was performed, and patient medications and allergies were reviewed. The patient's tolerance of previous anesthesia was also reviewed. The risks and benefits of the procedure and the sedation options and risks were discussed with the patient. All questions were answered, and informed consent was obtained. Prior Anticoagulants: The patient has taken no previous anticoagulant or antiplatelet agents. ASA Grade Assessment: III - A patient with severe systemic disease. After reviewing the risks and benefits, the patient was deemed in satisfactory condition to undergo the procedure. After obtaining informed consent, the scope was passed under direct vision. Throughout the procedure, the patient's blood pressure, pulse, and oxygen saturations were monitored continuously. The Scope was introduced through the mouth, and advanced to the duodenum and used to inject contrast into the bile duct. The ERCP was accomplished without difficulty. The patient tolerated the procedure well. Findings: A contact center rep film of the abdomen was obtained. Surgical clips were seen in the area of the. The scope was advanced to a normal major papilla in the descending duodenum. Examination of the pharynx, larynx and associated structures, and upper GI tract was normal. The major papilla was adjacent to a diverticulum. A straight Tracer wire was passed into the biliary tree. The short-nosed traction sphincterotome was passed over the guidewire and the bile duct was then deeply cannulated. Contrast was injected. I personally interpreted the bile duct images. Ductal flow of contrast was adequate. Image quality was adequate. Contrast extended to the entire biliary tree. The middle third of the main bile duct contained filling defect(s) thought to be a stone. A 4 mm biliary sphincterotomy was made with a short-tip traction sphincterotome using ERBE electrocautery. There was no post-sphincterotomy bleeding. To discover objects, the biliary tree was swept with an 8.5 mm balloon, 11 mm balloon and 11.5 mm balloon starting at the bifurcation. Nothing was found. The biliary system was otherwise normal. The intra and extrahepatic ducts are not dilated. the cystic duct stump is patent. Impression: - The major papilla was adjacent to a diverticulum. - A filling defect consistent with a stone was seen on the cholangiogram. - A sphincterotomy was performed. - The biliary tree was swept and nothing was found. - The examination was suspicious for choledocholithiasis. Treatment was accomplished by biliary sphincterotomy and balloon extraction. No stones or sludge liberated after several balloon sweeps. Balloon passage of all sizes were without resistance to passage - The PD was neither instrumented nor opacified. No samples taken . No stents placed. Final occlusion cholangiogram revealed not persisting fixed or mobile filling defects. Recommendation: - [facility] for [facility] care. - Follow LFT trend to baseline. Consider CT scan/MRI in 4-6 weeks after pancreatitis resolves to assess for pancreatic lesions. Consideration for EUS to assess pancreas to be considered following followup imaging. MD Trey Basilio MD 01/18/2017 5:41:10 PM This report has been signed electronically. Note Initiated On: 01/18/2017 4:14 PM I attest to the content of the Intraoperative Record and orders documented therein, exceptions below
[2017-01-18] MEDS ORDERED: EpHEDrine SULFATE INJ 50 MG/ML AMP IV PRN (17:45)
[2017-01-18] MEDS ORDERED: ATROPINE SULFATE 0.1 MG/ML 5ML SYR IV PRN (17:45)
--- NOTE | 2017-01-18 18:21 | Anesthesiology Progress Note ---
Anesthesia Post Op Note Date & Time Jan 18, 2017 at 18:21 Vital Signs Pain Intensity: 0 Vital Signs Past 12 Hours Date Time Temp Pulse Resp B/P Pulse Ox O2 Delivery O2 Flow Rate FiO2 01/18/17 18:18 36.6 01/18/17 18:17 68 18 98 01/18/17 18:17 70 18 01/18/17 18:16 136/71 01/18/17 18:12 76 18 97 01/18/17 18:12 68 18 01/18/17 18:11 143/69 01/18/17 18:07 67 18 97 01/18/17 18:07 66 18 01/18/17 18:06 138/73 01/18/17 18:02 78 20 97 01/18/17 18:02 78 20 01/18/17 18:01 148/72 01/18/17 17:57 80 20 96 01/18/17 17:57 79 20 01/18/17 17:56 143/78 01/18/17 17:54 68 20 96 01/18/17 17:54 69 20 01/18/17 17:51 142/75 01/18/17 17:49 72 20 01/18/17 17:49 79 20 97 01/18/17 17:48 68 19 98 01/18/17 17:48 68 19 01/18/17 17:46 140/75 01/18/17 17:43 76 21 01/18/17 17:43 82 21 100 01/18/17 17:41 149/78 01/18/17 17:38 76 21 01/18/17 17:38 79 21 100 01/18/17 17:37 72 22 100 01/18/17 17:37 68 22 01/18/17 17:36 158/83 01/18/17 17:32 68 22 01/18/17 17:32 72 22 100 01/18/17 17:31 163/86 01/18/17 17:28 179/86 01/18/17 17:27 36.6 73 16 179/86 99 Mask 10 01/18/17 15:50 36.8 67 16 151/74 95 Room Air 01/18/17 15:35 Room Air 01/18/17 11:04 36.3 65 20 131/75 96 Room Air 01/18/17 10:25 36.6 76 20 132/73 94 Room Air 01/18/17 08:08 Room Air 01/18/17 07:26 36.8 75 16 148/83 96 Room Air Notes Mental Status: alert / awake / arousable, participated in evaluation Pt Amnestic to Procedure: Yes Nausea / Vomiting: adequately controlled Pain: adequately controlled Airway Patency, RR, SpO2: stable & adequate BP & HR: stable & adequate Hydration State: stable & adequate Anesthetic Complications: no major complications apparent
[2017-01-18] MEDS ORDERED: GLUCAGON FOR INJ 1 MG VIAL ONE (18:23)
--- NOTE | 2017-01-18 18:33 | DIAGNOSTIC IMAGING REPORT ---
ERCP BILIARY DUCTAL CLINICAL HISTORY: TO BE DONE IN OR COMPARISON STUDY: None FLUOROSCOPY TIME: 3 minutes 53 seconds.. FINDINGS: Retrograde cannulation of the common duct. Placement of a guidewire. This is followed by balloon insufflation insufflation and sweeping of the common duct. Final image shows no filling defects. IMPRESSION: Successful ERCP. No filling defects in the final image Electronically signed by: Sukhi Headley M.D. 01/18/2017 6:31 PM Dictated Date/Time: 01/18/2017 6:31 PM
[2017-01-19 03:46] VITALS: BP 115/64; PULSE 58; TEMP 36.5; O2SAT 96
[2017-01-19] MEDS: LEVOTHYROXINE 100 MCG TAB PO SCH (06:08)
[2017-01-19] MEDS: NSS + 20MEQ KCL 1000ML 1,000 ML IV SCH (06:10)
[2017-01-19 07:12] VITALS: BP 136/68; PULSE 56; TEMP 36.4; O2SAT 96
[2017-01-19] MEDS: METOPROLOL TARTRATE 25 MG TAB PO SCH (08:44)
[2017-01-19] MEDS: DILTIAZEM HCL 180 MG CAPCR PO SCH (08:45)
--- NOTE | 2017-01-19 10:08 | Anesthesiology Progress Note ---
Anesthesia Post Op Note Date & Time Jan 19, 2017 at 10:08 Vital Signs Pain Intensity: 0.0 Vital Signs Past 12 Hours Date Time Temp Pulse Resp B/P Pulse Ox O2 Delivery O2 Flow Rate FiO2 01/19/17 08:23 Room Air 01/19/17 07:12 36.4 56 16 136/68 96 Room Air 01/19/17 03:46 36.5 58 14 115/64 96 Room Air 01/19/17 00:10 Room Air 01/18/17 23:05 36.7 54 14 123/65 96 Room Air Notes Mental Status: alert / awake / arousable, participated in evaluation Pt Amnestic to Procedure: Yes Nausea / Vomiting: adequately controlled Pain: adequately controlled Airway Patency, RR, SpO2: stable & adequate BP & HR: stable & adequate Hydration State: stable & adequate Anesthetic Complications: no major complications apparent
--- NOTE | 2017-01-19 10:35 | Discharge Instructions ---
Discharge Instructions Date of Service Jan 19, 2017. Admission Reason for Admission: Acute Pancreatitis, Choledocholithiasis Discharge Discharge Diagnosis / Problem: pancreatitis, retained stone, s/p sphincterotomy Discharge Goals Goal(s): Diagnostic testing, Therapeutic intervention Activity Recommendations Activity Limitations: resume your previous activity . Instructions / Follow-Up Instructions / Follow-Up Please call coumadin clinic for advice on your coumadin dosing Please follow up with your primary care in one week and Dr ochoa in 4 weeks Current Hospital Diet Patient's current hospital diet: Low Fat Diet Discharge Diet Recommended Diet: Regular Diet Procedures Procedures Performed: Endoscopic Retrograde Cholangiopancreatogram Pending Studies Studies pending at discharge: no Medical Emergencies . Who to Call and When: Medical Emergencies: If at any time you feel your situation is an emergency, please call 911 immediately. . Non-Emergent Contact Non-Emergency issues call your: Primary Care Provider, Insulation Supervisor (4 weeks) . . "Provider Documentation" section prepared by Jamal Kent. . VTE Core Measure Inpt VTE Proph given/why not?: Warfarin (Coumadin)
[2017-01-19 11:39] VITALS: BP 136/68; PULSE 56; TEMP 36.4; O2SAT 96
--- NOTE | 2017-01-19 13:29 | Discharge Summary ---
Discharge Summary Date of Service Jan 19, 2017. Discharge Summary Admission Date: Jan 17, 2017 at 11:46 Discharge Date: Jan 19, 2017 Discharge Disposition: Home Principal Diagnosis: reatained gall stone, pancreatitis Immunizations: History of Tetanus Vaccine?: Unknown History of Pneumococcal: Unknown History of Hepatitis B Vaccine: Unknown Procedures: ERCP with sphincterotomy and balloon sweep of CBD Consultations: Dr Busch Medication Reconciliation Continued Medications: Bacitracin (Bacitracin Zinc) 45 Appln/15 Gm Oint 1 APPLN EXT BID for 7 Days, #1 Diltiazem Hcl Coated Beads (Diltiazem Cd) 180 Mg Cap 180 MG PO DAILY for 30 Days, #30 CAP 3 Refills Levothyroxine Sodium (Synthroid) 100 Mcg Tab 100 MCG PO DAILY, TAB Metoprolol Tartrate (Lopressor) 25 Mg Tab 12.5 MG PO BID, #60 TAB 3 Refills Saccharomyces Boulardii (Florastor) 250 Mg Cap 1 CAP PO QID Warfarin Sod (Jantoven) 5 Mg Tab PO, TAB dose being established - mix of 5mg and 2.5mg doses Discharge Exam Review of Systems: Constitutional: No chills, No fever Respiratory: No cough, No dyspnea on exertion, No shortness of breath, No sputum Cardiovascular: No chest pain, No edema Abdomen: No nausea, No pain, No vomiting Genitourinary - Male: No dysuria, No hematuria Psychiatric: No anhedonism, No depression symptoms Physical Exam: General Appearance: WD/WN, no apparent distress Neck: supple, no JVD Respiratory/Chest: chest non-tender, lungs clear, normal breath sounds Cardiovascular: regular rate, rhythm, no murmur Abdomen / GI: normal bowel sounds, non tender, soft, no organomegaly Neurologic/Psychiatric: alert, oriented x 3 Hospital Course 81 yo male with recurrent epigastric pain and elevated lipase suggesting pancreatitis, this following recent cholecystectomy for gangrenous cholecystitis and then readmission for cholangitis - Recurrent pancreatitis: Ercp revealed a retained stone in bile duct sphincterotomy and balloon extraction, no additional stone seen follow up with Dr. Busch with plan for repeat CT and possible EUS in 4-6 weeks tolerated advance diet and follow labs - Paroxysmal atrial fibrillation: normal rhythm on exam, continue Cardizem and metoprolol will restart anticoagulation without bridge with coumadin clinic oversight - Hypothyroidism: clinically stable synthroid - DVT proph:coumadin Total Time Spent: Greater than 30 minutes This includes examination of the patient, discharge planning, medication reconciliation, and communication with other providers. Discharge Instructions Please refer to the electronic Patient Visit Report (Discharge Instructions) for additional information.
[2017-01-19] MEDS ORDERED: WARFARIN SOD 5 MG TAB PO SCH (16:00)
--- NOTE | 2017-01-20 17:29 | EDITING REQUIRED CODING QUERY ---
CODING QUERY Dear Dr. Busch, To promote full compliance with coding requirements relating to patient care, provider participation is requested in all cases of cause analyst uncertainty. Please assist us with the question(s) below: In responding to this query, please exercise your independent professional judgement. The fact that a question is asked does not imply that any particular answer is desired or expected. We appreciate your clarification on this issue. ?the biliary tree was swept with an 8.5 mm balloon, 11 mm balloon and 11.5 mm balloon starting at the bifurcation. Nothing was found. The biliary system was otherwise normal.? Coding Question(s): #1 ERCP- Sweeping Please alberto all that apply my placing a X in the parentheses. Sweeping of: ( ) Ampulia of Vater (X ) Common Bile Duct (includes Common Hepatic duct) ( ) Cystic Duct ( ) Hepatic Duct, Left ( ) Hepatic Duct, Right ( ) Pancreatic Duct ( ) Pancreatic Duct, Accessory Please note that the biliary tree is the biliary system including the bile duct system. I believe this terminology is present in [facility] endoscopy reporting. Thank You Medical documentation: the biliary tree was swept with an 8.5 mm balloon, 11 mm balloon and 11.5 mm balloon starting at the bifurcation. Nothing was found. The biliary system was otherwise normal.? Physician's Response(s): Thank you for your time. HAYDEE Bryant Principal Diagnosis: "_that condition established after study, to be chiefly responsible for occasioning the admission of the patient to the hospital for care." Co-Existing Principal Diagnosis: "_when two or more diagnoses equally meet the criteria for principal diagnosis as determined by the circumstances of admission, diagnostic work up, and/or therapy provided, and the Alphabetic Index, Tabular List, or another coding guideline does not provide sequencing direction, any one of the diagnoses may be sequenced first." "When the physician has documented what appears to be a current diagnosis in the body of the record, but has not included the diagnosis in the final diagnostic statement, the physician should be asked whether the diagnosis should be added." ([facility] 2 QTR90. p3-4)
--- NOTE | 2017-01-20 17:35 | EDITING REQUIRED CODING QUERY ---
CODING QUERY Dear Dr. Busch, To promote full compliance with coding requirements relating to patient care, provider participation is requested in all cases of certified medical coder uncertainty. Please assist us with the question(s) below: Coding Question(s): 1. ERCP - Type of Fluoroscopy contrast 2. Body parts with Fluoroscopy Please alberto all that apply with an X in the parenthesis 1. Type of Contrast : a. ( ) High Osmolar b. ( ) Low Osmolar c. ( x ) Other: Please explain 1/2 strength hypaque d. ( ) Or - name of contrast used 2.. Fluoroscopy body parts: x ) Bile Ducts ( ) Billary and Pancreatic ducts ( ) Pancreatic Ducts ( ) Other: Please Explain Physician's Response(s): Thank you for your time. Vannessa Lacey [facility] Principal Diagnosis: "_that condition established after study, to be chiefly responsible for occasioning the admission of the patient to the hospital for care." Co-Existing Principal Diagnosis: "_when two or more diagnoses equally meet the criteria for principal diagnosis as determined by the circumstances of admission, diagnostic work up, and/or therapy provided, and the Alphabetic Index, Tabular List, or another coding guideline does not provide sequencing direction, any one of the diagnoses may be sequenced first." "When the physician has documented what appears to be a current diagnosis in the body of the record, but has not included the diagnosis in the final diagnostic statement, the physician should be asked whether the diagnosis should be added." ([facility] 2 QTR90. p3-4)
[2017-04-18] MEDS ORDERED: DILT-113 PO (07:34)
[2017-05-04] MEDS ORDERED: CIPR1TAB10 PO (13:47)
[2017-05-04] MEDS ORDERED: HYDR-5688 PO (13:47)
[2017-05-05] MEDS ORDERED: CEPH500C2 PO (10:03)
== END 2017-01-19 14:07 | disposition home or self-care (01) | DRG 394 ==
LOC: ENRESERVTM → ENRESERVDT → C.EDB 09:54 → C.MSW 11:46
PROVIDERS: ADMIT Internal Medicine; ATTEND Internal Medicine
PROC: BF10YZZ Fluoroscopy of Bile Ducts using Other Contrast (ICD-10-PCS; principal; 2017-01-18 08:45)
PROC: 0F798ZZ Dilation of Common Bile Duct, Via Natural or Artificial Opening Endoscopic (ICD-10-PCS; principal; 2017-01-18 08:45)
DX: K91.86 Retained cholelithiasis following cholecystectomy (principal); K86.1 Other chronic pancreatitis; K83.0 Cholangitis; E03.9 Hypothyroidism, unspecified; I48.0 Paroxysmal atrial fibrillation; K57.90 Diverticulosis of intestine, part unspecified, without perforation or abscess without bleeding; Y83.9 Surgical procedure, unspecified as the cause of abnormal reaction of the patient, or of later complication, without mention of misadventure at the time of the procedure; Y92.239 Unspecified place in hospital as the place of occurrence of the external cause; Z87.891 Personal history of nicotine dependence; Z79.01 Long term (current) use of anticoagulants; Z79.899 Other long term (current) drug therapy; Z90.49 Acquired absence of other specified parts of digestive tract; R74.8 Abnormal levels of other serum enzymes

== ENCOUNTER → 2017-01-23 | Outpatient (CLI) | payer BC ==
[~2017-01-23] MED LIST changes: +CEPH500C2 PO; +CIPR1TAB10 PO; -CLC/300 PO; +DILT-113 PO; +HYDR-5688 PO
[2017-01-23 13:34] LABS: BASO % 0.4 %; BASO ABS # 0.02 K/uL (0-0.2); COMPLETE YES; EOS % 1.1 %; HEMATOCRIT 42.7 % (42-52); IG% 0.9 %; LYMPH % 17.4 %; LYMPH ABS # 0.98 K/uL (1.2-3.4); MEAN CELL VOLUME 96.4 fL (80-100); MEAN CORPUSCULAR HEMOGLOBIN 31.6 pg (25-34); MEAN CORPUSCULAR HGB CONC 32.8 g/dl (32-36); MONO % 4.6 %; NEUT % 75.6 %; PLATELET COUNT 328 K/uL (130-400); RED BLOOD COUNT 4.43 M/uL (4.7-6.1); WHITE BLOOD COUNT 5.62 K/uL (4.8-10.8)
[2017-01-23 14:54] LABS: ALKALINE PHOSPHATASE 225 U/L (45-117); ALT/SGPT 47 U/L (12-78); AST/SGOT 15 U/L (15-37); BLOOD UREA NITROGEN 14 mg/dl (7-18); BUN/CREATININE RATIO 14.4 (10-20); CALCIUM 8.9 mg/dl (8.5-10.1); CARBON DIOXIDE 29 mmol/L (21-32); CHLORIDE 104 mmol/L (98-107); GLUCOSE 154 mg/dl (70-99); POTASSIUM 4.1 mmol/L (3.5-5.1); SODIUM 140 mmol/L (136-145)
[2017-01-23 14:55] LABS: ALB/GLOB RATIO 0.7 (0.9-2)
== END | disposition home or self-care (01) ==
LOC: C.LABBC 10:03
PROVIDERS: ATTEND Internal Medicine
DX: K85.10 Biliary acute pancreatitis without necrosis or infection (principal)

== ENCOUNTER → 2017-03-20 | Outpatient (CLI) | payer BC ==
[~2017-03-20] MED LIST changes: -BCTO EXT; +GADAVIST IV PRN; -SACC250C3 PO
--- NOTE | 2017-03-20 10:25 | DIAGNOSTIC IMAGING REPORT ---
MRI OF THE ABDOMEN COMBO CLINICAL HISTORY: Pancreatitis.. COMPARISON STUDY: Abdominal CT dated 01/08/2017. MRCP dated 01/08/2017. TECHNIQUE: MRI of the abdomen is performed transverse T1 and T2-weighted sequences in the axial and coronal planes. Contrast enhanced sequences were acquired following the IV administration of 7.5 cc of Gadavist. Subtraction imaging was utilized. FINDINGS: Lower chest: No pleural effusion is identified. The heart is enlarged. Liver: The liver is normal in size, contour, and signal intensity. No intrahepatic biliary ductal dilatation is seen. The hepatic veins and portal veins are patent. Scattered hepatic cysts measure up to 10 mm. Gallbladder: Surgically absent. Spleen: Normal in size and signal intensity. Pancreas: There is mild glandular atrophy of the pancreas. No peripancreatic inflammation or fluid is seen. There is no evidence of pseudocyst. 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 The pancreatic duct is normal in caliber. Adrenal glands: Unremarkable. Kidneys: The kidneys demonstrate cortical atrophy and are without hydronephrosis. The kidneys enhance symmetrically. A 6 cm cyst arises from the left lower pole. Additional tiny cysts are noted bilaterally. Abdominal aorta: Normal in course and caliber. Bowel: Visualized portions of the small bowel and colon show no evidence of obstruction. Duodenal diverticula are observed. Peritoneum: There is no abdominal ascites. Lymphadenopathy: None. Skeletal structures: Visualized skeletal structures times are normal marrow signal intensity. IMPRESSION: 1. 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 2. The pancreas is otherwise normal as visualized. There is no evidence of acute pancreatitis. 3. Additional findings as above. Electronically signed by: Stanley Lancaster M.D. 03/20/2017 10:23 AM Dictated Date/Time: 03/20/2017 10:10 AM
== END | disposition home or self-care (01) ==
LOC: C.MRIBC 08:38
PROVIDERS: ATTEND Internal Medicine Gastroenterology
DX: K85.90 Acute pancreatitis without necrosis or infection, unspecified (principal)

== ENCOUNTER → 2017-04-11 | Outpatient (CLI) | payer BC ==
[~2017-04-11] MED LIST changes: -DILT180C58 PO; +DILT180C96 PO; -GADAVIST IV PRN
--- NOTE | 2017-04-11 10:42 | DIAGNOSTIC IMAGING REPORT ---
Limited abdominal ultrasound ABDOMEN FOR HERNIA CLINICAL HISTORY: K43.9 Ventral hernia HERNIA AT SITE OF UMBILICAL INCISION OF LAP TECHNIQUE: Ultrasound COMPARISON STUDY: None FINDINGS: Study confirms presence of a small fat-containing periumbilical hernia. This measures 1.5 x 1.0 cm it is immediately superior to the umbilicus and surgical scar. This is reducible. No evidence of bowel containment. IMPRESSION: Small periumbilical hernia immediately superior to the patient's operative scar. This is fat-containing exclusively with no evidence for bowel containment. It is reducible. Electronically signed by: Sukhi Headley M.D. 04/11/2017 10:41 AM Dictated Date/Time: 04/11/2017 10:39 AM
== END | disposition home or self-care (01) ==
LOC: C.ULTRBC 09:28
PROVIDERS: ATTEND Surgery
DX: K43.9 Ventral hernia without obstruction or gangrene (principal)

== ENCOUNTER → 2017-04-19 | Outpatient (CLI) | payer BC ==
[~2017-04-19] MED LIST changes: -DILT180C96 PO; -WARF5TAB7 PO
[2017-04-19 14:01] LABS: BASO % 0.4 %; BASO ABS # 0.02 K/uL (0-0.2); COMPLETE YES; EOS % 1.7 %; HEMATOCRIT 46.4 % (42-52); IG% 0.2 %; LYMPH % 19.9 %; LYMPH ABS # 1.06 K/uL (1.2-3.4); MEAN CELL VOLUME 94.9 fL (80-100); MEAN CORPUSCULAR HEMOGLOBIN 32.5 pg (25-34); MEAN CORPUSCULAR HGB CONC 34.3 g/dl (32-36); MEAN PLATELET VOLUME 10.6 fL (7.4-10.4); MONO % 7.7 %; NEUT % 70.1 %; PLATELET COUNT 172 K/uL (130-400); RED BLOOD COUNT 4.89 M/uL (4.7-6.1); WHITE BLOOD COUNT 5.34 K/uL (4.8-10.8)
[2017-04-19 14:03] LABS: BLOOD UREA NITROGEN 13 mg/dl (7-18); BUN/CREATININE RATIO 12.1 (10-20); CALCIUM 9.2 mg/dl (8.5-10.1); CARBON DIOXIDE 26 mmol/L (21-32); CHLORIDE 108 mmol/L (98-107); GLUCOSE 90 mg/dl (70-99); POTASSIUM 4.8 mmol/L (3.5-5.1); SODIUM 138 mmol/L (136-145)
== END | disposition home or self-care (01) ==
LOC: C.LABBC 11:41
PROVIDERS: ATTEND Surgery
DX: Z01.812 Encounter for preprocedural laboratory examination (principal); K43.9 Ventral hernia without obstruction or gangrene

== ENCOUNTER 2017-05-03 06:57 | Inpatient (IN) | payer BC, OTHER ==
[2017-04-18 07:34] VITALS: BMI 24.0
[2017-05-03] VITALS (11 sets, daily range): BP systolic 135–208; BP diastolic 55–102; PULSE 54–84; TEMP 36.3–36.7; O2SAT 92–99; Ht 172.7 cm; Wt 73.6 kg
[~2017-05-03] VITALS: Ht 172.7 cm; Wt 73.6 kg
[~2017-05-03 06:57] MED LIST changes: -CEPH500C2 PO; -CIPR1TAB10 PO; +CLINDAMYCIN IV 900 MG in DEXTROSE 5% 100ML 100 ML IV SCH; -HYDR-5688 PO; +LACTATED RINGER'S 1000ML 1,000 ML IV SCH
[2017-05-03] MEDS ORDERED: LIDOCAINE HCL 2% 2 ML VIAL (20MG/ML) ONE (07:22)
[2017-05-03] MEDS ORDERED: PROPOFOL IV EMULSION 10 MG/ML 20 ML VIAL IV ONE (07:22)
[2017-05-03] MEDS ORDERED: SUCCINYLCHOLINE 100MG/5ML SYR IV ONE (07:22)
[2017-05-03] MEDS ORDERED: FENTANYL CITRATE INJ 50 MCG/1 ML 2 ML VIAL ONE ×3 (07:23→11:16)
[2017-05-03] MEDS ORDERED: FENTANYL CITRATE INJ 50 MCG/1 ML 2 ML VIAL IV PRN (07:30)
[2017-05-03] MEDS ORDERED: EpHEDrine SULFATE INJ 50 MG/ML AMP IV PRN (07:30)
[2017-05-03] MEDS ORDERED: ONDANSETRON INJ 2 MG/ML 2 ML VIAL IV PRN ×2 (07:30→10:00)
[2017-05-03] MEDS ORDERED: ATROPINE SULFATE 0.1 MG/ML 5ML SYR IV PRN (07:30)
[2017-05-03] MEDS ORDERED: HYDROmorphone INJ 1 MG/ML SYR IV PRN (07:30)
--- NOTE | 2017-05-03 08:03 | History & Physical Bridge Note ---
H&P Re-Evaluation Bridge Note: I have examined the patient, reviewed the History & Physical and in the interval since the performance of the History & Physical I have noted the following changes of clinical significance: No changes noted
[2017-05-03] MEDS ORDERED: LIDOCAINE HCL 1% 20 ML VIAL ONE (08:04)
[2017-05-03] MEDS ORDERED: CEFAZOLIN SOD 1 GM VIAL ONE (08:05)
[2017-05-03] MEDS ORDERED: BUPIVACAINE 0.5 % 5 MG/1 ML MPF 30ML VIAL ONE (08:05)
[2017-05-03] MEDS ORDERED: EpHEDrine SULFATE INJ 50 MG/ML AMP ONE (08:58)
[2017-05-03] MEDS ORDERED: GLYCOPYRROLATE INJ 0.2 MG/ML VIAL ONE (08:58)
[2017-05-03] MEDS ORDERED: PHENYLEPHRINE 100MCG/ML 5ML SYR ONE (09:26)
[2017-05-03] MEDS ORDERED: LACTATED RINGER'S 1000ML 1,000 ML IV SCH (09:53)
[2017-05-03] MEDS ORDERED: HYDROCODONE/ACETAMOPHEN 5/325MG TAB PO PRN ×2 (10:00)
[2017-05-03] MEDS ORDERED: MoRPHine SULFATE 4 MG/ML 1 ML CARP\\VIAL IV PRN (10:00)
[2017-05-03] MEDS ORDERED: MoRPHine SULFATE 2 MG/ML CARP IV PRN (10:00)
--- NOTE | 2017-05-03 10:00 | [facility] Operative Report ---
Operative Report Operative Date May 03, 2017. Pre-Operative Diagnosis Ventral Hernia Post-Operative Diagnosis Same as preop Procedure(s) Performed Ventral Hernia Repair with Mesh Surgeon Dr. Xie Pelt Salter Surgeon(s) Nathan Willard PA-C Estimated Blood Loss 30 ml Findings 4x6 cm defect used 8 cm C-Qur mesh Specimens None per Surgeon Drains #15 Rd YADIRA to sub cu Anesthesia gen Complication(s) None Disposition Recovery Room / PACU I attest to the content of the Intraoperative Record and any orders documented therein. Any exceptions are noted below.
--- NOTE | 2017-05-03 10:22 | OPERATIVE REPORT ---
DATE OF OPERATION: 05/03/2017 NAME OF OPERATION: Open ventral hernia repair with mesh. PREOPERATIVE DIAGNOSIS: Ventral hernia. POSTOPERATIVE DIAGNOSIS: Same with a 6 x 4 cm defect. STAFF SURGEON: Dr. Robles Xie. MONOTYPER: Nathan Willard PA-C ANESTHESIA: General. DESCRIPTION OF PROCEDURE: The patient was brought into the operating room and placed on the operating table in the supine position. His abdomen was prepped and draped in the usual fashion. After appropriate general anesthetic, the skin and subcutaneous tissue were anesthetized using 0.5% plain Marcaine. Transverse incision was made carrying dissection down identifying the hernia. It was not a well-formed sac, but after the tissue was opened, I was able to palpate the fascial edges, which were approximately 4 x 6 cm creating the defect. The peritoneal tissue was dissected away from the edge of the fascia and then the fascia mobilized from the subcutaneous tissue, 3-4 cm circumferentially. The preperitoneal tissue was then dissected away from the fascia to allow mesh placement in a subfascial preperitoneal position. An 8-cm piece of C-QUR mesh was obtained and then, it was secured using mattress sutures of 0 Vicryl placed at 12, 3, 6 and 9 o'clock and then, the fascial edges were secured to the mesh using 2-0 Vicryl suture. At this point, a #15 round Edvin-Potter drain was placed into the subcutaneous space and secured to the skin using 3-0 nylon suture. The site was irrigated with antibiotic solution. Subcutaneous tissue was reapproximated using both 2-0 plain and chromic suture. The umbilicus was identified. There was a small opening, which had been closed prior at laparoscopic cholecystectomy. The umbilicus was detached from the fascia and then reattached using 2-0 chromic catgut suture. At this point, the skin was reapproximated using 4-0 nylon suture and dressing applied. The patient was transferred to recovery room in stable condition. Again, the defect was approximately 6.4 cm with an 8-cm piece of mesh used. I attest to the content of the Intraoperative Record and any orders documented therein. Any exception s are noted below.
--- NOTE | 2017-05-03 10:41 | Anesthesiology Progress Note ---
Anesthesia Post Op Note Date & Time May 03, 2017 at 10:40 Vital Signs Pain Intensity: 3 Vital Signs Past 12 Hours Date Time Temp Pulse Resp B/P (MAP) Pulse Ox O2 Delivery O2 Flow Rate FiO2 05/03/17 10:30 60 16 152/72 99 Nasal Cannula 3 05/03/17 10:20 61 16 147/77 99 Oxymask 5 05/03/17 10:10 36.4 61 18 150/78 98 Oxymask 10 05/03/17 10:01 36.4 76 18 160/87 97 Oxymask 10 05/03/17 07:15 36.7 61 16 151/79 (103) 97 Room Air Notes Mental Status: alert / awake / arousable, participated in evaluation Pt Amnestic to Procedure: Yes Nausea / Vomiting: adequately controlled Pain: adequately controlled Airway Patency, RR, SpO2: stable & adequate BP & HR: stable & adequate Hydration State: stable & adequate Anesthetic Complications: no major complications apparent
--- NOTE | 2017-05-03 12:23 | Medical Student: [facility] ---
Consultation Date of Consultation: May 03, 2017. Requesting Physician: Dr. Xie Attending Physician: Dr. Argueta Reason for Consultation: post-op medical management History of Present Illness Mr. Rowe is a 81yo male with a history of hypertension, hypothyroidism and ventral hernia who is day 0 s/p open ventral hernia repair under general anesthesia with Dr. Xie on 05/03/17. He is feeling good now, pain 3/10, with no complaints. Denies fever, chills, cp, palpitations, sob, headache, dizziness, nausea, numbness/tingling, calf tenderness Past Medical/Surgical History Medical History: 1. Hypertension 2. ?Hypothyroidism 3. Hx of afib w/ RVR 4. Hx of acute cholecystitis Surgical History: 1. 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[employer]) Review of Systems Denies fever, chills, cp, palpitations, sob, headache, dizziness, nausea, numbness/tingling, calf tenderness Allergies Coded Allergies: Penicillins (Verified Allergy, Unknown, RASH, 05/03/17) Medications Current Inpatient Medications Medications (Trade) Dose Ordered Sig/Melanie Route Start Time Stop Time Status Last Admin Dose Admin Clindamycin Phosphate 900 mg/ Dextrose 106 ml @ 106 mls/hr PREOP IV 05/03/17 06:00 05/03/17 23:59 05/03/17 08:26 106 MLS/HR Fentanyl Citrate (Fentanyl Inj) 25 mcg Q5M PRN IV 05/03/17 07:30 05/03/17 12:30 Hydromorphone HCl (Dilaudid Inj) 0.5 mg Q5M PRN IV 05/03/17 07:30 05/03/17 12:30 Ondansetron HCl (Zofran Inj) 4 mg ONE PRN IV 05/03/17 07:30 05/03/17 12:30 Ephedrine Sulfate (EpHEDrine SULFATE INJ) 5 mg Q5M PRN IV 05/03/17 07:30 05/03/17 12:30 Atropine Sulfate (Atropine Sulfate 0.1MG/Ml Inj) 0.5 mg Q1M PRN IV 05/03/17 07:30 05/03/17 12:30 Diltiazem HCl (TIAzac CAP) 180 mg DAILY@1500 PO 05/03/17 15:00 06/02/17 14:59 Levothyroxine Sodium (Synthroid Tab) 100 mcg DAILYBB PO 05/04/17 06:00 06/03/17 05:59 Metoprolol Tartrate (Lopressor Tab) 12.5 mg BID PO 05/03/17 21:00 06/02/17 20:59 Lactated Ringer's 1,000 ml @ 50 mls/hr Q20H IV 05/03/17 09:53 06/02/17 09:52 05/03/17 11:32 50 MLS/HR Clindamycin Phosphate 600 mg/ Dextrose 54 ml @ 100 mls/hr Q8H IV 05/03/17 16:00 05/04/17 15:59 Acetaminophen/ Hydrocodone Bitart ([place] 5/325 Tab) 1 tab Q4 PRN PO 05/03/17 10:00 05/17/17 09:59 Acetaminophen/ Hydrocodone Bitart ([place] 5/325 Tab) 2 tab Q4 PRN PO 05/03/17 10:00 05/17/17 09:59 Morphine Sulfate (MoRPHine SULFATE INJ) 2 mg Q4H PRN IV 05/03/17 10:00 05/17/17 09:59 Morphine Sulfate (MoRPHine SULFATE INJ) 4 mg Q4H PRN IV 05/03/17 10:00 05/17/17 09:59 Ondansetron HCl (Zofran Inj) 4 mg Q6H PRN IV 05/03/17 10:00 06/02/17 09:59 Senna/Docusate Sodium (Senokot S Tab) 1 tab BID PO 05/03/17 13:00 06/02/17 12:59 Magnesium Hydroxide (Milk Of Magnesia Susp) 30 ml BID PO 05/03/17 13:00 06/02/17 12:59 Physical Exam Date Time Temp Pulse Resp B/P (MAP) Pulse Ox O2 Delivery O2 Flow Rate FiO2 05/03/17 12:03 54 18 164/78 (106) 97 Nasal Cannula 2.0 05/03/17 11:28 60 16 177/55 (95) 97 2.0 05/03/17 11:15 Nasal Cannula 2.0 05/03/17 11:15 Nasal Cannula 2.0 05/03/17 11:00 36.4 60 16 164/75 (104) 95 Nasal Cannula 2.0 05/03/17 10:50 36.2 60 16 135/69 99 Nasal Cannula 3 05/03/17 10:45 36.4 60 12 140/68 98 Nasal Cannula 2 05/03/17 10:40 60 16 139/74 99 Nasal Cannula 3 05/03/17 10:30 60 16 152/72 99 Nasal Cannula 3 05/03/17 10:20 61 16 147/77 99 Oxymask 5 05/03/17 10:10 36.4 61 18 150/78 98 Oxymask 10 05/03/17 10:01 36.4 76 18 160/87 97 Oxymask 10 05/03/17 07:15 36.7 61 16 151/79 (103) 97 Room Air General Appearance: WD/WN, no apparent distress Eyes: bilateral eyes normal inspection, bilateral eyes PERRL, bilateral eyes EOMI ENT: normal ENT inspection, hearing grossly normal, pharynx normal Neck: supple, no adenopathy, no carotid bruits Respiratory: lungs clear, normal breath sounds, no respiratory distress, no accessory muscle use Cardiovascular: no gallop, no murmur, + bradycardia Abdomen: normal bowel sounds, soft, + tenderness (RLQ, appropriate post-op), + pertinent finding (RLQ surgical wound dressing c/d/i, YADIRA drain draining serosanguinous fluid) Musculoskeletal: normal strength (5/5 throughout), normal tone, pertinent finding (BLE SCDs) Neurologic/Psychiatric: experience planning strategist II-XII nml as tested, no motor/sensory deficits, alert, normal mood/affect, oriented x 3 Assessment & Plan This is a 81yo male with a history of hypertension, hypothyroidism and ventral hernia who is day 0 s/p open ventral hernia repair under general anesthesia with Dr. Xie on 05/03/17. At this time he is medically stable. Plan: Precautions: Fall Admit for observation under the care of Dr. Argueta 1. ventral hernia s/p open hernia repair with mesh by Dr. Xie on 05/03/17 -vitals q30min -OOB as tolerated -encourage incentive spirometry -I/Os -PRN straight cath -PRN percocet 5/325 PO q4h prn pain -PRN zofran 4mg IV q4h prn nausea -magnesium hydroxide 30ml PO BID -docusate/senna 1 tab PO BID -PT/OT evaluate and treat -AM CBC w/ diff -AM BMP -AM partial renal panel -YADIRA drain per surgery -call HO: BP <110/60, HR < 60, T >100.4 or <96.8, new chest pain, new SOB, new AMS 2. Hypertension, post-op BP 164/78, HR 54 -give PM dose of metoprolol 12.5mg, monitor BP -HOLD home amlodipine 180mg for low BP -consider holding IV LR as it may be contributing to patient's hypertension and patient has adequate PO intake 3. Hypothyroidism -restart levothyroxine 100mcg PO daily 4. Afib w/ RVR, stable and stopped apixaban 5mg last month -HOLD diltiazem as above 5. Diet -Regular diet 6. DVT prophylaxis -SCDs -patient will ambulate as tolerated 7. Disposition -Location: home with assistance -Date: 05/04/17
--- NOTE | 2017-05-03 12:33 | Medical Consult ---
Consultation Date of Consultation: May 03, 2017. Attending Physician: Robles Xie M.D. Reason for Consultation: Postoperative medical management History of Present Illness The patient is an 81-year-old male seen status post open ventral hernia repair by Dr. Robles Xie earlier in the day today. Postoperatively he has the routine incisional pain. He denies chest pain, palpitations, shortness of breath, fevers, chills, nausea, vomiting, diarrhea, constipation, lightheadedness, dizziness, rash, focal weakness in arms or legs, generalized weakness, blood in urine or stool. Past Medical/Surgical History Medical Problems: (1) Cholangitis Status: Acute Family History No pertinent family history secondary to age Social History Smoking Status: Former Smoker Smokeless Tobacco Use: No Alcohol Use: none Drug Use: none Marital Status: Housing Status: lives with family Occupation Status: employed Allergies Coded Allergies: Penicillins (Verified Allergy, Unknown, RASH, 05/03/17) Home Medications Tiazac 180 mg by mouth daily. Metoprolol tartrate 12.5 mg by mouth twice a day. Levothyroxine sodium 100 g by mouth daily. Current Inpatient Medications Current Inpatient Medications Medications (Trade) Dose Ordered Sig/Melanie Route Start Time Stop Time Status Last Admin Dose Admin Clindamycin Phosphate 900 mg/ Dextrose 106 ml @ 106 mls/hr PREOP IV 05/03/17 06:00 05/03/17 23:59 05/03/17 08:26 106 MLS/HR Fentanyl Citrate (Fentanyl Inj) 25 mcg Q5M PRN IV 05/03/17 07:30 05/03/17 12:30 Hydromorphone HCl (Dilaudid Inj) 0.5 mg Q5M PRN IV 05/03/17 07:30 05/03/17 12:30 Ondansetron HCl (Zofran Inj) 4 mg ONE PRN IV 05/03/17 07:30 05/03/17 12:30 Ephedrine Sulfate (EpHEDrine SULFATE INJ) 5 mg Q5M PRN IV 05/03/17 07:30 05/03/17 12:30 Atropine Sulfate (Atropine Sulfate 0.1MG/Ml Inj) 0.5 mg Q1M PRN IV 05/03/17 07:30 05/03/17 12:30 Diltiazem HCl (TIAzac CAP) 180 mg DAILY@1500 PO 05/03/17 15:00 06/02/17 14:59 Levothyroxine Sodium (Synthroid Tab) 100 mcg DAILYBB PO 05/04/17 06:00 06/03/17 05:59 Metoprolol Tartrate (Lopressor Tab) 12.5 mg BID PO 05/03/17 21:00 06/02/17 20:59 Lactated Ringer's 1,000 ml @ 50 mls/hr Q20H IV 05/03/17 09:53 06/02/17 09:52 05/03/17 11:32 50 MLS/HR Clindamycin Phosphate 600 mg/ Dextrose 54 ml @ 100 mls/hr Q8H IV 05/03/17 16:00 05/04/17 15:59 Acetaminophen/ Hydrocodone Bitart ([place] 5/325 Tab) 1 tab Q4 PRN PO 05/03/17 10:00 05/17/17 09:59 Acetaminophen/ Hydrocodone Bitart ([place] 5/325 Tab) 2 tab Q4 PRN PO 05/03/17 10:00 05/17/17 09:59 Morphine Sulfate (MoRPHine SULFATE INJ) 2 mg Q4H PRN IV 05/03/17 10:00 05/17/17 09:59 Morphine Sulfate (MoRPHine SULFATE INJ) 4 mg Q4H PRN IV 05/03/17 10:00 05/17/17 09:59 Ondansetron HCl (Zofran Inj) 4 mg Q6H PRN IV 05/03/17 10:00 06/02/17 09:59 Senna/Docusate Sodium (Senokot S Tab) 1 tab BID PO 05/03/17 13:00 06/02/17 12:59 Magnesium Hydroxide (Milk Of Magnesia Susp) 30 ml BID PO 05/03/17 13:00 06/02/17 12:59 Review of Systems The patient denies chest pain, palpitations, shortness of breath, cough, lower extremity swelling, vision change, hearing change, sore throat, fevers, chills, sweats, fatigue, nausea, vomiting, blood in urine or stool, dysuria, urinary frequency or urgency, lightheadedness, dizziness, headache, memory loss, rash, imbalance, focal or generalized weakness, numbness or tingling in arms or legs, arthralgias or myalgias, back or neck pain, night sweats, or allergy symptoms. The review of systems is otherwise negative other than for that already noted above, and at least 10 systems have been reviewed. Physical Exam Date Time Temp Pulse Resp B/P (MAP) Pulse Ox O2 Delivery O2 Flow Rate FiO2 05/03/17 12:03 54 18 164/78 (106) 97 Nasal Cannula 2.0 05/03/17 11:28 60 16 177/55 (95) 97 2.0 05/03/17 11:15 Nasal Cannula 2.0 05/03/17 11:15 Nasal Cannula 2.0 05/03/17 11:00 36.4 60 16 164/75 (104) 95 Nasal Cannula 2.0 05/03/17 10:50 36.2 60 16 135/69 99 Nasal Cannula 3 05/03/17 10:45 36.4 60 12 140/68 98 Nasal Cannula 2 05/03/17 10:40 60 16 139/74 99 Nasal Cannula 3 05/03/17 10:30 60 16 152/72 99 Nasal Cannula 3 05/03/17 10:20 61 16 147/77 99 Oxymask 5 05/03/17 10:10 36.4 61 18 150/78 98 Oxymask 10 05/03/17 10:01 36.4 76 18 160/87 97 Oxymask 10 05/03/17 07:15 36.7 61 16 151/79 (103) 97 Room Air The patient is awake, well-developed and adequately nourished, alert and oriented 3, normocephalic and atraumatic, lying in bed and in no acute distress. HEENT--PERRL, EOMI, mucous membranes and oropharynx dry. Neck--supple, no JVD or bruits, thyroid normal, trachea midline, no adenopathy. Heart--normal S1 and S2, no extra beats, no murmurs, rubs or gallops. Lungs--clear bilaterally with good air movement, no respiratory distress, no accessory muscle use. Abdomen--normal bowel sounds and soft. Expected incisional area tenderness. Nondistended, no hernias or masses, no organomegaly. Extremities--no cyanosis, clubbing or edema. There are good distal pulses b/l. Dermatologic--normal skin turgor, normal color, warm and dry, no abnormal lymph nodes, no rash. Neurologic--cranial nerves II through XII grossly intact, motor and sensory examination normal. Rheumatologic--normal range of motion, nontender, muscles and joints. Psychiatric--normal affect. Assessment & Plan Patient is seen status post open ventral hernia repair--medically stable. Hypertension/history atrial fibrillation with RVR/bradycardia--heart rate is in the 50s at this time. We will hold Tiazac which typically is given at 1500 hrs. Continue metoprolol tartrate 12.5 mg by mouth twice a day, with hold for heart rate less than 60 or systolic blood pressure less than 120. Place on hydralazine 10 mg IV every 4 hours when necessary systolic blood pressure greater than 160 if heart rate less than 70. Hypothyroidism--continue levothyroxine sodium 100 g by mouth every morning. Thank you for this consult. [facility] Service will follow along during hospital stay.
[2017-05-03] MEDS ORDERED: IV FLUIDS COMPLETED PRN (12:45)
[2017-05-03] MEDS: DOCUSATE SODIUM/SENNA 50/8.6MG TAB PO SCH ×2 (13:00→20:48)
[2017-05-03] MEDS: MAGNESIUM HYDROXIDE SUSP 30 ML UDC PO SCH ×2 (13:01→20:48)
[2017-05-03] MEDS ORDERED: DILTIAZEM HCL (TIAzac) 180 MG CAPCR PO SCH (15:00)
[2017-05-03] MEDS ORDERED: CLINDAMYCIN IV 600 MG in DEXTROSE 5% 50ML 50 ML IV SCH (16:00)
[2017-05-03] MEDS: CLINDAMYCIN IV 600 MG in DEXTROSE 5% 50ML 50 ML IV SCH ×2 (16:35→23:35)
[2017-05-03] MEDS: METOPROLOL TARTRATE 25 MG TAB PO SCH (20:48)
[2017-05-04] MEDS ORDERED: HydrALAZINE HCL 20 MG/ML VIAL IV. PRN (00:30)
[2017-05-04 00:51] VITALS: BP 150/75
[2017-05-04 03:50] VITALS: BP 144/65; PULSE 68; TEMP 36.5; O2SAT 91
[2017-05-04 05:18] LABS: HEMATOCRIT 44.7 % (42-52); MEAN CELL VOLUME 94.1 fL (80-100); MEAN CORPUSCULAR HEMOGLOBIN 32.2 pg (25-34); MEAN CORPUSCULAR HGB CONC 34.2 g/dl (32-36); MEAN PLATELET VOLUME 10.4 fL (7.4-10.4); PLATELET COUNT 150 K/uL (130-400); RED BLOOD COUNT 4.75 M/uL (4.7-6.1); WHITE BLOOD COUNT 8.54 K/uL (4.8-10.8)
[2017-05-04] MEDS: LEVOTHYROXINE 100 MCG TAB PO SCH (05:32)
[2017-05-04 05:52] LABS: BUN/CREATININE RATIO 11.6 (10-20); CALCIUM 8.7 mg/dl (8.5-10.1); MAGNESIUM 2.2 mg/dl (1.8-2.4); PHOSPHORUS 2.4 mg/dl (2.5-4.9); POTASSIUM 4.4 mmol/L (3.5-5.1)
--- NOTE | 2017-05-04 05:57 | Surgery Progress Note ---
Surgery Progress Note Date of Service May 04, 2017. Subjective + pain controlled urine output 250-300/ void some distention, no bm Objective Vital Signs: Date Time Temp Pulse Resp B/P (MAP) Pulse Ox O2 Delivery O2 Flow Rate FiO2 05/04/17 03:50 36.5 68 16 144/65 (91) 91 Room Air 05/04/17 00:51 150/75 (100) 05/03/17 23:45 Room Air 05/03/17 23:22 36.3 72 18 208/102 (137) 92 Room Air 05/03/17 20:45 84 152/84 (106) 05/03/17 19:36 36.6 68 16 136/81 (99) 96 Room Air 05/03/17 16:34 64 169/72 (104) 05/03/17 16:00 Room Air 05/03/17 15:55 36.5 56 18 159/79 (105) 96 Room Air 05/03/17 14:00 36.7 60 18 135/86 (102) 99 Nasal Cannula 2.0 05/03/17 13:00 36.7 58 19 164/84 (110) 99 Nasal Cannula 2.0 05/03/17 12:03 54 18 164/78 (106) 97 Nasal Cannula 2.0 05/03/17 11:28 60 16 177/55 (95) 97 2.0 05/03/17 11:15 Nasal Cannula 2.0 05/03/17 11:15 Nasal Cannula 2.0 05/03/17 11:00 36.4 60 16 164/75 (104) 95 Nasal Cannula 2.0 05/03/17 10:50 36.2 60 16 135/69 99 Nasal Cannula 3 05/03/17 10:45 36.4 60 12 140/68 98 Nasal Cannula 2 05/03/17 10:40 60 16 139/74 99 Nasal Cannula 3 05/03/17 10:30 60 16 152/72 99 Nasal Cannula 3 05/03/17 10:20 61 16 147/77 99 Oxymask 5 05/03/17 10:10 36.4 61 18 150/78 98 Oxymask 10 05/03/17 10:01 36.4 76 18 160/87 97 Oxymask 10 05/03/17 07:15 36.7 61 16 151/79 (103) 97 Room Air Physical Exam: YADIRA drainage (serosang drainage) General Appearance: no apparent distress Respiratory/Chest: no respiratory distress Abdomen: + distended (has active bowel sounds) Incision(s): dry, intact Laboratory Results: Results Past 24 Hours Test 05/04/17 04:37 Range/Units White Blood Count 8.54 4.8-10.8 K/uL Red Blood Count 4.75 4.7-6.1 M/uL Hemoglobin 15.3 14.0-18.0 g/dL Hematocrit 44.7 42-52 % Mean Corpuscular Volume 94.1 80-100 fL Mean Corpuscular Hemoglobin 32.2 25-34 pg Mean Corpuscular Hemoglobin Concent 34.2 32-36 g/dl RDW Standard Deviation 44.9 36.4-46.3 fL RDW Coefficient of Variation 13.0 11.5-14.5 % Platelet Count 150 130-400 K/uL Mean Platelet Volume 10.4 7.4-10.4 fL Sodium Level 137 136-145 mmol/L Potassium Level 4.4 3.5-5.1 mmol/L Chloride Level 101 98-107 mmol/L Carbon Dioxide Level 32 21-32 mmol/L Anion Gap 4.0 3-11 mmol/L Blood Urea Nitrogen 12 7-18 mg/dl Creatinine 1.00 0.60-1.40 mg/dl Est Creatinine Clear Calc Drug Dose 56.0 ml/min Estimated GFR () 81.4 Estimated GFR (Non- 70.3 BUN/Creatinine Ratio 11.6 10-20 Random Glucose 133 70-99 mg/dl Calcium Level 8.7 8.5-10.1 mg/dl Phosphorus Level 2.4 2.5-4.9 mg/dl Magnesium Level 2.2 1.8-2.4 mg/dl Assessment & Plan 05/04/17- s/p open ventral hernia repair w/ mesh- overall stable- stop IV fluid, cont atbx, ambulate, leave drain- check labs
[2017-05-04 07:50] VITALS: BP 139/67; PULSE 68; TEMP 37.3; O2SAT 93
[2017-05-04] MEDS: CLINDAMYCIN IV 600 MG in DEXTROSE 5% 50ML 50 ML IV SCH (08:07)
[2017-05-04] MEDS: MAGNESIUM HYDROXIDE SUSP 30 ML UDC PO SCH ×2 (08:08→21:12)
[2017-05-04] MEDS: DOCUSATE SODIUM/SENNA 50/8.6MG TAB PO SCH ×2 (08:08→21:12)
[2017-05-04] MEDS: METOPROLOL TARTRATE 25 MG TAB PO SCH ×2 (08:08→21:12)
--- NOTE | 2017-05-04 08:36 | Anesthesiology Progress Note ---
Anesthesia Post Op Note Date & Time May 04, 2017 at 08:36 Vital Signs Pain Intensity: 2.0 Vital Signs Past 12 Hours Date Time Temp Pulse Resp B/P (MAP) Pulse Ox O2 Delivery O2 Flow Rate FiO2 05/04/17 07:50 37.3 68 18 139/67 (91) 93 Room Air 05/04/17 03:50 36.5 68 16 144/65 (91) 91 Room Air 05/04/17 00:51 150/75 (100) 05/03/17 23:45 Room Air 05/03/17 23:22 36.3 72 18 208/102 (137) 92 Room Air 05/03/17 20:45 84 152/84 (106) Notes Mental Status: alert / awake / arousable Pt Amnestic to Procedure: Yes Nausea / Vomiting: adequately controlled Pain: adequately controlled Airway Patency, RR, SpO2: stable & adequate BP & HR: stable & adequate Hydration State: stable & adequate pt stated pain was only with movement
[2017-05-04] MEDS ORDERED: HYDR-5688 PO (13:47)
[2017-05-04] MEDS ORDERED: CIPR1TAB10 PO (13:47)
--- NOTE | 2017-05-04 13:49 | Discharge Instructions ---
Discharge Instructions Date of Service May 04, 2017. Admission Reason for Admission: Ventral Hernia Discharge Discharge Diagnosis / Problem: ventral hernia Discharge Goals Goal(s): Decrease discomfort, Improve function, Improve disease control Activity Recommendations Activity Limitations: as noted below Lifting Limitations: no more than 10 pounds Exercise/Sports Limitations: until after follow-up appointment May Resume Sexual Activity: after follow-up appointment Shower/Bathe: tomorrow (shower only) Driving or Machine Use: wait 1 week . Instructions / Follow-Up Instructions / Follow-Up SPECIAL CARE INSTRUCTIONS: * Cover incisions and change daily for comfort/drainage. * Empty drain 2-3 times per day and record. avoid constipation- may use Senokot S and Milk of Magnesia twice daily as directed on the package * May use ibuprofen for pain as tolerated. * Expect some swelling and bruising. Call your doctor if: * Temperature above 101 degrees * Pain not relieved by pain medicine ordered * There is increased drainage or redness from any incision * You have any unanswered questions or concerns [phone]. FOLLOW UP VISIT: If not already scheduled, please call the office for a follow-up visit. for 05/08- drain removal OFFICE PHONE NUMBER: Dr. Xie Office Current Hospital Diet Patient's current hospital diet: Regular Diet Discharge Diet Recommended Diet: Regular Diet Procedures Procedures Performed: Ventral Hernia Repair with Mesh Pending Studies Studies pending at discharge: no Medical Emergencies . Who to Call and When: Medical Emergencies: If at any time you feel your situation is an emergency, please call 911 immediately. . Non-Emergent Contact Non-Emergency issues call your: Primary Care Provider, Surgeon . "Provider Documentation" section prepared by Robles Xie. . VTE Core Measure Inpt VTE Proph given/why not?: SCD's
[2017-05-04 15:50] VITALS: BP 155/78; PULSE 66; TEMP 36.9; O2SAT 94
[2017-05-04] MEDS ORDERED: DILTIAZEM HCL (TIAzac) 180 MG CAPCR PO SCH (21:00)
[2017-05-04 21:10] VITALS: BP 192/93; PULSE 76
[2017-05-04 23:47] VITALS: BP 154/71; PULSE 65; TEMP 36.6; O2SAT 93
--- NOTE | 2017-05-05 00:04 | Hospitalist Progress Note ---
Hospitalist Progress Note Date of Service May 04, 2017. Subjective Pt evaluation today including: conversation w/ patient, conversation w/ family , physical exam, lab review Pt doing very well except has not passed any flatus today. He is out ambulating the hallways with no problems. No CP or SOB, feels very well. No abd pain, is eating and no N/V. All Other Systems: Reviewed and Negative Objective Vital Signs Date Time Temp Pulse Resp B/P (MAP) Pulse Ox O2 Delivery O2 Flow Rate FiO2 05/04/17 23:47 36.6 65 16 154/71 (98) 93 Room Air 05/04/17 21:10 76 192/93 (126) 05/04/17 16:15 Room Air 05/04/17 15:50 36.9 66 16 155/78 (103) 94 Room Air 05/04/17 08:10 Room Air 05/04/17 07:50 37.3 68 18 139/67 (91) 93 Room Air 05/04/17 03:50 36.5 68 16 144/65 (91) 91 Room Air 05/04/17 00:51 150/75 (100) Physical Exam General Appearance: WD/WN, no apparent distress Eyes: normal inspection, sclerae normal ENT: hearing grossly normal Neck: trachea midline Respiratory/Chest: lungs clear, normal breath sounds, no respiratory distress, no accessory muscle use Cardiovascular: regular rate, rhythm, no edema, no gallop, no murmur Abdomen: soft, + abnormal bowel sounds (hypoactive but present), + tenderness ( over incision site without guarding or rebound tenderness) Extremities: non-tender, normal inspection, no pedal edema, no calf tenderness Neurologic/Psychiatric: alert, normal mood/affect, oriented x 3 Skin: normal color, warm/dry, no rash, + pertinent finding (dressing over abdominal incision is c/d/i) Laboratory Results Last 24 Hours Test 05/04/17 04:37 White Blood Count 8.54 K/uL Red Blood Count 4.75 M/uL Hemoglobin 15.3 g/dL Hematocrit 44.7 % Mean Corpuscular Volume 94.1 fL Mean Corpuscular Hemoglobin 32.2 pg Mean Corpuscular Hemoglobin Concent 34.2 g/dl RDW Standard Deviation 44.9 fL RDW Coefficient of Variation 13.0 % Platelet Count 150 K/uL Mean Platelet Volume 10.4 fL Sodium Level 137 mmol/L Potassium Level 4.4 mmol/L Chloride Level 101 mmol/L Carbon Dioxide Level 32 mmol/L Anion Gap 4.0 mmol/L Blood Urea Nitrogen 12 mg/dl Creatinine 1.00 mg/dl Est Creatinine Clear Calc Drug Dose 56.0 ml/min Estimated GFR () 81.4 Estimated GFR (Non- 70.3 BUN/Creatinine Ratio 11.6 Random Glucose 133 mg/dl Calcium Level 8.7 mg/dl Phosphorus Level 2.4 mg/dl Magnesium Level 2.2 mg/dl Assessment and Plan Patient is seen status post open ventral hernia repair--medically stable, still awaiting for him to pass flatus -Surgery managing post-op care -continue ambulation -has YADIRA drain in place Hypertension/history of lone atrial fibrillation with RVR in setting of acute cholecystitis/bradycardia-- -ok to continue Tiazac Continue metoprolol tartrate 12.5 mg by mouth twice a day, with hold for heart rate less than 60 or systolic blood pressure less than 120. Place on hydralazine 10 mg IV every 4 hours when necessary systolic blood pressure greater than 160 if heart rate less than 70. -is no longer on Eliquis -discontinued recently by Cardiology as he had lone A- fib and can tell when he was in A-fib -restart ASA 81mg daily on discharge Hypothyroidism--continue levothyroxine sodium 100 g by mouth every morning. Thank you for this consult. [facility] Service will follow along during hospital stay.
[2017-05-05] MEDS: LEVOTHYROXINE 100 MCG TAB PO SCH (06:08)
[2017-05-05 07:31] VITALS: BP 161/85; PULSE 67; TEMP 37.2; O2SAT 93
--- NOTE | 2017-05-05 08:02 | DISCHARGE SUMMARY ---
DATE OF DISCHARGE: 05/05/2017 PRINCIPAL DIAGNOSIS: Ventral hernia. PROCEDURES: The patient underwent ventral hernia repair with mesh as an open procedure. HISTORY OF PRESENT ILLNESS: The patient is an 81-year-old male who developed a ventral hernia requiring mesh repair. HOSPITAL COURSE: The patient was brought in the hospital on 05/03/2017 where he underwent open ventral hernia repair with mesh with drain placement. Postoperatively, he has done relatively well. He did have a mild ileus but has been passing flatus and is felt stable for discharge home today to be followed in the surgical clinic within 3-4 days for drain removal.
[2017-05-05] MEDS: METOPROLOL TARTRATE 25 MG TAB PO SCH (09:06)
[2017-05-05] MEDS: MAGNESIUM HYDROXIDE SUSP 30 ML UDC PO SCH (09:06)
[2017-05-05] MEDS: DOCUSATE SODIUM/SENNA 50/8.6MG TAB PO SCH (09:06)
--- NOTE | 2017-05-05 09:48 | Hospitalist Progress Note ---
Hospitalist Progress Note Date of Service May 05, 2017. Subjective Pt evaluation today including: conversation w/ patient, conversation w/ family , physical exam PO Intake: tolerating reg diet Voiding: no voiding problems Pt feeling well, no fevers/chills, is now passing flatus, no BM, no N/V, no CP or SOB. However, RN has noticed erythema around his incision and has called Dr. Xie to come back to see him as he was to be discharged this AM. All Other Systems: Reviewed and Negative Objective Vital Signs Date Time Temp Pulse Resp B/P (MAP) Pulse Ox O2 Delivery O2 Flow Rate FiO2 05/05/17 07:31 37.2 67 19 161/85 (110) 93 Room Air 05/05/17 00:15 Room Air 05/04/17 23:47 36.6 65 16 154/71 (98) 93 Room Air 05/04/17 21:10 76 192/93 (126) 05/04/17 16:15 Room Air 05/04/17 15:50 36.9 66 16 155/78 (103) 94 Room Air Physical Exam General Appearance: WD/WN, no apparent distress Eyes: normal inspection, sclerae normal ENT: hearing grossly normal Neck: trachea midline Respiratory/Chest: lungs clear, normal breath sounds, no respiratory distress, no accessory muscle use Cardiovascular: regular rate, rhythm, no edema, no gallop, no murmur Abdomen: normal bowel sounds, soft, + tenderness (minimal around incision site , no guarding), + pertinent finding (dressing in place over lower abdomen, YADIRA drain coming form lower right portion of dressing, mild blanching erythema spreading superiorly from dressing site that is warm to the touch, dressing not removed by me-defer to Surgeon) Extremities: non-tender, normal inspection, no pedal edema Neurologic/Psychiatric: alert, normal mood/affect, oriented x 3 Skin: warm/dry Assessment and Plan Patient is seen status post open ventral hernia repair--has passed flatus and doing well, however now wound with surrounding erythema. Was on clindamycin x 1- 2 days. Afebrile -Surgery managing post-op care -will await Surgeon to come back to take down dressing and reassess wound to see if needs further abx and hospital stay vs dc to home with close outpt and/ or home RN care -continue ambulation -has YADIRA drain in place to go home with Hypertension/history of lone atrial fibrillation with RVR in setting of acute cholecystitis/bradycardia-- BPs elevated here could be secondary to pain -continue Tiazac -Continue metoprolol tartrate 12.5 mg by mouth twice a day -continue hydralazine 10 mg IV every 4 hours when necessary systolic blood pressure greater than 160 if heart rate less than 70. -is no longer on Eliquis -discontinued recently by Cardiology as he had lone A- fib and can tell when he was in A-fib -restart ASA 81mg daily on discharge -f/u with PCP for BP although normally is well controlled so will not adjust meds or add on third med at this time Hypothyroidism--continue levothyroxine sodium 100 g by mouth every morning. Thank you for this consult. [facility] will follow along during hospital stay.
[2017-05-05] MEDS ORDERED: CEPH500C2 PO (10:03)
[2017-05-05 10:53] VITALS: BP 161/85; PULSE 67; TEMP 37.2; O2SAT 93
== END 2017-05-05 11:20 | disposition home health service (06) | DRG 355 ==
LOC: C.ACU 06:57 → C.MSN 09:58 → ENRESERV 10:38 → OBSVTOIN 05-04 05:57
PROVIDERS: ADMIT Surgery; ATTEND Surgery
PROC: 0WUF0JZ Supplement Abdominal Wall with Synthetic Substitute, Open Approach (ICD-10-PCS; principal; 2017-05-03 08:30)
DX: K43.9 Ventral hernia without obstruction or gangrene (principal); I10 Essential (primary) hypertension; I48.91 Unspecified atrial fibrillation; R00.1 Bradycardia, unspecified; E03.9 Hypothyroidism, unspecified; Z79.899 Other long term (current) drug therapy; Z87.891 Personal history of nicotine dependence; Z79.01 Long term (current) use of anticoagulants

== ENCOUNTER → 2017-08-17 | Outpatient (CLI) | payer BC ==
[~2017-08-17] MED LIST changes: +CEPH500C2 PO; -CLINDAMYCIN IV 900 MG in DEXTROSE 5% 100ML 100 ML IV SCH; +HYDR-5688 PO; -LACTATED RINGER'S 1000ML 1,000 ML IV SCH
--- NOTE | 2017-08-17 08:46 | DIAGNOSTIC IMAGING REPORT ---
CHEST 2 VIEWS ROUTINE CLINICAL HISTORY: COUGH COMPARISON STUDY: 01/07/2017 FINDINGS: The heart is enlarged. There is aortic tortuosity/ectasia. There is no failure. Bibasilar opacities remain similar and likely represent areas of atelectasis/scarring, although a pneumonitis could appear similar. There is no lobar consolidation. 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 There is an old right-sided rib deformity.[ IMPRESSION: 1. Cardiomegaly 2. Persistent bibasilar opacities, likely atelectatic, although a pneumonitis could appear similar. Clinical and radiographic follow-up is recommended. Electronically signed by: Medhat Ovalles M.D. 08/17/2017 8:45 AM Dictated Date/Time: 08/17/2017 8:42 AM
[2017-08-17 10:54] LABS: BASO % 0.2 %; BASO ABS # 0.01 K/uL (0-0.2); COMPLETE YES; EOS % 2.1 %; HEMATOCRIT 45.5 % (42-52); LYMPH % 17.7 %; LYMPH ABS # 0.85 K/uL (1.2-3.4); MEAN CELL VOLUME 94.8 fL (80-100); MEAN CORPUSCULAR HEMOGLOBIN 31.7 pg (25-34); MEAN CORPUSCULAR HGB CONC 33.4 g/dl (32-36); MEAN PLATELET VOLUME 10.6 fL (7.4-10.4); MONO % 17.1 %; NEUT % 62.9 %; PLATELET COUNT 144 K/uL (130-400)
[2017-08-17 11:07] LABS: ALT/SGPT 21 U/L (12-78); AST/SGOT 18 U/L (15-37); BLOOD UREA NITROGEN 20 mg/dl (7-18); BUN/CREATININE RATIO 18.3 (10-20); CALCIUM 8.6 mg/dl (8.5-10.1); CARBON DIOXIDE 25 mmol/L (21-32); CHLORIDE 107 mmol/L (98-107); CREATININE 1.12 mg/dl (0.60-1.40); GLUCOSE 94 mg/dl (70-99); POTASSIUM 4.1 mmol/L (3.5-5.1); SODIUM 138 mmol/L (136-145)
[2017-08-17 11:17] LABS: ALB/GLOB RATIO 0.8 (0.9-2); ALKALINE PHOSPHATASE 79 U/L (45-117); THYROID STIMULATING HORMONE 0.953 uIu/ml (0.300-4.500)
== END | disposition home or self-care (01) ==
LOC: C.RADBC 07:59
PROVIDERS: ATTEND Physician Assistant
DX: R91.8 Other nonspecific abnormal finding of lung field (principal); I51.7 Cardiomegaly

== ENCOUNTER → 2018-02-08 | Outpatient (CLI) | payer BC ==
[~2018-02-08] MED LIST changes: -CEPH500C2 PO; -HYDR-5688 PO
[2018-02-08 17:12] LABS: BASO % 0.2 %; BASO ABS # 0.01 K/uL (0-0.2); EOS % 1.2 %; EOS ABS # 0.06 K/uL (0-0.5); HEMATOCRIT 44.3 % (42-52); HEMOGLOBIN 14.9 g/dL (14.0-18.0); IG# 0.01 K/uL (0.00-0.02); LYMPH % 20.3 %; MEAN CELL VOLUME 93.9 fL (80-100); MEAN CORPUSCULAR HEMOGLOBIN 31.6 pg (25-34); MEAN CORPUSCULAR HGB CONC 33.6 g/dl (32-36); MEAN PLATELET VOLUME 10.3 fL (7.4-10.4); MONO % 8.1 %; NEUT ABS # 3.45 K/uL (1.4-6.5); PLATELET COUNT 172 K/uL (130-400); RED CELL DISTRIBUTION WIDTH CV 13.9 % (11.5-14.5); WHITE BLOOD COUNT 4.93 K/uL (4.8-10.8)
[2018-02-08 18:29] LABS: BLOOD UREA NITROGEN 16 mg/dl (7-18); CALCIUM 8.5 mg/dl (8.5-10.1); CARBON DIOXIDE 26 mmol/L (21-32); CREATININE 1.19 mg/dl (0.60-1.40); GLUCOSE 93 mg/dl (70-99); POTASSIUM 4.5 mmol/L (3.5-5.1); SODIUM 141 mmol/L (136-145)
== END | disposition home or self-care (01) ==
LOC: C.LAB 13:33
PROVIDERS: ATTEND Internal Medicine
DX: Z01.818 Encounter for other preprocedural examination (principal); K43.2 Incisional hernia without obstruction or gangrene

== ENCOUNTER → 2018-02-12 | Outpatient (CLI) | payer BC ==
[~2018-02-12] MED LIST changes: +APIX1TAB3 PO; +CHOL1000 PO; +CYAN100020 PO; +MAGNESIUM PO; +METO25TA56 PO; +OPTIRAY 320 IV PRN; +VGR50 PO
--- NOTE | 2018-02-12 09:25 | DIAGNOSTIC IMAGING REPORT ---
ADDENDUM Last sentence of IMPRESSION #1 should read: "STERILITY cannot be determined by imaging alone". Electronically signed by: James Thomas M.D. 02/12/2018 9:38 AM Dictated Date/Time: 02/12/2018 9:38 AM ORIGINAL REPORT ABDOMEN AND PELVIS CT WITH IV AND ORAL CONTRAST CT DOSE: 465.70 mGy.cm HISTORY: Abdominal wall hernia with evidence of prior cholecystectomy K43.2 Recurrent ventral incisional herniaASSSESS RECURRENT INCIS TECHNIQUE: Multiaxial CT images of the abdomen and pelvis were performed following the use of intravenous and oral contrast. A dose lowering technique was utilized adhering to the principles of ALARA. COMPARISON STUDY: MRI of the abdomen 03/20/2017, CT abdomen and pelvis 01/08/2017. FINDINGS: Minimal subsegmental bibasilar atelectasis. No pneumatosis or pneumoperitoneum identified. Imaged inferior cardiac chambers are mildly enlarged with coronary arterial calcifications noted. Prior cholecystectomy. Low attenuating lesions of the liver, notably within the left hepatic lobe measuring up to 1.1 cm suggest probable hepatic cysts. No intrahepatic biliary ductal dilation. Spleen, pancreas and adrenal glands are within normal limits. 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 Low attenuating circumscribed 5.1 x 5.4 cm lesion of the inferior pole left kidney is compatible with renal cyst. No renal calculi or obstructive uropathy. Ureters and bladder are unremarkable. Prostate is mildly enlarged. Small fat filled right inguinal hernia. Moderate mixed plaquing of the aorta without aneurysm. No bulky adenopathy. IVC is unremarkable. Small duodenal diverticulum. No bowel obstruction. Tortuosity of the sigmoid colon. Noninflamed colonic diverticulosis. Nondistention involves the majority of the colon. The appendix is not seen and may be surgically absent. No mesenteric inflammatory changes or ascites. Ventral abdominal wall hernia measuring 4.8 x 2.1 cm in AP and craniocaudal dimensions contains mesenteric fat and nonobstructed small bowel, image 204 series 3. Just inferior to this there is a peripherally enhancing loculated fluid collection of the central abdominal wall, 4.8 x 2.0 x 4.5 cm, image 239 series 3 along the ventral abdominal wall periumbilical tissues. Facet arthrosis. Severe multilevel degenerative changes about the spine. IMPRESSION: 1. Moderate sized ventral supraumbilical abdominal wall hernia contains mesenteric fat and a nonobstructed loop of small bowel. Additionally, there is a peripherally enhancing loculated fluid collection of the ventral abdominal wall periumbilical tissues measuring up to 4.8 cm suggesting postoperative fluid collection or abscess. Stability cannot be determined by imaging alone. 2. Prior cholecystectomy. 3. No bowel obstruction. 4. Additional findings as above. Electronically signed by: James Thomas M.D. 02/12/2018 9:23 AM Dictated Date/Time: 02/12/2018 9:09 AM
== END | disposition home or self-care (01) ==
LOC: C.CTS 08:30
PROVIDERS: ATTEND Surgery
DX: K43.2 Incisional hernia without obstruction or gangrene (principal)